=== PATIENT | female | born 1950 | race Caucasian/White ===

== ENCOUNTER 2017-01-14 09:59 | Emergency (ER) | payer BC, OTHER ==
[2017-01-14] MEDS ORDERED: Albuterol/Ipratropium 3.0-0.5 MG/3 ML Neb Soln ONE (10:03)
[2017-01-14] MEDS ORDERED: Albuterol/Ipratropium 3.0-0.5 MG/3 ML Neb Soln NEB ONE (10:03)
[2017-01-14] MEDS ORDERED: methylPREDNISolone Sodium Succinate 125 MG/2 ML SDV IM ONE (10:10)
--- NOTE | 2017-01-14 10:10 | EDM.PDOC ---
ED HISTORY OF PRESENT ILLNESS - General Chief Complaint: Respiratory Problem Stated Complaint: TROUBLE BREATHING Time Seen by Provider: 01/14/17 10:09 Source of Information: Reports: Patient - History of Present Illness INITIAL COMMENTS - FREE TEXT/NARRATIVE: HISTORY AND PHYSICAL: History of present illness: [] Patient presents post treatment for recent bronchitis, last week she saw Chelsie at [facility] and was diagnosed with bronchitis, she is provided azithromycin and HFA which he is using. However she has been wheezing over the last couple of days and therefore is been short of breath with ambulation, she is in no distress no retractions no purse lip breathing, but she has diffuse wheeze throughout. Denies smoking history No fever nausea vomiting chills sweats no chest pain headache dizziness or palpitation no bowel or urine symptoms Patient provided DuoNeb and Solu-Medrol with resolution of symptoms, ambulatory O2 sat 95% unremarkable Review of systems: As per history of present illness and below otherwise all systems reviewed and negative. Past medical history: As per history of present illness and as reviewed below otherwise noncontributory. Surgical history: As per history of present illness and as reviewed below otherwise noncontributory. Social history: No reported history of drug or alcohol abuse. Family history: As per history of present illness and as reviewed below otherwise noncontributory. Physical exam: HEENT: Atraumatic, normocephalic, pupils reactive, negative for conjunctival pallor or scleral icterus, mucous membranes moist, throat clear, neck supple, nontender, trachea midline. Lungs: Clear to auscultation, breath sounds equal bilaterally, chest nontender. Heart: S1S2, regular, negative for clicks, rubs, or JVD. Abdomen: Soft, nondistended, nontender. Negative for masses or hepatosplenomegaly. Negative for costovertebral tenderness. Pelvis: Stable nontender. Genitourinary: Deferred. Rectal: Deferred. Extremities: Atraumatic, negative for cords or calf pain. Neurovascular unremarkable. Neuro: Awake, alert, oriented. Cranial nerves II through XII unremarkable. Cerebellum unremarkable. Motor and sensory unremarkable throughout. Exam nonfocal. Diagnostics: [] Lab as below EKG Chest one view Therapeutics: [] Dual neb Solu-Medrol 125 mg IM Medrol Dosepak Continue HFA Return if symptoms persist or worsen Followup with primary care in 2 weeks sooner as needed Impression: [] Acute bronchitis Definitive disposition and diagnosis as appropriate pending reevaluation and review of above. - Related Data Allergies/ADRs: Allergies Allergy/AdvReac Type Severity Reaction Status Date / Time codeine Allergy Abdominal Verified 01/14/17 10:10 Pain morphine Allergy Abdominal Verified 01/14/17 10:09 Pain Sulfa (Sulfonamide Allergy Rash Verified 01/14/17 10:10 Antibiotics) Home Meds: Home Meds ALPRAZolam [Xanax] 0.25 mg PO ASDIRECTED PRN 01/14/17 [History] Etanercept [Enbrel] 50 mg SQ WEEKLY 01/14/17 [History] Isosorbide Mononitrate [Isosorbide Mononitrate ER] 30 mg PO DAILY 01/14/17 [ History] Levothyroxine [Synthroid] 50 mcg PO ACBREAKFAST 01/14/17 [History] Lisinopril 10 mg PO DAILY 01/14/17 [History] ED ROS GENERAL - Review of Systems Review Of Systems: ROS reveals no pertinent complaints other than HPI. ED EXAM, GENERAL - Physical Exam Exam: See Below Course - Vital Signs Last Recorded V/S: Last Vital Signs Temp 36.6 C 01/14/17 09:59 Pulse 80 01/14/17 09:59 Resp 22 H 01/14/17 09:59 BP 179/72 H 01/14/17 09:59 Pulse Ox 96 01/14/17 10:17 - Orders/Labs/Meds Orders: Active Orders 24 hr Category Date Time Status EKG 12 Lead [EKG Documentation Completion] [RC] STAT Care 01/14/17 10:02 Active EKG Documentation Completion [RC] STAT Care 01/14/17 10:08 Active RT Aerosol Therapy [RC] ASDIRECTED Care 01/14/17 10:27 Active Chest 1V Frontal [CR] Stat Exams 01/14/17 10:08 Taken Labs: Laboratory Tests 01/14/17 01/14/17 01/14/17 Range/Units 10:19 10:19 10:19 WBC 11.02 H (4.0-11.0) K/uL RBC 4.45 (4.30-5.90) M/uL Hgb 13.6 (12.0-16.0) g/dL Hct 42.0 (36.0-46.0) % MCV 94.4 (80.0-98.0) fL MCH 30.6 (27.0-32.0) pg MCHC 32.4 (31.0-37.0) g/dL RDW Std Deviation 45.2 (28.0-62.0) fl RDW Coeff of Jessika 13 (11.0-15.0) % Plt Count 292 (150-400) K/uL MPV 10.50 (7.40-12.00) fL Neut % (Auto) 72.8 (48.0-80.0) % Lymph % (Auto) 19.4 (16.0-40.0) % [place] % (Auto) 4.5 (0.0-15.0) % Eos % (Auto) 3.0 (0.0-7.0) % Baso % (Auto) 0.3 (0.0-1.5) % Neut # (Auto) 8.0 H (1.4-5.7) K/uL Lymph # (Auto) 2.1 (0.6-2.4) K/uL Hardeman # (Auto) 0.5 (0.0-0.8) K/uL Eos # (Auto) 0.3 (0.0-0.7) K/uL Baso # (Auto) 0.0 (0.0-0.1) K/uL Nucleated RBC % 0.0 /100WBC Nucleated RBCs # 0 K/uL Sodium 140 (136-146) mmol/L Potassium 4.1 (3.5-5.1) mmol/L Chloride 107 (98-110) mmol/L Carbon Dioxide 24 (21-31) mmol/L BUN 10 (6.0-23.0) mg/dL Creatinine 0.8 (0.6-1.5) mg/dL Est Cr Clr Drug Dosing 63.93 mL/min Estimated GFR (MDRD) > 60.0 ml/min Glucose 128 H (60-110) mg/dL Calcium 9.5 (8.8-10.8) mg/dL Total Bilirubin 0.5 (0.1-1.5) mg/dL AST 14 (5-40) IU/L ALT 18 (8-54) IU/L Alkaline Phosphatase 110 (40-150) Troponin I < 0.10 (0.0-0.29) NG/ML Total Protein 7.6 (6.0-8.0) g/dL Albumin 4.0 (3.4-4.8) g/dL Globulin 3.6 H (2.0-3.5) g/dL Albumin/Globulin Ratio 1.1 L (1.3-2.8) Urine Color Urine Appearance Urine pH (5.0-8.0) Ur Specific [place] (1.001-1.035) Urine Protein (NEGATIVE) mg/dL Urine Glucose (UA) (NEGATIVE) mg/dL Urine Ketones (NEGATIVE) mg/dL Urine Occult Blood (NEGATIVE) Urine Nitrite (NEGATIVE) Urine Bilirubin (NEGATIVE) Urine Urobilinogen (<2.0) EU/dL Ur Leukocyte Esterase (NEGATIVE) Urine RBC (0-2/HPF) Urine WBC (0-5/HPF) Ur Epithelial Cells (NONE-FEW) Urine Bacteria (NEGATIVE) 01/14/17 Range/Units 10:25 WBC (4.0-11.0) K/uL RBC (4.30-5.90) M/uL Hgb (12.0-16.0) g/dL Hct (36.0-46.0) % MCV (80.0-98.0) fL MCH (27.0-32.0) pg MCHC (31.0-37.0) g/dL RDW Std Deviation (28.0-62.0) fl RDW Coeff of Jessika (11.0-15.0) % Plt Count (150-400) K/uL MPV (7.40-12.00) fL Neut % (Auto) (48.0-80.0) % Lymph % (Auto) (16.0-40.0) % Hardeman % (Auto) (0.0-15.0) % Eos % (Auto) (0.0-7.0) % Baso % (Auto) (0.0-1.5) % Neut # (Auto) (1.4-5.7) K/uL Lymph # (Auto) (0.6-2.4) K/uL Hardeman # (Auto) (0.0-0.8) K/uL Eos # (Auto) (0.0-0.7) K/uL Baso # (Auto) (0.0-0.1) K/uL Nucleated RBC % /100WBC Nucleated RBCs # K/uL Sodium (136-146) mmol/L Potassium (3.5-5.1) mmol/L Chloride (98-110) mmol/L Carbon Dioxide (21-31) mmol/L BUN (6.0-23.0) mg/dL Creatinine (0.6-1.5) mg/dL Est Cr Clr Drug Dosing mL/min Estimated GFR (MDRD) ml/min Glucose (60-110) mg/dL Calcium (8.8-10.8) mg/dL Total Bilirubin (0.1-1.5) mg/dL AST (5-40) IU/L ALT (8-54) IU/L Alkaline Phosphatase (40-150) Troponin I (0.0-0.29) NG/ML Total Protein (6.0-8.0) g/dL Albumin (3.4-4.8) g/dL Globulin (2.0-3.5) g/dL Albumin/Globulin Ratio (1.3-2.8) Urine Color YELLOW Urine Appearance CLEAR Urine pH 7.5 (5.0-8.0) Ur Specific [place] 1.015 (1.001-1.035) Urine Protein NEGATIVE (NEGATIVE) mg/dL Urine Glucose (UA) NEGATIVE (NEGATIVE) mg/dL Urine Ketones NEGATIVE (NEGATIVE) mg/dL Urine Occult Blood NEGATIVE (NEGATIVE) Urine Nitrite NEGATIVE (NEGATIVE) Urine Bilirubin NEGATIVE (NEGATIVE) Urine Urobilinogen 0.2 (<2.0) EU/dL Ur Leukocyte Esterase TRACE (NEGATIVE) Urine RBC 0-1 (0-2/HPF) Urine WBC 0-2 (0-5/HPF) Ur Epithelial Cells FEW (NONE-FEW) Urine Bacteria FEW (NEGATIVE) Meds: Medications Discontinued Medications Generic Name Dose Route Start Last Admin Trade Name Freq PRN Reason Stop Dose Admin Albuterol/Ipratropium Confirm 01/14/17 10:03 01/14/17 10:16 Duoneb 3.0-0.5 Mg/3 Ml Administered 01/14/17 10:04 3 ml Dose Administration 3 ml .ROUTE .STK-MED ONE Albuterol/Ipratropium 3 ml 01/14/17 10:03 01/14/17 11:11 Duoneb 3.0-0.5 Mg/3 Ml NEB 01/14/17 10:04 Not Given ONETIME ONE Methylprednisolone Sodium Succinate 125 mg 01/14/17 10:10 01/14/17 11:11 Solu-Medrol IM 01/14/17 10:11 125 mg ONETIME ONE Administration Departure - Departure Time of Disposition: 11:43 Disposition: Home, Self-Care 01 Condition: good Clinical Impression: Acute bronchitis Forms: ED Department Discharge Additional Instructions: Medication as prescribed Continue albuterol as prescribed Return to ER if symptoms persist or worsen despite treatment Followup with Eunice Morejon as needed or in 2 weeks The following information is given to patients seen in the emergency department who are being discharged to home. This information is to outline your options for follow-up care. We provide all patients seen in our emergency department with a follow-up referral. The need for follow-up, as well as the timing and circumstances, are variable depending upon the specifics of your emergency department visit. If you don't have a primary care physician on staff, we will provide you with a referral. We always advise you to contact your personal physician following an emergency department visit to inform them of the circumstance of the visit and for follow-up with them and/or the need for any referrals to a consulting specialist. The emergency department will also refer you to a specialist when appropriate. This referral assures that you have the opportunity for follow-up care with a specialist. All of these measure are taken in an effort to provide you with optimal care, which includes your follow-up. Under all circumstances we always encourage you to contact your private physician who remains a resource for coordinating your care. When calling for follow-up care, please make the office aware that this follow-up is from your recent emergency room visit. If for any reason you are refused follow-up, please contact the [facility] emergency department at and asked to speak to the emergency department charge nurse. - My Orders Last 24 Hours: My Active Orders 01/14/17 10:02 EKG 12 Lead [EKG Documentation Completion] [RC] STAT 01/14/17 10:08 EKG Documentation Completion [RC] STAT Chest 1V Frontal [CR] Stat 01/14/17 10:27 RT Aerosol Therapy [RC] ASDIRECTED - Assessment/Plan Last 24 Hours: My Active Orders 01/14/17 10:02 EKG 12 Lead [EKG Documentation Completion] [RC] STAT 01/14/17 10:08 EKG Documentation Completion [RC] STAT Chest 1V Frontal [CR] Stat 01/14/17 10:27 RT Aerosol Therapy [RC] ASDIRECTED
[2017-01-14 10:47] LABS: CHLORIDE,CL 107 mmol/L (98-110); SODIUM,NA 140 mmol/L (136-146)
[2017-01-14 12:11] VITALS: BP 165/68
--- NOTE | 2017-01-14 16:10 | CR ---
EXAM DATE: 01/14/17 PATIENT'S AGE: 66 Patient: KENNY ARAMBULA Facility: [place], [place] Site . Site : 1950 Study: XRay Chest [id number]/27/2017 10:36:27 AM Ordering Physician: Levi Aggarwal Final Report: INDICATION: sob INDICATION: Shortness of breath. TECHNIQUE: Chest 1 view. COMPARISON: None FINDINGS: Cardiovascular and mediastinum: Heart size and vasculature are normal in caliber and appearance. Mediastinum is within normal limits. Lungs and pleural space: Lungs are clear. No sign of infiltrate or mass. No sign of pleural effusion. No pneumothorax. Bones and soft tissues: No significant findings. IMPRESSION: Unremarkable chest. Dictated by Amari Alicea MD @ 01/14/2017 10:56:27 AM Dictated by: Amari Alicea MD @ 01/14/2017 10:56:38 (Electronic Signature) Report Signed by Proxy. [facility]
== END 2017-01-14 12:12 | disposition home or self-care (01) ==
LOC: MW.ED 09:59
DX: J20.9 Acute bronchitis, unspecified (principal); Z79.899 Other long term (current) drug therapy; Z88.5 Allergy status to narcotic agent; Z88.2 Allergy status to sulfonamides; Z88.6 Allergy status to analgesic agent
CPT/HCPCS: 36415; 71010; 80053; 81001; 84484; 85025; 93005; 94664; 96372; 99285; J2930; 99284

== ENCOUNTER 2017-01-27 03:20 | Inpatient (IN) | payer BC ==
[2017-01-27] MEDS ORDERED: Albuterol/Ipratropium 3.0-0.5 MG/3 ML Neb Soln ONE (03:23)
[2017-01-27] MEDS ORDERED: Albuterol/Ipratropium 3.0-0.5 MG/3 ML Neb Soln NEB ONE (03:30)
[2017-01-27] MEDS ORDERED: methylPREDNISolone Sodium Succinate 125 MG/2 ML SDV IVPUSH ONE (03:30)
[2017-01-27] MEDS ORDERED: Sodium Chloride 0.9% 2.5 ML Syringe FLUSH PRN ×2 (03:30→04:28)
[2017-01-27] MEDS ORDERED: Sodium Chloride 0.9% 10 ML Syringe FLUSH PRN ×2 (03:30→04:28)
[2017-01-27] MEDS ORDERED: Sodium Chloride 0.9% 1,000 ML IV ONE (03:31)
--- NOTE | 2017-01-27 03:34 | EDM.PDOC ---
ED HPI GENERAL MEDICAL PROBLEM - General Chief Complaint: Respiratory Problem Stated Complaint: SHORTNESS OF BREATH Time Seen by Provider: 01/27/17 03:23 - History of Present Illness INITIAL COMMENTS - FREE TEXT/NARRATIVE: HISTORY AND PHYSICAL: History of present illness: The patient is a 66-year-old female with a history of hypertension hypothyroidism who presented to our ED on January 14 with shortness of breath and was treated as an acute bronchitis with steroids and inhalers. Patient says that she did go home on the Medrol Blue in and followed up with a provider on Wednesday and was placed on Zithromax Flovent and duo neb nebulizer and since that time she has been feeling more short of breath. She says she has a hacking cough for almost 3 weeks which is nonproductive she doesn't have any chest pain or shortness of breath seems to be worse. She is audibly wheezing but denies any fever chills vomiting nausea or diarrhea. Prior to these visits patient did not have any pulmonary history and has no smoking history. Patient denies any chest pain or leg edema. Patient states that she did do a nebulizer treatment this morning but did not see improvement. She states she has been using her nebulizer every 4 hours. Patient states she had one prior episode of acute bronchitis while she was status in October of this year and was treated with antibiotics and says she improved. Prior to that episode in October she has never had any bronchitic symptoms or episodes like she's been having this year. Review of systems: As per history of present illness and below otherwise all systems reviewed and negative. Past medical history: As per history of present illness and as reviewed below otherwise noncontributory. Surgical history: As per history of present illness and as reviewed below otherwise noncontributory. Social history: No reported history of drug or alcohol abuse. Family history: As per history of present illness and as reviewed below otherwise noncontributory. Physical exam: General: Well-developed overweight female who is nontoxic and breathless on my evaluation. Vitals been noted by me including a room air O2 sat of 86% tachypnea and hypertension.. She is audibly wheezing on my evaluation but is not diaphoretic. HEENT: Atraumatic, normocephalic, pupils reactive, negative for conjunctival pallor or scleral icterus, mucous membranes dry, throat clear, neck supple, nontender, trachea midline. Lungs: Tight air exchange with diffuse expiratory wheezing and mild increased work of breathing and abdominal muscle use but no stridor, breath sounds equal bilaterally, chest nontender. Heart: S1S2, regular rate and slightly tachycardic on my evaluation, negative for clicks, rubs, or JVD. Abdomen: Soft, nondistended, nontender. Negative for masses or hepatosplenomegaly. NABS Pelvis: Stable nontender. Genitourinary: Deferred. Rectal: Deferred. Extremities: Atraumatic, negative for cords or calf pain. Neurovascular unremarkable. No pedal edema or leg asymmetry Neuro: Awake, alert, oriented. Cranial nerves II through XII unremarkable. Cerebellum unremarkable. Motor and sensory unremarkable throughout. Exam nonfocal. Diagnostics: EKG chest x-ray CBC CMP troponin Therapeutics: IV O2 monitor IV fluids Solu-Medrol duo neb 0345: Reevaluation after DuoNeb patient is no longer audibly wheezing but still has tight air exchange with a fine expiratory wheeze and O2 sats on 3 L of oxygen are 96%. She is much less work of breathing and is not breathless. We will continue to monitor and repeat neb and have given her Solu-Medrol and await her testing results. Every discussed with the patient and at bedside in light of her presenting O2 sat of 86% she will be admitted to the hospital as it is unlikely to completely turn her around enough for discharge home. I discussed all testing results with the patient and at bedside. She is aware of need for admission. I will discuss the case with our hospitalist for further care plan and admission 0405: Case was discussed with our hospitalist Dr. Ovalles; he agrees with inpatient admission and would like to Zosyn to be given and no blood cultures at this time. Impression: Acute bronchospasm/recurrent bronchitis with hypoxia Definitive disposition and diagnosis as appropriate pending reevaluation and review of above. no pain verbalized Pain Score (Numeric/FACES): 0 - Related Data Allergies Allergy/AdvReac Type Severity Reaction Status Date / Time codeine Allergy Abdominal Verified 01/27/17 03:25 Pain morphine Allergy Abdominal Verified 01/27/17 03:25 Pain Sulfa (Sulfonamide Allergy Rash Verified 01/27/17 03:25 Antibiotics) Home Meds: Home Meds ALPRAZolam [Xanax] 0.25 mg PO ASDIRECTED PRN 01/14/17 [History] Isosorbide Mononitrate [Isosorbide Mononitrate ER] 30 mg PO DAILY 01/14/17 [ History] Levothyroxine [Synthroid] 75 mcg PO ACBREAKFAST 01/14/17 [History] Past Medical History Cardiovascular History: Reports: Hypertension Musculoskeletal History: Reports: RA Endocrine/Metabolic History: Reports: Hypothyroidism Social & Family History - Family History Family Medical History: Noncontributory - Tobacco Use Smoking Status *Q: Never Smoker - Recreational Drug Use Recreational Drug Use: No ED ROS GENERAL - Review of Systems Review Of Systems: ROS reveals no pertinent complaints other than HPI. ED EXAM, GENERAL - Physical Exam Exam: See Below (See dictation) Course - Vital Signs Last Recorded V/S: Last Vital Signs Temp 36.6 C 01/27/17 03:25 Pulse 107 H 01/27/17 04:02 Resp 26 H 01/27/17 04:02 BP 171/82 H 01/27/17 04:02 Pulse Ox 98 01/27/17 04:02 - Orders/Labs/Meds Orders: Active Orders 24 hr Category Date Time Status Patient Status [ADT] Stat ADT 01/27/17 04:07 Ordered Cardiac Monitoring [RC] . DIRECTED Care 01/27/17 03:30 Active Cardiac Monitoring [RC] . DIRECTED Care 01/27/17 04:07 Ordered EKG Documentation Completion [RC] STAT Care 01/27/17 03:30 Active Oxygen Therapy, ED [RC] ASDIRECTED Care 01/27/17 03:30 Active Pulse Oximetry [RC] ASDIRECTED Care 01/27/17 03:30 Active RT Aerosol Therapy [RC] ASDIRECTED Care 01/27/17 03:30 Active Chest 1V Frontal [CR] Stat Exams 01/27/17 03:30 Taken Piperacillin/Tazobactam [Piperacil-Tazobact] 3.375 gm Med 01/27/17 04:07 Ordered Sodium Chloride 0.9% [Normal Saline] 50 ml IV ONETIME Sodium Chloride 0.9% [Normal Saline] 1,000 ml Med 01/27/17 03:31 Active IV STAT Sodium Chloride 0.9% [Saline Flush] Med 01/27/17 03:30 Active 10 ml FLUSH ASDIRECTED PRN Sodium Chloride 0.9% [Saline Flush] Med 01/27/17 03:30 Active 2.5 ml FLUSH ASDIRECTED PRN Saline Lock Insert [OM.PC] Stat Oth 01/27/17 03:30 Ordered Medication Orders Sodium Chloride (Normal Saline) 1,000 mls @ 999 mls/hr IV STAT ONE Stop: 01/27/17 04:31 Last Admin: 01/27/17 03:36 Dose: 999 mls/hr Sodium Chloride (Saline Flush) 10 ml FLUSH ASDIRECTED PRN PRN Reason: Keep Vein Open Last Admin: 01/27/17 03:36 Dose: 10 ml Sodium Chloride (Saline Flush) 2.5 ml FLUSH ASDIRECTED PRN PRN Reason: Keep Vein Open Last Admin: 01/27/17 03:36 Dose: 2.5 ml Labs: Laboratory Tests 01/27/17 01/27/17 01/27/17 Range/Units 03:32 03:32 03:32 WBC 17.53 H (4.0-11.0) K/uL RBC 4.46 (4.30-5.90) M/uL Hgb 13.6 (12.0-16.0) g/dL Hct 42.9 (36.0-46.0) % MCV 96.2 (80.0-98.0) fL MCH 30.5 (27.0-32.0) pg MCHC 31.7 (31.0-37.0) g/dL RDW Std Deviation 45.2 (28.0-62.0) fl RDW Coeff of Jessika 13 (11.0-15.0) % Plt Count 301 (150-400) K/uL MPV 9.70 (7.40-12.00) fL Neut % (Auto) 68.2 (48.0-80.0) % Lymph % (Auto) 14.7 L (16.0-40.0) % [place] % (Auto) 7.3 (0.0-15.0) % Eos % (Auto) 9.5 H (0.0-7.0) % Baso % (Auto) 0.3 (0.0-1.5) % Neut # (Auto) 12.0 H (1.4-5.7) K/uL Lymph # (Auto) 2.6 H (0.6-2.4) K/uL [place] # (Auto) 1.3 H (0.0-0.8) K/uL Eos # (Auto) 1.7 H (0.0-0.7) K/uL Baso # (Auto) 0.1 (0.0-0.1) K/uL Lactate (0.20-2.00) mmol/L Sodium 139 (136-146) mmol/L Potassium 4.3 (3.5-5.1) mmol/L Chloride 106 (98-110) mmol/L Carbon Dioxide 24 (21-31) mmol/L BUN 17 (6.0-23.0) mg/dL Creatinine 0.9 (0.6-1.5) mg/dL Est Cr Clr Drug Dosing 56.82 mL/min Estimated GFR (MDRD) > 60.0 ml/min Glucose 148 H (60-110) mg/dL Calcium 9.5 (8.8-10.8) mg/dL Total Bilirubin 0.5 (0.1-1.5) mg/dL AST 11 (5-40) IU/L ALT 13 (8-54) IU/L Alkaline Phosphatase 102 (40-150) Troponin I < 0.10 (0.0-0.29) NG/ML Total Protein 7.4 (6.0-8.0) g/dL Albumin 4.0 (3.4-4.8) g/dL Globulin 3.4 (2.0-3.5) g/dL Albumin/Globulin Ratio 1.2 L (1.3-2.8) 01/27/17 Range/Units 03:32 WBC (4.0-11.0) K/uL RBC (4.30-5.90) M/uL Hgb (12.0-16.0) g/dL Hct (36.0-46.0) % MCV (80.0-98.0) fL MCH (27.0-32.0) pg MCHC (31.0-37.0) g/dL RDW Std Deviation (28.0-62.0) fl RDW Coeff of Jessika (11.0-15.0) % Plt Count (150-400) K/uL MPV (7.40-12.00) fL Neut % (Auto) (48.0-80.0) % Lymph % (Auto) (16.0-40.0) % [place] % (Auto) (0.0-15.0) % Eos % (Auto) (0.0-7.0) % Baso % (Auto) (0.0-1.5) % Neut # (Auto) (1.4-5.7) K/uL Lymph # (Auto) (0.6-2.4) K/uL [place] # (Auto) (0.0-0.8) K/uL Eos # (Auto) (0.0-0.7) K/uL Baso # (Auto) (0.0-0.1) K/uL Lactate 1.2 (0.20-2.00) mmol/L Sodium (136-146) mmol/L Potassium (3.5-5.1) mmol/L Chloride (98-110) mmol/L Carbon Dioxide (21-31) mmol/L BUN (6.0-23.0) mg/dL Creatinine (0.6-1.5) mg/dL Est Cr Clr Drug Dosing mL/min Estimated GFR (MDRD) ml/min Glucose (60-110) mg/dL Calcium (8.8-10.8) mg/dL Total Bilirubin (0.1-1.5) mg/dL AST (5-40) IU/L ALT (8-54) IU/L Alkaline Phosphatase (40-150) Troponin I (0.0-0.29) NG/ML Total Protein (6.0-8.0) g/dL Albumin (3.4-4.8) g/dL Globulin (2.0-3.5) g/dL Albumin/Globulin Ratio (1.3-2.8) Meds: Medications Generic Name Dose Route Start Last Admin Trade Name Freq PRN Reason Stop Dose Admin Sodium Chloride 1,000 mls @ 999 mls/hr 01/27/17 03:31 01/27/17 03:36 Normal Saline IV 01/27/17 04:31 999 mls/hr STAT ONE Administration Sodium Chloride 10 ml 01/27/17 03:30 01/27/17 03:36 Saline Flush FLUSH 10 ml ASDIRECTED PRN Administration Keep Vein Open Sodium Chloride 2.5 ml 01/27/17 03:30 01/27/17 03:36 Saline Flush FLUSH 2.5 ml ASDIRECTED PRN Administration Keep Vein Open Discontinued Medications Generic Name Dose Route Start Last Admin Trade Name Walker PRN Reason Stop Dose Admin Albuterol/Ipratropium Confirm 01/27/17 03:23 01/27/17 03:37 Duoneb 3.0-0.5 Mg/3 Ml Administered 01/27/17 03:24 Not Given Dose 3 ml .ROUTE .STK-MED ONE Albuterol/Ipratropium 3 ml 01/27/17 03:30 01/27/17 03:36 Duoneb 3.0-0.5 Mg/3 Ml NEB 01/27/17 03:31 3 ml ONETIME ONE Administration Methylprednisolone Sodium Succinate 125 mg 01/27/17 03:30 01/27/17 03:37 Solu-Medrol IVPUSH 01/27/17 03:31 125 mg ONETIME ONE Administration Departure - Departure Time of Disposition: 04:09 Disposition: Admitted As Inpatient 68 Condition: fair Clinical Impression: Hypoxia, Recurrent bronchospasm - Discharge Information Forms: ED Department Discharge - My Orders Last 24 Hours: My Active Orders 01/27/17 03:30 Cardiac Monitoring [RC] . DIRECTED EKG Documentation Completion [RC] STAT Oxygen Therapy, ED [RC] ASDIRECTED Pulse Oximetry [RC] ASDIRECTED RT Aerosol Therapy [RC] ASDIRECTED Chest 1V Frontal [CR] Stat Sodium Chloride 0.9% [Saline Flush] 10 ml FLUSH ASDIRECTED PRN Sodium Chloride 0.9% [Saline Flush] 2.5 ml FLUSH ASDIRECTED PRN Saline Lock Insert [OM.PC] Stat 01/27/17 03:31 Sodium Chloride 0.9% [Normal Saline] 1,000 ml IV STAT 01/27/17 04:07 Patient Status [ADT] Stat Cardiac Monitoring [RC] . DIRECTED Piperacillin/Tazobactam [Piperacil-Tazobact] 3.375 gm Sodium Chloride 0.9% [ Normal Saline] 50 ml IV ONETIME - Assessment/Plan Last 24 Hours: My Active Orders 01/27/17 03:30 Cardiac Monitoring [RC] . DIRECTED EKG Documentation Completion [RC] STAT Oxygen Therapy, ED [RC] ASDIRECTED Pulse Oximetry [RC] ASDIRECTED RT Aerosol Therapy [RC] ASDIRECTED Chest 1V Frontal [CR] Stat Sodium Chloride 0.9% [Saline Flush] 10 ml FLUSH ASDIRECTED PRN Sodium Chloride 0.9% [Saline Flush] 2.5 ml FLUSH ASDIRECTED PRN Saline Lock Insert [OM.PC] Stat 01/27/17 03:31 Sodium Chloride 0.9% [Normal Saline] 1,000 ml IV STAT 01/27/17 04:07 Patient Status [ADT] Stat Cardiac Monitoring [RC] . DIRECTED Piperacillin/Tazobactam [Piperacil-Tazobact] 3.375 gm Sodium Chloride 0.9% [ Normal Saline] 50 ml IV ONETIME
[2017-01-27 03:56] LABS: CHLORIDE,CL 106 mmol/L (98-110); SODIUM,NA 139 mmol/L (136-146)
[2017-01-27] MEDS ORDERED: Piperacillin/Tazobactam 3.375 GM in Sodium Chloride 0.9% 50 ML IV ONE (04:07)
[2017-01-27] MEDS ORDERED: LORazepam 1 MG Tab PO PRN (04:25)
[2017-01-27] MEDS: Levofloxacin/Dextrose 5%-Water 500 MG in Premix Bag 1 BAG IV SCH (05:15)
[2017-01-27] MEDS ORDERED: Albuterol/Ipratropium 3.0-0.5 MG/3 ML Neb Soln NEB SCH (06:00)
[2017-01-27] MEDS ORDERED: ALPRAZolam 0.25 MG Tab PO PRN (08:02)
--- NOTE | 2017-01-27 08:09 | PCM.HP ---
H&P History of Present Illness - General Date of Service: 01/27/17 Admit Problem/Dx: Admission Diagnosis/Problem Admission Diagnosis/Problem Hypoxia Source of Information: Patient History Limitations: Reports: No limitations - History of Present Illness Initial Comments - Free Text/Narative: The patient is a 66 year old female with a pmh of HTN and hypothyroidism who presented to the ED with complaints of persistent SOB and cough. She presented to the ED on January 14 with shortness of breath and was treated as an acute bronchitis with steroids and inhalers. Patient says that she did go home on the Medrol dose guillaume did improve and followed up with a provider on Wednesday and was placed on Zithromax Flovent and duo neb nebulizer and since that time she has been feeling more short of breath. She reports she has a hacking cough for almost 3 weeks which is nonproductive she doesn't have any chest pain or shortness of breath seems to be worse. She is audibly wheezing and feels very panicky because she can not catch her breath. She denies any fever/chills, N/V or diarrhea and constipation. She denies any history of tobacco or smoking history. No Pulmonary disease history. Patient denies any chest pain or leg edema. She states she has been using her nebulizer every 4 hours. She has history of RA and is on Enbrel, has been taking this for approximately 2 years. In the ED WBC 17,930 BMP WNL. CXR revealed no cardiopulmonary process. She was noted to be hypoxic on RA, 86% after duonebs. She will be admitted for acute bronchospasm/bronchitis and hypoxia. no pain verbalized Pain Score (Numeric/FACES): 0 - Related Data Allergies/Adverse Reactions: Allergies Allergy/AdvReac Type Severity Reaction Status Date / Time codeine Allergy Abdominal Verified 01/27/17 03:25 Pain morphine Allergy Abdominal Verified 01/27/17 03:25 Pain Sulfa (Sulfonamide Allergy Rash Verified 01/27/17 03:25 Antibiotics) Home Medications: Home Meds ALPRAZolam [Xanax] 0.25 mg PO ASDIRECTED PRN 01/14/17 [History] Isosorbide Mononitrate [Isosorbide Mononitrate ER] 30 mg PO DAILY 01/14/17 [ History] Levothyroxine [Synthroid] 75 mcg PO ACBREAKFAST 01/14/17 [History] Albuterol Sulfate [Proair Respiclick] 2 puff IH Q6HR 01/27/17 [History] Azithromycin [Zithromax] 250 mg PO ASDIRECTED 01/27/17 [History] Cholecalciferol (Vitamin D3) [D-2000] 1,000 unit PO DAILY 01/27/17 [History] Etanercept [Enbrel] 50 mg SQ WEEKLY 01/27/17 [History] Fluticasone Propionate [Flovent HFA 220 mcg] 2 puff INH BID 01/27/17 [History] Lisinopril/Hydrochlorothiazide [Lisinopril-Hctz 20-12.5 mg Tab] 1 each PO DAILY 01/27/17 [History] Past Medical History HEENT History: Reports: None Cardiovascular History: Reports: Hypertension. Denies: Blood clots/VTE/DVT, CAD , Heart Failure, High cholesterol, PA Respiratory History: Reports: Bronchitis, recurrent. Denies: Asthma, COPD Gastrointestinal History: Reports: None. Denies: GERD, GI bleed Genitourinary History: Reports: None. Denies: Acute renal failure, Chronic renal insuffiency [employer] History: Reports: None Musculoskeletal History: Reports: RA Neurological History: Reports: None. Denies: CVA, TIA Psychiatric History: Reports: Anxiety, Depression Endocrine/Metabolic History: Reports: Hypothyroidism, Obesity/BMI 30+. Denies: Diabetes, type II Hematologic History: Reports: None Immunologic History: Reports: None Oncologic (Cancer) History: Reports: None Dermatologic History: Reports: None - Infectious Disease History Infectious Disease History: Reports: None Social & Family History - Family History Family Medical History: Noncontributory Cardiac: Reports: PA - Tobacco Use Smoking Status *Q: Never Smoker Second Hand Smoke Exposure: No - Caffeine Use Caffeine Use: Reports: Coffee - Alcohol Use Days Per Week of Alcohol Use: 3 Number of Drinks Per Day: 1 Total Drinks Per Week: 3 - Recreational Drug Use Recreational Drug Use: No H&P Review of Systems - Review of Systems: Review Of Systems: See Below General: Reports: malaise. Denies: fever, chills HEENT: Reports: no symptoms, sore throat (from coughing) Pulmonary: Reports: No Symptoms, Shortness of Breath, Wheezing, Cough. Denies: Sputum, Hemoptysis Cardiovascular: Reports: no symptoms, dyspnea on exertion. Denies: chest pain, palpitations, lightheadedness Gastrointestinal: Reports: No symptoms. Denies: Abdominal pain, Black stool, Bloody stool, Constipation, Diarrhea, Distension, Flatus, Nausea, Vomiting Genitourinary: Reports: no symptoms. Denies: dysuria, frequency, burning, pain Musculoskeletal: Reports: no symptoms. Denies: neck pain Skin: Reports: no symptoms Psychiatric: Reports: no symptoms (SOB), anxiety. Denies: depression Neurological: Reports: No Symptoms. Denies: Confusion, Dizziness Hematologic/Lymphatic: Reports: no symptoms Immunologic: Reports: no symptoms Exam - Exam Exam: See Below - Vital Signs Vital Signs: Last Vital Signs Temp 97.9 F 01/27/17 04:55 Pulse 104 H 01/27/17 04:55 Resp 22 H 01/27/17 04:55 BP 184/69 H 01/27/17 04:55 Pulse Ox 96 01/27/17 04:55 Weight: 92.3 kg - Exam General: alert, oriented, cooperative HEENT: Conjunctiva clear, EACs clear, EOMI, Hearing intact, Mucosa moist & pink , Nares patent, Posterior pharynx clear Neck: supple, trachea midline, full range of motion. No: lymphadenopathy Lungs: Decreased breath sounds, Rhonchi, Wheezing Cardiovascular: regular rate, regular rhythm Abdomen: Normal Bowel Sounds, Soft. No: Organomegaly, Distention, Tenderness Back Exam: normal inspection, full range of motion, NT Extremities: normal inspection, normal pulses. No: calf tenderness, edema Neuro Extensive - Mental Status: alert, oriented x3, normal mood/affect, normal cognition Neuro Extensive - Motor, Sensory, Reflexes: CN II-XII intact, normal gait, normal reflexes Psychiatric: alert, normal affect, normal mood - Patient Data Result Diagrams: 01/27/17 03:32 01/27/17 03:32 *Q Meaningful Use (ADM) - VTE *Q VTE Criteria *Q: - VTE Risk Assess *Q Each Risk Factor Represents 1 Point: Obesity (BMI greater than 30) Total Score 1 Point Risk Factors: 1 Each Risk Factor Represents 2 Points: Age 60 - 74 Years Total Score 2 Point Risk Factors: 2 Each Risk Factor Represents 3 Points: None Total Score 3 Point Risk Factors: 0 Each Risk Factor Represents 5 Points: None Total Score 5 Point Risk Factors: 0 Venous Thromboembolism Risk Factor Score *Q: 3 - Stroke *Q Stroke Criteria *Q: - AMI *Q AMI Criteria *Q: - Problem List (1) Hypoxia SNOMED Code(s): 963869738, 376222498 ICD Code: R09.02 - HYPOXEMIA Status: Acute Current Visit: Yes (2) Recurrent bronchospasm SNOMED Code(s): 8848684 ICD Code: J98.09 - OTHER DISEASES OF BRONCHUS, NOT ELSEWHERE CLASSIFIED Status: Acute Current Visit: Yes (3) Acute bronchitis SNOMED Code(s): 99223929 ICD Code: J20.9 - ACUTE BRONCHITIS, UNSPECIFIED Status: Acute Current Visit: No Qualifiers: Bronchitis organism: unspecified organism Qualified Code(s): J20.9 - Acute bronchitis, unspecified (4) Hypothyroid SNOMED Code(s): 89241210 ICD Code: E03.9 - HYPOTHYROIDISM, UNSPECIFIED Status: Chronic Current Visit: Yes Qualifiers: Hypothyroidism type: unspecified Qualified Code(s): E03.9 - Hypothyroidism , unspecified (5) Rheumatoid arthritis SNOMED Code(s): 25733428 ICD Code: M06.9 - RHEUMATOID ARTHRITIS, UNSPECIFIED Status: Chronic Current Visit: Yes (6) HTN (hypertension) SNOMED Code(s): 96291727 ICD Code: I10 - ESSENTIAL (PRIMARY) HYPERTENSION Status: Chronic Current Visit: Yes Qualifiers: Hypertension type: essential hypertension Qualified Code(s): I10 - Essential (primary) hypertension Problem List Initiated/Reviewed/Updated: Yes Orders Last 24hrs: Active Orders 24 hr Category Date Time Status Activity as Tolerated [RC] .Routine Care 01/27/17 04:25 Active RT Aerosol Therapy [RC] ASDIRECTED Care 01/27/17 04:26 Active Regular Diet [DIET] Diet 01/27/17 Breakfast Active ALPRAZolam [Xanax] Med 01/27/17 08:02 Active 0.25 mg PO TID PRN Albuterol/Ipratropium [DuoNeb 3.0-0.5 MG/3 ML] Med 01/27/17 06:00 Active 3 ml NEB Q6HRRT Cholecalciferol (Vitamin D3) [Vitamin D3] Med 01/27/17 09:00 Active 1,000 units PO DAILY Fluticasone Propionate [Flovent HFA 220 MCG] Med 01/27/17 09:00 Active 12 gm INH BID Hydrochlorothiazide Med 01/27/17 09:00 Active 12.5 mg PO DAILY Isosorbide Mononitrate [Imdur] Med 01/27/17 09:00 Active 30 mg PO DAILY LORazepam [Ativan] Med 01/27/17 04:25 Active 1 mg PO Q6H PRN Levofloxacin/Dextrose 5%-Water [Levaquin in D5W 500 MG/ Med 01/27/17 04:30 Active 100 ML] 500 mg Premix Bag 1 bag IV Q24H Levothyroxine Med 01/28/17 07:30 Active 75 mcg PO ACBREAKFAST Lisinopril [Prinivil] Med 01/27/17 09:00 Active 20 mg PO DAILY Piperacillin/Tazobactam [Piperacil-Tazobact] 3.375 gm Med 01/27/17 10:00 Active Sodium Chloride 0.9% [Normal Saline] 50 ml IV Q6H Sodium Chloride 0.9% [Saline Flush] Med 01/27/17 04:28 Active 10 ml FLUSH ASDIRECTED PRN Sodium Chloride 0.9% [Saline Flush] Med 01/27/17 04:28 Active 2.5 ml FLUSH ASDIRECTED PRN methylPREDNISolone Sod Succ [Solu-MEDROL] Med 01/27/17 09:30 Active 125 mg IVPUSH Q6H Convert IV to Saline Lock [OM.PC] Routine Oth 01/27/17 04:28 Ordered Medication Orders Albuterol/Ipratropium (Duoneb 3.0-0.5 Mg/3 Ml) 3 ml NEB Q6HRRT [facility] Last Admin: 01/27/17 05:45 Dose: 3 ml Alprazolam (Xanax) 0.25 mg PO TID PRN PRN Reason: Anxiety Cholecalciferol (Vitamin D3) 1,000 units PO DAILY [facility] Fluticasone Propionate (Flovent Hfa 220 Mcg) 12 gm INH BID [facility] Hydrochlorothiazide (Hydrochlorothiazide) 12.5 mg PO DAILY [facility] Levofloxacin/Dextrose 500 mg/ (Premix) 100 mls @ 100 mls/hr IV Q24H [facility] Last Admin: 01/27/17 05:15 Dose: 100 mls/hr Piperacillin Sod/Tazobactam (Sod 3.375 gm/ Sodium Chloride) 50 mls @ 100 mls/ hr IV Q6H [facility] Isosorbide Mononitrate (Imdur) 30 mg PO DAILY [facility] Levothyroxine Sodium (Levothyroxine) 75 mcg PO ACBREAKFAST [facility] Lisinopril (Prinivil) 20 mg PO DAILY [facility] Lorazepam (Ativan) 1 mg PO Q6H PRN PRN Reason: Anxiety Methylprednisolone Sodium Succinate (Solu-Medrol) 125 mg IVPUSH Q6H [facility] Sodium Chloride (Saline Flush) 10 ml FLUSH ASDIRECTED PRN PRN Reason: Keep Vein Open Sodium Chloride (Saline Flush) 2.5 ml FLUSH ASDIRECTED PRN PRN Reason: Keep Vein Open Assessment/Plan Comment:: This 66 year old female admitted with acute bronchospams/bronchitis and hypoxia 1. Acute bronchospasm: No hx of airway disease, maybe reactive airway. Will treat with Duonebs, Solumedrol, and oxygen. Wean oxygen as able to keep sats > 90. 2. Leukocytosis: May be due to steroid use in the last couple weeks, but will cover with Levaquin, Vancomycin and Zosyn. High risk for infections due to Enbrel and steroid useage. Covering for underlying PNA. 3. HTN: Restart home medications, Lisinopril/HCTZ and Imdur. 4. Hypothyroidism: Continue Levothyrozine 5. RA: Hold Ebrel. She has been afebrile. VTE prophylaxis: Lovenox. Dispo: Pending improvement.
[2017-01-27] MEDS: Fluticasone Propionate 220 MCG/Puff 12 GM Inhaler INH SCH ×2 (09:11→20:27)
[2017-01-27] MEDS: Albuterol/Ipratropium 3.0-0.5 MG/3 ML Neb Soln NEB SCH ×4 (09:20→21:12)
[2017-01-27] MEDS: Piperacillin/Tazobactam 3.375 GM in Sodium Chloride 0.9% 50 ML IV SCH ×3 (09:22→21:57)
[2017-01-27] MEDS: Cholecalciferol (Vitamin D3) 1,000 Unit Tab PO SCH (09:23)
[2017-01-27] MEDS: Hydrochlorothiazide 12.5 MG Cap PO SCH (09:23)
[2017-01-27] MEDS: methylPREDNISolone Sodium Succinate 125 MG/2 ML SDV IVPUSH SCH ×3 (09:24→22:00)
[2017-01-27] MEDS: Lisinopril 10 MG Tab PO SCH (09:26)
[2017-01-27] MEDS: Isosorbide Mononitrate 30 MG Tab.ER PO SCH (09:27)
[2017-01-27] MEDS: Enoxaparin 40 MG/0.4 ML Syringe SUBCUT SCH (12:00)
[2017-01-27] MEDS: Benzonatate 100 MG Cap PO PRN ×2 (13:02→17:17)
[2017-01-27] MEDS ORDERED: cloNIDine 0.1 MG Tab PO PRN (15:16)
--- NOTE | 2017-01-27 16:32 | CR ---
EXAM DATE: 01/27/17 PATIENT'S AGE: 66 Patient: KENNY ARAMBULA Facility: [place], [place] Site . Site : 1950 Study: XRay Chest [id number]/10/2017 3:42:15 AM Ordering Physician: Vane Pickard Final Report: Indication: Shortness of breath Technique: Chest 1 view Comparison: 01/14/2017 Findings/Impression: Cardiovascular and mediastinum: Heart size and vasculature are normal in caliber and appearance. Mediastinum is within normal limits. Lungs and pleural space: Lungs are clear. No sign of infiltrate or mass. No sign of pleural effusion. No pneumothorax. Bones and soft tissues: No significant findings. Dictated by Ganga Reyna MD @ 01/27/2017 3:49:39 AM Dictated by: Ganga Reyna MD @ 01/27/2017 03:49:45 (Electronic Signature) Report Signed by Proxy. MTDDc
[2017-01-28] MEDS: Albuterol/Ipratropium 3.0-0.5 MG/3 ML Neb Soln NEB SCH ×6 (02:27→21:33)
[2017-01-28] MEDS: methylPREDNISolone Sodium Succinate 125 MG/2 ML SDV IVPUSH SCH ×2 (04:08→08:53)
[2017-01-28] MEDS: Piperacillin/Tazobactam 3.375 GM in Sodium Chloride 0.9% 50 ML IV SCH ×4 (04:08→21:28)
[2017-01-28] MEDS: Levofloxacin/Dextrose 5%-Water 500 MG in Premix Bag 1 BAG IV SCH (05:07)
[2017-01-28 05:44] LABS: CHLORIDE,CL 106 mmol/L (98-110); SODIUM,NA 140 mmol/L (136-146)
[2017-01-28] MEDS: Fluticasone Propionate 220 MCG/Puff 12 GM Inhaler INH SCH ×2 (06:22→21:34)
[2017-01-28] MEDS: Levothyroxine 75 MCG Tab PO SCH (06:48)
[2017-01-28] MEDS: Lisinopril 10 MG Tab PO SCH (08:52)
[2017-01-28] MEDS: Hydrochlorothiazide 12.5 MG Cap PO SCH (08:53)
[2017-01-28] MEDS: Cholecalciferol (Vitamin D3) 1,000 Unit Tab PO SCH (08:53)
[2017-01-28] MEDS: guaiFENesin 100 MG/5 ML Soln 10 ML UD Cup PO PRN ×4 (08:53→22:05)
[2017-01-28] MEDS: Isosorbide Mononitrate 30 MG Tab.ER PO SCH (08:53)
[2017-01-28] MEDS: Enoxaparin 40 MG/0.4 ML Syringe SUBCUT SCH (09:50)
--- NOTE | 2017-01-28 12:51 | PCM.PN ---
- General Info Date of Service: 01/28/17 - Review of Systems Systems Review Comment:: she is feeling much improved. She is breathing easier. - Patient Data Vitals - most recent: Last Vital Signs Temp 98.0 F 01/28/17 11:53 Pulse 102 H 01/28/17 11:53 Resp 18 01/28/17 11:53 BP 136/57 L 01/28/17 11:53 Pulse Ox 93 L 01/28/17 11:53 Weight - most recent: 92.3 kg I&O - last 24 hours: Intake & Output 01/27/17 01/28/17 01/28/17 22:59 06:59 14:59 Intake Total 1020 720 300 Output Total 1600 1000 Balance -580 -280 300 Lab Results last 24 hrs: Laboratory Results - last 24 hr 01/28/17 01/28/17 Range/Units 04:25 04:25 WBC 18.27 H (4.0-11.0) K/uL RBC 4.27 L (4.30-5.90) M/uL Hgb 12.9 (12.0-16.0) g/dL Hct 40.5 (36.0-46.0) % MCV 94.8 (80.0-98.0) fL MCH 30.2 (27.0-32.0) pg MCHC 31.9 (31.0-37.0) g/dL RDW Std Deviation 46.6 (28.0-62.0) fl RDW Coeff of Jessika 13 (11.0-15.0) % Plt Count 299 (150-400) K/uL MPV 10.30 (7.40-12.00) fL Add Manual Diff YES Neutrophils % (Manual) 89 H (48.0-80.0) % Band Neutrophils % 3 % Lymphocytes % (Manual) 8 L (16.0-40.0) % Nucleated RBC % 0.0 /100WBC Absolute Seg Neuts 16.3 Band Neutrophils # 0.5 Lymphocytes # (Manual) 1.5 Nucleated RBCs # 0 K/uL Sodium 140 (136-146) mmol/L Potassium 3.7 (3.5-5.1) mmol/L Chloride 106 (98-110) mmol/L Carbon Dioxide 24 (21-31) mmol/L BUN 16 (6.0-23.0) mg/dL Creatinine 0.9 (0.6-1.5) mg/dL Est Cr Clr Drug Dosing 56.82 mL/min Estimated GFR (MDRD) > 60.0 ml/min Glucose 192 H (60-110) mg/dL Calcium 9.5 (8.8-10.8) mg/dL Med Orders - Current: Current Medications Albuterol/Ipratropium (Duoneb 3.0-0.5 Mg/3 Ml) 3 ml NEB Q4HRRT [facility] Last Admin: 01/28/17 10:01 Dose: 3 ml Alprazolam (Xanax) 0.25 mg PO TID PRN PRN Reason: Anxiety Benzonatate (Tessalon Perles) 100 mg PO TID PRN PRN Reason: Cough Last Admin: 01/27/17 17:17 Dose: 100 mg Cholecalciferol (Vitamin D3) 1,000 units PO DAILY [facility] Last Admin: 01/28/17 08:53 Dose: 1,000 units Clonidine HCl (Catapres) 0.1 mg PO Q12HR PRN PRN Reason: HTN, SBP>180/DBP 100 Enoxaparin Sodium (Lovenox) 40 mg SUBCUT Q24H [facility] Last Admin: 01/28/17 09:50 Dose: 40 mg Fluticasone Propionate (Flovent Hfa 220 Mcg) 0 gm INH BIDRT [facility] Last Admin: 01/28/17 06:22 Dose: 2 puff Guaifenesin (Robitussin) 200 mg PO Q4H PRN PRN Reason: Cough Last Admin: 01/28/17 08:53 Dose: 200 mg Hydrochlorothiazide (Hydrochlorothiazide) 12.5 mg PO DAILY [facility] Last Admin: 01/28/17 08:53 Dose: 12.5 mg Levofloxacin/Dextrose 500 mg/ (Premix) 100 mls @ 100 mls/hr IV Q24H [facility] Last Admin: 01/28/17 05:07 Dose: 100 mls/hr Piperacillin Sod/Tazobactam (Sod 3.375 gm/ Sodium Chloride) 50 mls @ 100 mls/ hr IV Q6H [facility] Last Admin: 01/28/17 09:50 Dose: 100 mls/hr Vancomycin HCl 1 gm/ Sodium (Chloride) 250 mls @ 166.667 mls/hr IV Q12H [facility] Last Admin: 01/28/17 11:10 Dose: 166.667 mls/hr Isosorbide Mononitrate (Imdur) 30 mg PO DAILY [facility] Last Admin: 01/28/17 08:53 Dose: 30 mg Levothyroxine Sodium (Levothyroxine) 75 mcg PO ACBREAKFAST [facility] Last Admin: 01/28/17 06:48 Dose: 75 mcg Lisinopril (Prinivil) 20 mg PO DAILY [facility] Last Admin: 01/28/17 08:52 Dose: 20 mg Lorazepam (Ativan) 1 mg PO Q6H PRN PRN Reason: Anxiety Prednisone (Prednisone) 40 mg PO WITHBREAKFAST [facility] Sodium Chloride (Saline Flush) 10 ml FLUSH ASDIRECTED PRN PRN Reason: Keep Vein Open Sodium Chloride (Saline Flush) 2.5 ml FLUSH ASDIRECTED PRN PRN Reason: Keep Vein Open Vancomycin HCl (Pharmacy To Dose - Vancomycin) 1 dose .XX ASDIRECTED [facility] Discontinued Medications Albuterol/Ipratropium (Duoneb 3.0-0.5 Mg/3 Ml) Confirm Administered Dose 3 ml .ROUTE .STK-MED ONE Stop: 01/27/17 03:24 Last Admin: 01/27/17 03:37 Dose: Not Given Albuterol/Ipratropium (Duoneb 3.0-0.5 Mg/3 Ml) 3 ml NEB ONETIME ONE Stop: 01/27/17 03:31 Last Admin: 01/27/17 03:36 Dose: 3 ml Albuterol/Ipratropium (Duoneb 3.0-0.5 Mg/3 Ml) 3 ml NEB Q6HRRT [facility] Last Admin: 01/27/17 05:45 Dose: 3 ml Sodium Chloride (Normal Saline) 1,000 mls @ 999 mls/hr IV STAT ONE Stop: 01/27/17 04:31 Last Admin: 01/27/17 03:36 Dose: 999 mls/hr Piperacillin Sod/Tazobactam (Sod 3.375 gm/ Sodium Chloride) 50 mls @ 100 mls/ hr IV ONETIME ONE Stop: 01/27/17 04:36 Last Admin: 01/27/17 04:15 Dose: 100 mls/hr Vancomycin HCl 2,000 mg/ (Sodium Chloride) 500 mls @ 250 mls/hr IV ONETIME ONE Stop: 01/27/17 13:59 Last Admin: 01/27/17 12:02 Dose: 250 mls/hr Methylprednisolone Sodium Succinate (Solu-Medrol) 125 mg IVPUSH ONETIME ONE Stop: 01/27/17 03:31 Last Admin: 01/27/17 03:37 Dose: 125 mg Methylprednisolone Sodium Succinate (Solu-Medrol) 125 mg IVPUSH Q6H [facility] Last Admin: 01/28/17 08:53 Dose: 125 mg Sodium Chloride (Saline Flush) 10 ml FLUSH ASDIRECTED PRN PRN Reason: Keep Vein Open Last Admin: 01/27/17 03:36 Dose: 10 ml Sodium Chloride (Saline Flush) 2.5 ml FLUSH ASDIRECTED PRN PRN Reason: Keep Vein Open Last Admin: 01/27/17 03:36 Dose: 2.5 ml - Exam General: alert, oriented HEENT: EOMI Lungs: Clear to auscultation, Normal respiratory effort Cardiovascular: Regular Rate, Regular Rhythm - Problem List & Annotations (1) Hyperglycemia SNOMED Code(s): 14393794 Code(s): R73.9 - HYPERGLYCEMIA, UNSPECIFIED Status: Acute Current Visit: Yes (2) Medication side effect SNOMED Code(s): 87231124 Code(s): T88.7XXA - UNSP ADVERSE EFFECT OF DRUG OR MEDICAMENT, INIT ENCNTR Status: Acute Current Visit: Yes (3) Hypoxia SNOMED Code(s): 341576416, 463351940 Code(s): R09.02 - HYPOXEMIA Status: Acute Current Visit: Yes (4) Recurrent bronchospasm SNOMED Code(s): 0445752 Code(s): J98.09 - OTHER DISEASES OF BRONCHUS, NOT ELSEWHERE CLASSIFIED Status: Acute Current Visit: Yes (5) HTN (hypertension) SNOMED Code(s): 84549763 Code(s): I10 - ESSENTIAL (PRIMARY) HYPERTENSION Status: Chronic Current Visit: Yes Qualifiers: Hypertension type: essential hypertension Qualified Code(s): I10 - Essential (primary) hypertension (6) Hypothyroid SNOMED Code(s): 77016247 Code(s): E03.9 - HYPOTHYROIDISM, UNSPECIFIED Status: Chronic Current Visit: Yes Qualifiers: Hypothyroidism type: unspecified Qualified Code(s): E03.9 - Hypothyroidism , unspecified (7) Rheumatoid arthritis SNOMED Code(s): 50620459 Code(s): M06.9 - RHEUMATOID ARTHRITIS, UNSPECIFIED Status: Chronic Current Visit: Yes (8) Acute bronchitis SNOMED Code(s): 61126801 Code(s): J20.9 - ACUTE BRONCHITIS, UNSPECIFIED Status: Acute Current Visit: No Qualifiers: Bronchitis organism: unspecified organism Qualified Code(s): J20.9 - Acute bronchitis, unspecified - Problem List Review Problem List Initiated/Reviewed/Updated: Yes - My Orders Last 24 Hours: My Active Orders 01/27/17 23:12 guaiFENesin [Robitussin] 200 mg PO Q4H PRN 01/29/17 08:00 predniSONE 40 mg PO WITHBREAKFAST - Plan Plan:: This 66 year old female admitted with acute bronchospams/bronchitis and hypoxia 1. Acute bronchospasm: No hx of airway disease, maybe reactive airway. Will treat with Duonebs, Solumedrol, and oxygen. Wean oxygen as able to keep sats > 90. 2. Leukocytosis: May be due to steroid use in the last couple weeks, but will cover with Levaquin, Vancomycin and Zosyn. High risk for infections due to Enbrel and steroid useage. Covering for underlying PNA. 3. HTN: Restart home medications, Lisinopril/HCTZ and Imdur. 4. Hypothyroidism: Continue Levothyrozine 5. RA: Hold Ebrel. She has been afebrile. VTE prophylaxis: Lovenox. Dispo: Pending improvement. 01/28/2017 Her elevated WBC and serum glucose may be in part related to the solumedrol. Will discontinue and start prednisone. anticipate discharge in 24 to 48 hours. Denis Ovalles MD
[2017-01-29] MEDS: Albuterol/Ipratropium 3.0-0.5 MG/3 ML Neb Soln NEB SCH ×6 (03:40→21:05)
[2017-01-29] MEDS: Piperacillin/Tazobactam 3.375 GM in Sodium Chloride 0.9% 50 ML IV SCH ×4 (03:59→21:35)
[2017-01-29] MEDS: guaiFENesin 100 MG/5 ML Soln 10 ML UD Cup PO PRN ×2 (04:02→12:30)
[2017-01-29] MEDS: Levofloxacin/Dextrose 5%-Water 500 MG in Premix Bag 1 BAG IV SCH (04:55)
[2017-01-29 05:59] LABS: CHLORIDE,CL 107 mmol/L (98-110); SODIUM,NA 143 mmol/L (136-146)
[2017-01-29] MEDS: Fluticasone Propionate 220 MCG/Puff 12 GM Inhaler INH SCH ×2 (06:46→21:06)
[2017-01-29] MEDS: Levothyroxine 75 MCG Tab PO SCH (06:54)
[2017-01-29] MEDS: predniSONE 20 MG Tab PO SCH (08:05)
[2017-01-29] MEDS: Isosorbide Mononitrate 30 MG Tab.ER PO SCH (08:06)
[2017-01-29] MEDS: Hydrochlorothiazide 12.5 MG Cap PO SCH (08:06)
[2017-01-29] MEDS: Cholecalciferol (Vitamin D3) 1,000 Unit Tab PO SCH (08:06)
[2017-01-29] MEDS: Lisinopril 10 MG Tab PO SCH (08:08)
[2017-01-29] MEDS: Enoxaparin 40 MG/0.4 ML Syringe SUBCUT SCH (09:19)
--- NOTE | 2017-01-29 11:27 | PCM.PN ---
- General Info Date of Service: 01/29/17 Subjective Update: her breathing feels better but she complains of generalized weakness. - Patient Data Vitals - most recent: Last Vital Signs Temp 97.3 F 01/29/17 08:00 Pulse 88 01/29/17 08:00 Resp 20 01/29/17 08:00 BP 172/72 H 01/29/17 08:08 Pulse Ox 91 L 01/29/17 08:00 Weight - most recent: 92.3 kg I&O - last 24 hours: Intake & Output 01/28/17 01/29/17 01/29/17 22:59 06:59 14:59 Intake Total 720 900 Output Total 950 950 Balance -230 -50 Lab Results last 24 hrs: Laboratory Results - last 24 hr 01/28/17 01/29/17 01/29/17 Range/Units 23:33 05:01 05:01 WBC 26.51 H (4.0-11.0) K/uL RBC 4.25 L (4.30-5.90) M/uL Hgb 12.7 (12.0-16.0) g/dL Hct 40.3 (36.0-46.0) % MCV 94.8 (80.0-98.0) fL MCH 29.9 (27.0-32.0) pg MCHC 31.5 (31.0-37.0) g/dL RDW Std Deviation 47.0 (28.0-62.0) fl RDW Coeff of Jessika 14 (11.0-15.0) % Plt Count 305 (150-400) K/uL MPV 10.30 (7.40-12.00) fL Add Manual Diff YES Neutrophils % (Manual) 77 (48.0-80.0) % Band Neutrophils % 4 % Lymphocytes % (Manual) 10 L (16.0-40.0) % Monocytes % (Manual) 9 (0.0-15.0) % Nucleated RBC % 0.0 /100WBC Absolute Seg Neuts 20.4 Band Neutrophils # 1.1 Lymphocytes # (Manual) 2.7 Monocytes # (Manual) 2.4 Nucleated RBCs # 0 K/uL Sodium 143 (136-146) mmol/L Potassium 3.5 (3.5-5.1) mmol/L Chloride 107 (98-110) mmol/L Carbon Dioxide 25 (21-31) mmol/L BUN 26 H (6.0-23.0) mg/dL Creatinine 0.8 (0.6-1.5) mg/dL Est Cr Clr Drug Dosing 63.93 mL/min Estimated GFR (MDRD) > 60.0 ml/min Glucose 123 H (60-110) mg/dL Calcium 9.5 (8.8-10.8) mg/dL Vancomycin Trough 11.3 (5-15) ug/mL Med Orders - Current: Current Medications Albuterol/Ipratropium (Duoneb 3.0-0.5 Mg/3 Ml) 3 ml NEB Q4HRRT [facility] Last Admin: 01/29/17 10:08 Dose: 3 ml Alprazolam (Xanax) 0.25 mg PO TID PRN PRN Reason: Anxiety Benzonatate (Tessalon Perles) 100 mg PO TID PRN PRN Reason: Cough Last Admin: 01/27/17 17:17 Dose: 100 mg Cholecalciferol (Vitamin D3) 1,000 units PO DAILY [facility] Last Admin: 01/29/17 08:06 Dose: 1,000 units Clonidine HCl (Catapres) 0.1 mg PO Q12HR PRN PRN Reason: HTN, SBP>180/DBP 100 Enoxaparin Sodium (Lovenox) 40 mg SUBCUT Q24H [facility] Last Admin: 01/29/17 09:19 Dose: 40 mg Fluticasone Propionate (Flovent Hfa 220 Mcg) 0 gm INH BIDRT [facility] Last Admin: 01/29/17 06:46 Dose: 2 puff Guaifenesin (Robitussin) 200 mg PO Q4H PRN PRN Reason: Cough Last Admin: 01/29/17 04:02 Dose: 200 mg Hydrochlorothiazide (Hydrochlorothiazide) 12.5 mg PO DAILY [facility] Last Admin: 01/29/17 08:06 Dose: 12.5 mg Levofloxacin/Dextrose 500 mg/ (Premix) 100 mls @ 100 mls/hr IV Q24H [facility] Last Admin: 01/29/17 04:55 Dose: 100 mls/hr Piperacillin Sod/Tazobactam (Sod 3.375 gm/ Sodium Chloride) 50 mls @ 100 mls/ hr IV Q6H [facility] Last Admin: 01/29/17 09:14 Dose: 100 mls/hr Vancomycin HCl 1.25 gm/ Sodium (Chloride) 250 mls @ 166.667 mls/hr IV Q12H [facility] Last Admin: 01/29/17 01:31 Dose: 166.667 mls/hr Isosorbide Mononitrate (Imdur) 30 mg PO DAILY [facility] Last Admin: 01/29/17 08:06 Dose: 30 mg Levothyroxine Sodium (Levothyroxine) 75 mcg PO ACBREAKFAST [facility] Last Admin: 01/29/17 06:54 Dose: 75 mcg Lisinopril (Prinivil) 20 mg PO DAILY [facility] Last Admin: 01/29/17 08:08 Dose: 20 mg Lorazepam (Ativan) 1 mg PO Q6H PRN PRN Reason: Anxiety Prednisone (Prednisone) 40 mg PO WITHBREAKFAST [facility] Last Admin: 01/29/17 08:05 Dose: 40 mg Sodium Chloride (Saline Flush) 10 ml FLUSH ASDIRECTED PRN PRN Reason: Keep Vein Open Sodium Chloride (Saline Flush) 2.5 ml FLUSH ASDIRECTED PRN PRN Reason: Keep Vein Open Vancomycin HCl (Pharmacy To Dose - Vancomycin) 1 dose .XX ASDIRECTED [facility] Discontinued Medications Albuterol/Ipratropium (Duoneb 3.0-0.5 Mg/3 Ml) Confirm Administered Dose 3 ml .ROUTE .STK-MED ONE Stop: 01/27/17 03:24 Last Admin: 01/27/17 03:37 Dose: Not Given Albuterol/Ipratropium (Duoneb 3.0-0.5 Mg/3 Ml) 3 ml NEB ONETIME ONE Stop: 01/27/17 03:31 Last Admin: 01/27/17 03:36 Dose: 3 ml Albuterol/Ipratropium (Duoneb 3.0-0.5 Mg/3 Ml) 3 ml NEB Q6HRRT [facility] Last Admin: 01/27/17 05:45 Dose: 3 ml Sodium Chloride (Normal Saline) 1,000 mls @ 999 mls/hr IV STAT ONE Stop: 01/27/17 04:31 Last Admin: 01/27/17 03:36 Dose: 999 mls/hr Piperacillin Sod/Tazobactam (Sod 3.375 gm/ Sodium Chloride) 50 mls @ 100 mls/ hr IV ONETIME ONE Stop: 01/27/17 04:36 Last Admin: 01/27/17 04:15 Dose: 100 mls/hr Vancomycin HCl 2,000 mg/ (Sodium Chloride) 500 mls @ 250 mls/hr IV ONETIME ONE Stop: 01/27/17 13:59 Last Admin: 01/27/17 12:02 Dose: 250 mls/hr Vancomycin HCl 1 gm/ Sodium (Chloride) 250 mls @ 166.667 mls/hr IV Q12H [facility] Last Admin: 01/29/17 02:00 Dose: Not Given Methylprednisolone Sodium Succinate (Solu-Medrol) 125 mg IVPUSH ONETIME ONE Stop: 01/27/17 03:31 Last Admin: 01/27/17 03:37 Dose: 125 mg Methylprednisolone Sodium Succinate (Solu-Medrol) 125 mg IVPUSH Q6H [facility] Last Admin: 01/28/17 08:53 Dose: 125 mg Sodium Chloride (Saline Flush) 10 ml FLUSH ASDIRECTED PRN PRN Reason: Keep Vein Open Last Admin: 01/27/17 03:36 Dose: 10 ml Sodium Chloride (Saline Flush) 2.5 ml FLUSH ASDIRECTED PRN PRN Reason: Keep Vein Open Last Admin: 01/27/17 03:36 Dose: 2.5 ml - Exam General: alert, oriented Neck: no JVD Lungs: Clear to auscultation, Normal respiratory effort Cardiovascular: Regular Rate, Regular Rhythm - Problem List & Annotations (1) Hyperglycemia SNOMED Code(s): 41722507 Code(s): R73.9 - HYPERGLYCEMIA, UNSPECIFIED Status: Acute Current Visit: Yes (2) Medication side effect SNOMED Code(s): 88941090 Code(s): T88.7XXA - UNSP ADVERSE EFFECT OF DRUG OR MEDICAMENT, INIT ENCNTR Status: Acute Current Visit: Yes (3) Hypoxia SNOMED Code(s): 490141834, 229760055 Code(s): R09.02 - HYPOXEMIA Status: Acute Current Visit: Yes (4) Recurrent bronchospasm SNOMED Code(s): 3190395 Code(s): J98.09 - OTHER DISEASES OF BRONCHUS, NOT ELSEWHERE CLASSIFIED Status: Acute Current Visit: Yes (5) HTN (hypertension) SNOMED Code(s): 95581134 Code(s): I10 - ESSENTIAL (PRIMARY) HYPERTENSION Status: Chronic Current Visit: Yes Qualifiers: Hypertension type: essential hypertension Qualified Code(s): I10 - Essential (primary) hypertension (6) Hypothyroid SNOMED Code(s): 10927912 Code(s): E03.9 - HYPOTHYROIDISM, UNSPECIFIED Status: Chronic Current Visit: Yes Qualifiers: Hypothyroidism type: unspecified Qualified Code(s): E03.9 - Hypothyroidism , unspecified (7) Rheumatoid arthritis SNOMED Code(s): 64098512 Code(s): M06.9 - RHEUMATOID ARTHRITIS, UNSPECIFIED Status: Chronic Current Visit: Yes (8) Acute bronchitis SNOMED Code(s): 81631908 Code(s): J20.9 - ACUTE BRONCHITIS, UNSPECIFIED Status: Acute Current Visit: No Qualifiers: Bronchitis organism: unspecified organism Qualified Code(s): J20.9 - Acute bronchitis, unspecified - Problem List Review Problem List Initiated/Reviewed/Updated: Yes - My Orders Last 24 Hours: My Active Orders 01/29/17 01:00 Vancomycin 1.25 gm Sodium Chloride 0.9% [Normal Saline] 250 ml IV Q12H 01/29/17 08:00 predniSONE 40 mg PO WITHBREAKFAST - Plan Plan:: This 66 year old female admitted with acute bronchospams/bronchitis and hypoxia 1. Acute bronchospasm: No hx of airway disease, maybe reactive airway. Will treat with Duonebs, Solumedrol, and oxygen. Wean oxygen as able to keep sats > 90. 2. Leukocytosis: May be due to steroid use in the last couple weeks, but will cover with Levaquin, Vancomycin and Zosyn. High risk for infections due to Enbrel and steroid useage. Covering for underlying PNA. 3. HTN: Restart home medications, Lisinopril/HCTZ and Imdur. 4. Hypothyroidism: Continue Levothyrozine 5. RA: Hold Ebrel. She has been afebrile. VTE prophylaxis: Lovenox. Dispo: Pending improvement. 01/28/2017 Her elevated WBC and serum glucose may be in part related to the solumedrol. Will discontinue and start prednisone. anticipate discharge in 24 to 48 hours. Denis Ovalles MD 01/29/2017 high WBC noted; this could still be steroid related. continue present care for now Denis Ovalles MD
[2017-01-30] MEDS: Albuterol/Ipratropium 3.0-0.5 MG/3 ML Neb Soln NEB SCH ×3 (01:02→10:01)
[2017-01-30] MEDS: Piperacillin/Tazobactam 3.375 GM in Sodium Chloride 0.9% 50 ML IV SCH ×2 (03:58→09:11)
[2017-01-30] MEDS: Levofloxacin/Dextrose 5%-Water 500 MG in Premix Bag 1 BAG IV SCH (04:36)
[2017-01-30 06:04] LABS: CHLORIDE,CL 106 mmol/L (98-110); SODIUM,NA 142 mmol/L (136-146)
[2017-01-30] MEDS: Fluticasone Propionate 220 MCG/Puff 12 GM Inhaler INH SCH (06:11)
[2017-01-30] MEDS: Levothyroxine 75 MCG Tab PO SCH (06:39)
[2017-01-30] MEDS ORDERED: Simethicone 80 MG Tab.Chew PO PRN (06:44)
[2017-01-30] MEDS ORDERED: Aluminum Hydroxide/Magnesium Hydroxide/Simethicone Susp 30 ML Cup PO PRN (06:46)
[2017-01-30] MEDS ORDERED: Pantoprazole 40 MG Tab.CR PO SCH (07:00)
[2017-01-30] MEDS: Pantoprazole 40 MG Tab.CR PO SCH ×2 (07:02→09:10)
[2017-01-30] MEDS: predniSONE 20 MG Tab PO SCH (08:01)
[2017-01-30] MEDS: Lisinopril 10 MG Tab PO SCH (08:01)
[2017-01-30] MEDS: Hydrochlorothiazide 12.5 MG Cap PO SCH (08:02)
[2017-01-30] MEDS: Isosorbide Mononitrate 30 MG Tab.ER PO SCH (08:02)
[2017-01-30] MEDS: Cholecalciferol (Vitamin D3) 1,000 Unit Tab PO SCH (08:02)
[2017-01-30] MEDS: Enoxaparin 40 MG/0.4 ML Syringe SUBCUT SCH (09:16)
--- NOTE | 2017-01-30 11:56 | PCM.DCSUM1 ---
Discharge Summary - Hospital Course Brief History: she was admitted with bronchitis with severe bronchospasm with failed outpatient management. - Discharge Data Discharge Date: 01/30/17 Discharge Disposition: Home, Self-Care 01 Condition: Good - Discharge Diagnosis/Problem(s) (1) Hyperglycemia SNOMED Code(s): 24687140 ICD Code: R73.9 - HYPERGLYCEMIA, UNSPECIFIED Status: Acute Current Visit : Yes (2) Medication side effect SNOMED Code(s): 61853011 ICD Code: T88.7XXA - UNSP ADVERSE EFFECT OF DRUG OR MEDICAMENT, INIT ENCNTR Status: Acute Current Visit: Yes (3) Hypoxia SNOMED Code(s): 432293096, 153176297 ICD Code: R09.02 - HYPOXEMIA Status: Acute Current Visit: Yes (4) Recurrent bronchospasm SNOMED Code(s): 8682089 ICD Code: J98.09 - OTHER DISEASES OF BRONCHUS, NOT ELSEWHERE CLASSIFIED Status: Acute Current Visit: Yes (5) HTN (hypertension) SNOMED Code(s): 36145185 ICD Code: I10 - ESSENTIAL (PRIMARY) HYPERTENSION Status: Chronic Current Visit: Yes Qualifiers: Hypertension type: essential hypertension Qualified Code(s): I10 - Essential (primary) hypertension (6) Hypothyroid SNOMED Code(s): 55219839 ICD Code: E03.9 - HYPOTHYROIDISM, UNSPECIFIED Status: Chronic Current Visit: Yes Qualifiers: Hypothyroidism type: unspecified Qualified Code(s): E03.9 - Hypothyroidism , unspecified (7) Rheumatoid arthritis SNOMED Code(s): 01548302 ICD Code: M06.9 - RHEUMATOID ARTHRITIS, UNSPECIFIED Status: Chronic Current Visit: Yes (8) Acute bronchitis SNOMED Code(s): 36851539 ICD Code: J20.9 - ACUTE BRONCHITIS, UNSPECIFIED Status: Acute Current Visit: No Qualifiers: Bronchitis organism: unspecified organism Qualified Code(s): J20.9 - Acute bronchitis, unspecified - Patient Summary/Data Hospital Course: Because of the severity of her symptoms and the failed outpatient management, she was started on broad spectrum antibiotics, systemic steroids and nebulizers. She improved and her lungs are CTA at discharge. She developed worsening hypertension thought secondary to steroids. She will be prescribed clonidine prn for HTN to take at home. She also had dyspepsia, hyperglycemia, and prolonged leukocytosis thought secondary to steroids. These are all improving at discharge. Denis Ovalles MD - Discharge Plan Prescriptions/Med Rec: Pantoprazole [ProTONIX] 40 mg PO DAILY #7 tab.cr Prednisone [IJD: predniSONE] 20 mg PO WITHBREAKFAST #8 tablet cloNIDine [Catapres] 0.1 mg PO Q8H PRN #8 tablet PRN Reason: Other Home Medications: Home Meds ALPRAZolam [Xanax] 0.25 mg PO ASDIRECTED PRN 01/14/17 [History] Isosorbide Mononitrate [Isosorbide Mononitrate ER] 30 mg PO DAILY 01/14/17 [ History] Levothyroxine [Synthroid] 75 mcg PO ACBREAKFAST 01/14/17 [History] Albuterol Sulfate [Proair Respiclick] 2 puff IH Q6HR 01/27/17 [History] Cholecalciferol (Vitamin D3) [D3-2000] 1,000 unit PO DAILY 01/27/17 [History] Etanercept [Enbrel] 50 mg SQ WEEKLY 01/27/17 [History] Fluticasone Propionate [Flovent HFA 220 mcg] 2 puff INH BID 01/27/17 [History] Lisinopril/Hydrochlorothiazide [Lisinopril-Hctz 20-12.5 mg Tab] 1 each PO DAILY 01/27/17 [History] Pantoprazole [ProTONIX] 40 mg PO DAILY #7 tab.cr 01/30/17 [Rx] Prednisone [IJD: predniSONE] 20 mg PO WITHBREAKFAST #8 tablet 01/30/17 [Rx] cloNIDine [Catapres] 0.1 mg PO Q8H PRN #8 tablet 01/30/17 [Rx] Forms: ED Department Discharge Referrals: PCP,None [Primary Care Provider] - - Patient Data Vitals - Most Recent: Last Vital Signs Temp 96.4 F 01/30/17 07:46 Pulse 75 01/30/17 07:46 Resp 20 01/30/17 07:46 BP 147/68 H 01/30/17 08:02 Pulse Ox 93 L 01/30/17 07:46 Weight - Most Recent: 92.3 kg I&O - Last 24 hours: Intake & Output 01/29/17 01/30/17 01/30/17 22:59 06:59 14:59 Intake Total 700 700 50 Output Total 980 680 Balance -280 20 50 Lab Results - Last 24 hrs: Laboratory Results - last 24 hr 01/30/17 01/30/17 Range/Units 05:18 05:18 WBC 20.71 H (4.0-11.0) K/uL RBC 4.12 L (4.30-5.90) M/uL Hgb 12.4 (12.0-16.0) g/dL Hct 38.9 (36.0-46.0) % MCV 94.4 (80.0-98.0) fL MCH 30.1 (27.0-32.0) pg MCHC 31.9 (31.0-37.0) g/dL RDW Std Deviation 46.9 (28.0-62.0) fl RDW Coeff of Jessika 14 (11.0-15.0) % Plt Count 238 (150-400) K/uL MPV 10.20 (7.40-12.00) fL Add Manual Diff YES Neutrophils % (Manual) 78 (48.0-80.0) % Band Neutrophils % 1 % Lymphocytes % (Manual) 16 (16.0-40.0) % Monocytes % (Manual) 5 (0.0-15.0) % Nucleated RBC % 0.0 /100WBC Absolute Seg Neuts 16.2 Band Neutrophils # 0.2 Lymphocytes # (Manual) 3.3 Monocytes # (Manual) 1.0 Nucleated RBCs # 0 K/uL Sodium 142 (136-146) mmol/L Potassium 3.4 L (3.5-5.1) mmol/L Chloride 106 (98-110) mmol/L Carbon Dioxide 26 (21-31) mmol/L BUN 20 (6.0-23.0) mg/dL Creatinine 0.8 (0.6-1.5) mg/dL Est Cr Clr Drug Dosing 63.93 mL/min Estimated GFR (MDRD) > 60.0 ml/min Glucose 109 (60-110) mg/dL Calcium 8.9 (8.8-10.8) mg/dL Med Orders - Current: Current Medications Al Hydroxide/Mg Hydroxide (Mag-Al Plus) 15 ml PO Q3H PRN PRN Reason: Indigestion Last Admin: 01/30/17 06:56 Dose: 15 ml Albuterol/Ipratropium (Duoneb 3.0-0.5 Mg/3 Ml) 3 ml NEB Q4HRRT [facility] Last Admin: 01/30/17 10:01 Dose: 3 ml Alprazolam (Xanax) 0.25 mg PO TID PRN PRN Reason: Anxiety Benzonatate (Tessalon Perles) 100 mg PO TID PRN PRN Reason: Cough Last Admin: 01/27/17 17:17 Dose: 100 mg Cholecalciferol (Vitamin D3) 1,000 units PO DAILY [facility] Last Admin: 01/30/17 08:02 Dose: 1,000 units Clonidine HCl (Catapres) 0.1 mg PO Q12HR PRN PRN Reason: HTN, SBP>180/DBP 100 Last Admin: 01/30/17 02:02 Dose: 0.1 mg Enoxaparin Sodium (Lovenox) 40 mg SUBCUT Q24H [facility] Last Admin: 01/30/17 09:16 Dose: 40 mg Fluticasone Propionate (Flovent Hfa 220 Mcg) 0 gm INH BIDRT [facility] Last Admin: 01/30/17 06:11 Dose: Not Given Guaifenesin (Robitussin) 200 mg PO Q4H PRN PRN Reason: Cough Last Admin: 01/29/17 12:30 Dose: 200 mg Hydrochlorothiazide (Hydrochlorothiazide) 12.5 mg PO DAILY [facility] Last Admin: 01/30/17 08:02 Dose: 12.5 mg Levofloxacin/Dextrose 500 mg/ (Premix) 100 mls @ 100 mls/hr IV Q24H [facility] Last Admin: 01/30/17 04:36 Dose: 100 mls/hr Piperacillin Sod/Tazobactam (Sod 3.375 gm/ Sodium Chloride) 50 mls @ 100 mls/ hr IV Q6H [facility] Last Admin: 01/30/17 09:11 Dose: 100 mls/hr Vancomycin HCl 1.25 gm/ Sodium (Chloride) 250 mls @ 166.667 mls/hr IV Q12H [facility] Last Admin: 01/30/17 01:02 Dose: 166.667 mls/hr Isosorbide Mononitrate (Imdur) 30 mg PO DAILY [facility] Last Admin: 01/30/17 08:02 Dose: 30 mg Levothyroxine Sodium (Levothyroxine) 75 mcg PO ACBREAKFAST [facility] Last Admin: 01/30/17 06:39 Dose: 75 mcg Lisinopril (Prinivil) 20 mg PO DAILY [facility] Last Admin: 01/30/17 08:01 Dose: 20 mg Lorazepam (Ativan) 1 mg PO Q6H PRN PRN Reason: Anxiety Pantoprazole Sodium (Protonix) 40 mg PO DAILY [facility] Last Admin: 01/30/17 09:10 Dose: Not Given Potassium Chloride (Klor-Con M20) 40 meq PO ONETIME ONE Stop: 01/30/17 11:52 Prednisone (Prednisone) 40 mg PO WITHBREAKFAST [facility] Last Admin: 01/30/17 08:01 Dose: 40 mg Simethicone (Simethicone) 80 mg PO Q6H PRN PRN Reason: gas pain Sodium Chloride (Saline Flush) 10 ml FLUSH ASDIRECTED PRN PRN Reason: Keep Vein Open Sodium Chloride (Saline Flush) 2.5 ml FLUSH ASDIRECTED PRN PRN Reason: Keep Vein Open Vancomycin HCl (Pharmacy To Dose - Vancomycin) 1 dose .XX ASDIRECTED [facility] Discontinued Medications Albuterol/Ipratropium (Duoneb 3.0-0.5 Mg/3 Ml) Confirm Administered Dose 3 ml .ROUTE .STK-MED ONE Stop: 01/27/17 03:24 Last Admin: 01/27/17 03:37 Dose: Not Given Albuterol/Ipratropium (Duoneb 3.0-0.5 Mg/3 Ml) 3 ml NEB ONETIME ONE Stop: 01/27/17 03:31 Last Admin: 01/27/17 03:36 Dose: 3 ml Albuterol/Ipratropium (Duoneb 3.0-0.5 Mg/3 Ml) 3 ml NEB Q6HRRT [facility] Last Admin: 01/27/17 05:45 Dose: 3 ml Sodium Chloride (Normal Saline) 1,000 mls @ 999 mls/hr IV STAT ONE Stop: 01/27/17 04:31 Last Admin: 01/27/17 03:36 Dose: 999 mls/hr Piperacillin Sod/Tazobactam (Sod 3.375 gm/ Sodium Chloride) 50 mls @ 100 mls/ hr IV ONETIME ONE Stop: 01/27/17 04:36 Last Admin: 01/27/17 04:15 Dose: 100 mls/hr Vancomycin HCl 2,000 mg/ (Sodium Chloride) 500 mls @ 250 mls/hr IV ONETIME ONE Stop: 01/27/17 13:59 Last Admin: 01/27/17 12:02 Dose: 250 mls/hr Vancomycin HCl 1 gm/ Sodium (Chloride) 250 mls @ 166.667 mls/hr IV Q12H [facility] Last Admin: 01/29/17 02:00 Dose: Not Given Methylprednisolone Sodium Succinate (Solu-Medrol) 125 mg IVPUSH ONETIME ONE Stop: 01/27/17 03:31 Last Admin: 01/27/17 03:37 Dose: 125 mg Methylprednisolone Sodium Succinate (Solu-Medrol) 125 mg IVPUSH Q6H [facility] Last Admin: 01/28/17 08:53 Dose: 125 mg Pantoprazole Sodium (Protonix) 40 mg PO DAILY [facility] Sodium Chloride (Saline Flush) 10 ml FLUSH ASDIRECTED PRN PRN Reason: Keep Vein Open Last Admin: 01/27/17 03:36 Dose: 10 ml Sodium Chloride (Saline Flush) 2.5 ml FLUSH ASDIRECTED PRN PRN Reason: Keep Vein Open Last Admin: 01/27/17 03:36 Dose: 2.5 ml *Q Meaningful Use (DIS) - VTE *Q VTE Criteria *Q: - Stroke *Q Stroke Criteria *Q: - AMI *Q AMI Criteria *Q:
[2017-01-30 12:01] VITALS: BP 158/75
[2017-01-30] MEDS ORDERED: Potassium Chloride 20 MEQ Tab.ER PO ONE (12:05)
== END 2017-01-30 13:50 | disposition home or self-care (01) | DRG 144 ==
LOC: MW.ED 03:20 → MW.MS 04:07
PROVIDERS: ADMIT Family Medicine; ATTEND Family Medicine
DX: J20.9 Acute bronchitis, unspecified (principal); R73.9 Hyperglycemia, unspecified; R09.02 Hypoxemia; J98.09 Other diseases of bronchus, not elsewhere classified; I10 Essential (primary) hypertension; E03.9 Hypothyroidism, unspecified; M06.9 Rheumatoid arthritis, unspecified; D72.829 Elevated white blood cell count, unspecified; T50.995A Adverse effect of other drugs, medicaments and biological substances, initial encounter; R10.13 Epigastric pain; F41.8 Other specified anxiety disorders; R53.1 Weakness; Z88.8 Allergy status to other drugs, medicaments and biological substances; Z79.899 Other long term (current) drug therapy
CPT/HCPCS: 36415; 71010; 71010-26; 80048; 80053; 80202; 83605; 84484; 85025; 86480; 93005; 94640; 96361; 96374; 96375; 99285; 99285-25; A9270-GY; J1650; J1956; J2543; J2930; J3370; J7040; J7050

== ENCOUNTER 2017-06-23 13:14 | Emergency (ER) | payer BC ==
--- NOTE | 2017-06-23 13:35 | EDM.PDOC ---
ED HPI GENERAL MEDICAL PROBLEM - General Chief Complaint: Respiratory Problem Stated Complaint: ASTHMA ATTACK Time Seen by Provider: 06/23/17 13:35 Source of Information: Reports: Patient History Limitations: Reports: No Limitations - History of Present Illness INITIAL COMMENTS - FREE TEXT/NARRATIVE: HISTORY AND PHYSICAL: []66-year-old female presenting with increasing shortness of breath Patient states she has history of asthma she was just diagnosed this year History of Present Illness: [Became short of breath her meds at home are not working Currently is on Symbicort twice daily, rescue inhaler albuterol, and nebulizer machine with Combivent] Review of Systems: As per history of present illness and below otherwise all systems reviewed and negative. Past medical history: As per history of present illness and as reviewed below otherwise noncontributory. Surgical history: As per history of present illness and as reviewed below otherwise noncontributory. Social history: No reported history of drug or alcohol abuse. Family history: As per history of present illness and as reviewed below otherwise noncontributory. Physical exam: Alert and oriented female answering questions with full sentences. " Breathy " sounding. HEENT: Atraumatic, normocehpalic, pupils reactive, negative for conjunctival pallor or scleral icterus, mucous membranes moist, throat clear, neck supple, nontender, trachea midline. Lungs: Clear to auscultation, breath sounds equal bilaterally, chest non tender. Heart: S1S2, regular, negative for clicks, rubs, or JVD. Abdomen: Soft, nondistended, nontender. Negative for masses or hepatossplenmegaly. Negative for costovertebral tenderness. Pelvis: Stable nontender. Genitourinary: Deferred. Rectal: Deferred Extremities: Atraumatic, negative for cords or calf pain. Neurovascular unremarkable. Neuro: Awake, alert, oriented. Cranial nerves II through XII unremarkable. Cerebellum unremarkable. Motor and sensory unremarkable throughout. Exam nonfocal. Diagnostics: [CBC CMP EKG chest x-ray] Therapeutics: []Solu-Medrol 125mg DuoNeb Impression: [Exacerbation of asthma] Plan: [Discharge to home Medrol Dosepak Follow-up with your primary care provider in 2 days ] Definitive disposition and diagnosis as appropriate pending reevaluation and review of above. chest Pain Score (Numeric/FACES): 8 - Related Data Allergies Allergy/AdvReac Type Severity Reaction Status Date / Time codeine Allergy Abdominal Verified 06/23/17 13:21 Pain morphine Allergy Abdominal Verified 06/23/17 13:21 Pain Sulfa (Sulfonamide Allergy Rash Verified 06/23/17 13:21 Antibiotics) Home Meds: Home Meds ALPRAZolam [Xanax] 0.25 mg PO ASDIRECTED PRN 01/14/17 [History] Isosorbide Mononitrate [Isosorbide Mononitrate ER] 30 mg PO DAILY 01/14/17 [ History] Levothyroxine [Synthroid] 75 mcg PO ACBREAKFAST 01/14/17 [History] Albuterol Sulfate [Proair Respiclick] 2 puff IH Q6HR 01/27/17 [History] Cholecalciferol (Vitamin D3) [D3-2000] 1,000 unit PO DAILY 01/27/17 [History] Etanercept [Enbrel] 50 mg SQ WEEKLY 01/27/17 [History] Fluticasone Propionate [Flovent HFA 220 mcg] 2 puff INH BID 01/27/17 [History] Lisinopril/Hydrochlorothiazide [Lisinopril-Hctz 20-12.5 mg Tab] 1 each PO DAILY 01/27/17 [History] Pantoprazole [ProTONIX] 40 mg PO DAILY #7 tab.cr 01/30/17 [Rx] Prednisone [IJD: predniSONE] 20 mg PO WITHBREAKFAST #8 tablet 01/30/17 [Rx] cloNIDine [Catapres] 0.1 mg PO Q8H PRN #8 tablet 01/30/17 [Rx] methylPREDNISolone [Medrol] 4 mg PO ASDIRECTED #1 dosepk 06/23/17 [Rx] Past Medical History HEENT History: Reports: None Cardiovascular History: Reports: Hypertension. Denies: Blood Clots/VTE/DVT, CAD , Heart Failure, High Cholesterol, NE Respiratory History: Reports: Bronchitis, Recurrent Gastrointestinal History: Reports: None. Denies: GERD, GI Bleed Genitourinary History: Reports: None. Denies: Acute Renal Failure, Chronic Renal Insuffiency [employer] History: Reports: None Musculoskeletal History: Reports: RA Neurological History: Reports: None. Denies: CVA, TIA Psychiatric History: Reports: Anxiety, Depression Endocrine/Metabolic History: Reports: Hypothyroidism, Obesity/BMI 30+. Denies: Diabetes, Type II Hematologic History: Reports: None Immunologic History: Reports: None Oncologic (Cancer) History: Reports: None Dermatologic History: Reports: None - Infectious Disease History Infectious Disease History: Reports: None Social & Family History - Family History Family Medical History: Noncontributory Cardiac: Reports: NE - Tobacco Use Smoking Status *Q: Never Smoker Second Hand Smoke Exposure: No - Caffeine Use Caffeine Use: Reports: Coffee - Alcohol Use Days Per Week of Alcohol Use: 3 Number of Drinks Per Day: 1 Total Drinks Per Week: 3 - Recreational Drug Use Recreational Drug Use: No ED ROS GENERAL - Review of Systems Review Of Systems: ROS reveals no pertinent complaints other than HPI. ED EXAM, GENERAL - Physical Exam Exam: See Below (See dictation) Course - Vital Signs Last Recorded V/S: Last Vital Signs Temp 36.6 C 06/23/17 13:14 Pulse 82 06/23/17 14:19 Resp 14 06/23/17 14:19 BP 151/62 H 06/23/17 14:19 Pulse Ox 96 06/23/17 14:19 - Orders/Labs/Meds Orders: Active Orders 24 hr Category Date Time Status EKG Documentation Completion [RC] STAT Care 06/23/17 13:38 Active Oxygen Therapy, ED [RC] ASDIRECTED Care 06/23/17 13:38 Active RT Aerosol Therapy [RC] ASDIRECTED Care 06/23/17 13:38 Active Sodium Chloride 0.9% [Saline Flush] Med 06/23/17 13:38 Active 10 ml FLUSH ASDIRECTED PRN Sodium Chloride 0.9% [Saline Flush] Med 06/23/17 13:38 Active 2.5 ml FLUSH ASDIRECTED PRN Saline Lock Insert [OM.PC] Stat Oth 06/23/17 13:38 Ordered Medication Orders Sodium Chloride (Saline Flush) 10 ml FLUSH ASDIRECTED PRN PRN Reason: Keep Vein Open Last Admin: 06/23/17 14:12 Dose: 10 ml Sodium Chloride (Saline Flush) 2.5 ml FLUSH ASDIRECTED PRN PRN Reason: Keep Vein Open Last Admin: 06/23/17 14:12 Dose: 2.5 ml Labs: Laboratory Tests 06/23/17 06/23/17 06/23/17 Range/Units 13:45 13:45 13:45 WBC 11.45 H (4.0-11.0) K/uL RBC 4.31 (4.30-5.90) M/uL Hgb 12.8 (12.0-16.0) g/dL Hct 39.8 (36.0-46.0) % MCV 92.3 (80.0-98.0) fL MCH 29.7 (27.0-32.0) pg MCHC 32.2 (31.0-37.0) g/dL RDW Std Deviation 45.3 (28.0-62.0) fl RDW Coeff of Jessika 14 (11.0-15.0) % Plt Count 286 (150-400) K/uL MPV 10.10 (7.40-12.00) fL Neut % (Auto) 69.5 (48.0-80.0) % Lymph % (Auto) 16.1 (16.0-40.0) % [place] % (Auto) 8.1 (0.0-15.0) % Eos % (Auto) 5.9 (0.0-7.0) % Baso % (Auto) 0.4 (0.0-1.5) % Neut # (Auto) 8.0 H (1.4-5.7) K/uL Lymph # (Auto) 1.8 (0.6-2.4) K/uL [place] # (Auto) 0.9 H (0.0-0.8) K/uL Eos # (Auto) 0.7 (0.0-0.7) K/uL Baso # (Auto) 0.1 (0.0-0.1) K/uL Nucleated RBC % 0.0 /100WBC Nucleated RBCs # 0 K/uL Sodium 143 (136-146) mmol/L Potassium 3.7 (3.5-5.1) mmol/L Chloride 107 (98-110) mmol/L Carbon Dioxide 25 (21-31) mmol/L BUN 11 (6.0-23.0) mg/dL Creatinine 0.8 (0.6-1.5) mg/dL Est Cr Clr Drug Dosing 63.93 mL/min Estimated GFR (MDRD) > 60.0 ml/min Glucose 121 H (60-110) mg/dL Calcium 10.1 (8.8-10.8) mg/dL Total Bilirubin 0.5 (0.1-1.5) mg/dL AST 18 (5-40) IU/L ALT 17 (8-54) IU/L Alkaline Phosphatase 123 (40-150) Troponin I < 0.10 (0.0-0.29) NG/ML Total Protein 7.4 (6.0-8.0) g/dL Albumin 4.1 (3.4-4.8) g/dL Globulin 3.3 (2.0-3.5) g/dL Albumin/Globulin Ratio 1.2 L (1.3-2.8) Meds: Medications Generic Name Dose Route Start Last Admin Trade Name Freq PRN Reason Stop Dose Admin Sodium Chloride 10 ml 06/23/17 13:38 06/23/17 14:12 Saline Flush FLUSH 10 ml ASDIRECTED PRN Administration Keep Vein Open Sodium Chloride 2.5 ml 06/23/17 13:38 06/23/17 14:12 Saline Flush FLUSH 2.5 ml ASDIRECTED PRN Administration Keep Vein Open Discontinued Medications Generic Name Dose Route Start Last Admin Trade Name Freq PRN Reason Stop Dose Admin Albuterol/Ipratropium 3 ml 06/23/17 13:38 06/23/17 13:52 Duoneb 3.0-0.5 Mg/3 Ml NEB 06/23/17 13:39 3 ml ONETIME ONE Administration Methylprednisolone Sodium Succinate 125 mg 06/23/17 13:38 06/23/17 14:13 Solu-Medrol IVPUSH 06/23/17 13:39 125 mg ONETIME ONE Administration Departure - Departure Time of Disposition: 14:40 Disposition: Home, Self-Care 01 Condition: Good Clinical Impression: Exacerbation of asthma Qualifiers: Asthma severity: mild Asthma persistence: unspecified Qualified Code(s): J45.901 - Unspecified asthma with (acute) exacerbation - Discharge Information Prescriptions: methylPREDNISolone [Medrol] 4 mg PO ASDIRECTED #1 dosepk Referrals: PCP,None [Primary Care Provider] - Forms: ED Department Discharge Additional Instructions: The following information is given to patients seen in the emergency department who are being discharged to home. This information is to outline your options for follow-up care. We provide all patients seen in our emergency department with a follow-up referral. The need for follow-up, as well as the timing and circumstances, are variable depending upon the specifics of your emergency department visit. If you don't have a primary care physician on staff, we will provide you with a referral. We always advise you to contact your personal physician following an emergency department visit to inform them of the circumstance of the visit and for follow-up with them and/or the need for any referrals to a consulting specialist. The emergency department will also refer you to a specialist when appropriate. This referral assures that you have the opportunity for followup care with a specialist. All of these measure are taken in an effort to provide you with optimal care, which includes your followup. Under all circumstances we always encourage you to contact your private physician who remains a resource for coordinating your care. When calling for followup care, please make the office aware that this follow-up is from your recent emergency room visit. If for any reason you are refused follow-up, please contact the [facility] emergency department at and asked to speak to the emergency department charge nurse. Follow-up with your primary care in 2 days Drug dose pack as directed - My Orders Last 24 Hours: My Active Orders 06/23/17 13:38 EKG Documentation Completion [RC] STAT Oxygen Therapy, ED [RC] ASDIRECTED RT Aerosol Therapy [RC] ASDIRECTED Sodium Chloride 0.9% [Saline Flush] 10 ml FLUSH ASDIRECTED PRN Sodium Chloride 0.9% [Saline Flush] 2.5 ml FLUSH ASDIRECTED PRN Saline Lock Insert [OM.PC] Stat - Assessment/Plan Last 24 Hours: My Active Orders 06/23/17 13:38 EKG Documentation Completion [RC] STAT Oxygen Therapy, ED [RC] ASDIRECTED RT Aerosol Therapy [RC] ASDIRECTED Sodium Chloride 0.9% [Saline Flush] 10 ml FLUSH ASDIRECTED PRN Sodium Chloride 0.9% [Saline Flush] 2.5 ml FLUSH ASDIRECTED PRN Saline Lock Insert [OM.PC] Stat
[2017-06-23] MEDS ORDERED: Sodium Chloride 0.9% 10 ML Syringe FLUSH PRN (13:38)
[2017-06-23] MEDS ORDERED: Albuterol/Ipratropium 3.0-0.5 MG/3 ML Neb Soln NEB ONE (13:38)
[2017-06-23] MEDS ORDERED: Sodium Chloride 0.9% 2.5 ML Syringe FLUSH PRN (13:38)
[2017-06-23] MEDS ORDERED: methylPREDNISolone Sodium Succinate 125 MG/2 ML SDV IVPUSH ONE (13:38)
[2017-06-23 14:18] LABS: CHLORIDE,CL 107 mmol/L (98-110); SODIUM,NA 143 mmol/L (136-146)
[2017-06-23 14:20] VITALS: BP 151/62
--- NOTE | 2017-06-23 14:20 | CR ---
EXAMINATION: Two-view chest (PA and Lateral views). HISTORY: Shortness of breath. FINDINGS: The trachea is midline. The cardiomediastinal silhouette is within normal limits. No pulmonary infilt rates, effusions or pneumothorax. Osseous structures appear unremarkable. IMPRESSION: No acute cardiopulmonary process.
== END 2017-06-23 14:50 | disposition home or self-care (01) ==
LOC: MW.ED 13:14
DX: J45.901 Unspecified asthma with (acute) exacerbation (principal); I10 Essential (primary) hypertension; F32.9 Major depressive disorder, single episode, unspecified; E03.9 Hypothyroidism, unspecified; E66.9 Obesity, unspecified; Z79.899 Other long term (current) drug therapy; Z88.5 Allergy status to narcotic agent; Z88.2 Allergy status to sulfonamides
CPT/HCPCS: 36415; 71020; 80053; 84484; 85025; 93005; 94640; 96374; 99285; J2930; 99283

== ENCOUNTER 2017-09-08 16:19 | Inpatient (IN) | payer MEDICARE ==
[2017-09-08] MEDS ORDERED: Sodium Chloride 0.9% 1,000 ML IV ONE ×2 (16:43→19:03)
[2017-09-08] MEDS ORDERED: Ketorolac 30 MG/ML SDV IVPUSH ONE (16:43)
[2017-09-08] MEDS ORDERED: Ondansetron 4 MG/2 ML SDV IVPUSH ONE (16:43)
--- NOTE | 2017-09-08 16:49 | EDM.PDOC ---
ED HPI GENERAL MEDICAL PROBLEM - General Chief Complaint: Abdominal Pain Stated Complaint: STOMACH PAIN/VOMITING Time Seen by Provider: 09/08/17 16:33 Source of Information: Reports: Patient History Limitations: Reports: No Limitations - History of Present Illness INITIAL COMMENTS - FREE TEXT/NARRATIVE: HISTORY AND PHYSICAL: History of present illness: Patient is a 67-year-old female who presents to the emergency room today with complaints of abdominal pain which started this morning. She states that the pain is in the lower middle and left lower quadrant. States "I think the pain was so bad that causes me to vomit". She has had some nausea and vomiting. Prior to arrival she tried to take a half a tablet of oxycodone that she had at home which has not alleviated her discomfort. She denies any dysuria, diarrhea or constipation. She mentions that she does have a history of colitis several years ago and is concerned that she may have that again today. Immunizations are up to date, has received the influenza vaccine this year. Review of systems: As per history of present illness and below otherwise all systems reviewed and negative. Past medical history: As per history of present illness and as reviewed below otherwise noncontributory. Surgical history: As per history of present illness and as reviewed below otherwise noncontributory. Social history: No reported history of drug or alcohol abuse. Family history: As per history of present illness and as reviewed below otherwise noncontributory. Physical exam: Gen.: Developed and well nourished 67-year-old female. Nontoxic appearing. Alert and oriented. HEENT: Atraumatic, normocephalic, pupils reactive, negative for conjunctival pallor or scleral icterus, mucous membranes moist, throat clear, neck supple, nontender, trachea midline. Lungs: Clear to auscultation, breath sounds equal bilaterally, chest nontender. Heart: S1S2, regular rate and rhythm Abdomen: Soft, nondistended, tenderness to the left lower quadrant. Negative for masses or hepatosplenomegaly. Negative for costovertebral tenderness. Pelvis: Stable nontender. Genitourinary: Deferred. Rectal: Deferred. Extremities: Atraumatic, negative for cords or calf pain. Neurovascular unremarkable. Neuro: Awake, alert, oriented. Cranial nerves II through XII unremarkable. Cerebellum unremarkable. Motor and sensory unremarkable throughout. Exam nonfocal. Dr. Graham had seen this patient's CT. She states that if the patient is admitted that she will see him in the morning and to place a consult. Patient has a [address] of the abdomen shows nonspecific free fluid in the pelvis with no localized collection. Colonic diverticulosis without definitive diverticulitis. Discussed this with patient. She states she is willing to stay overnight. I did contact Dr. Vitale for admission. He did agree to keep this patient as an inpatient. Diagnostics: CBC, CMP, UA, amylase, lipase, CT abdomen and pelvis Therapeutics: IV fluid, Zofran, Toradol Cipro and Flagyl-per Dr. Vitale's request Impression: Abdominal pain, leukocytosis Plan: Inpatient admission to [facility] Definitive disposition and diagnosis as appropriate pending reevaluation and review of above. Onset: Today Duration: Hour(s): Location: Reports: Abdomen Quality: Reports: Sharp Improves with: Reports: None Worsens with: Reports: None Associated Symptoms: Reports: Loss of Appetite, Nausea/Vomiting. Denies: Confusion, Chest Pain, Cough, cough w sputum, Diaphoresis, Fever/Chills, Headaches, Malaise, Rash, Seizure, Shortness of Breath, Syncope, Weakness Left Lower Abdominal Pain Score (Numeric/FACES): 10 - Related Data Allergies Allergy/AdvReac Type Severity Reaction Status Date / Time codeine Allergy Abdominal Verified 09/08/17 16:51 Pain morphine Allergy Abdominal Verified 09/08/17 16:51 Pain Sulfa (Sulfonamide Allergy Rash Verified 09/08/17 16:51 Antibiotics) Home Meds: Home Meds ALPRAZolam [Xanax] 0.25 mg PO ASDIRECTED PRN 01/14/17 [History] Isosorbide Mononitrate [Isosorbide Mononitrate ER] 30 mg PO DAILY 01/14/17 [ History] Levothyroxine [Synthroid] 75 mcg PO ACBREAKFAST 01/14/17 [History] Albuterol Sulfate [Proair Respiclick] 2 puff IH Q6HR 01/27/17 [History] Cholecalciferol (Vitamin D3) [D3-2000] 1,000 unit PO DAILY 01/27/17 [History] Etanercept [Enbrel] 50 mg SQ WEEKLY 01/27/17 [History] Fluticasone Propionate [Flovent HFA 220 mcg] 2 puff INH BID 01/27/17 [History] Lisinopril/Hydrochlorothiazide [Lisinopril-Hctz 20-12.5 mg Tab] 1 each PO DAILY 01/27/17 [History] Pantoprazole [ProTONIX] 40 mg PO DAILY #7 tab.cr 01/30/17 [Rx] Prednisone [IJD: predniSONE] 20 mg PO WITHBREAKFAST #8 tablet 01/30/17 [Rx] cloNIDine [Catapres] 0.1 mg PO Q8H PRN #8 tablet 01/30/17 [Rx] methylPREDNISolone [Medrol] 4 mg PO ASDIRECTED #1 dosepk 06/23/17 [Rx] Budesonide/Formoterol Fumarate [Symbicort 160-4.5 Mcg Inhaler] 2 puff INH BID [History] Past Medical History - Past Health History Medical/Surgical History: Denies Medical/Surgical History HEENT History: Reports: None Cardiovascular History: Reports: Hypertension. Denies: Blood Clots/VTE/DVT, CAD , Heart Failure, High Cholesterol, PR Respiratory History: Reports: Bronchitis, Recurrent Gastrointestinal History: Reports: None. Denies: GERD, GI Bleed Genitourinary History: Reports: None. Denies: Acute Renal Failure, Chronic Renal Insuffiency DIGITAL MANAGER History: Reports: None Musculoskeletal History: Reports: RA Neurological History: Reports: None. Denies: CVA, TIA Psychiatric History: Reports: Anxiety, Depression Endocrine/Metabolic History: Reports: Hypothyroidism, Obesity/BMI 30+. Denies: Diabetes, Type II Hematologic History: Reports: None Immunologic History: Reports: None Oncologic (Cancer) History: Reports: None Dermatologic History: Reports: None - Infectious Disease History Infectious Disease History: Reports: None Social & Family History - Family History Family Medical History: Noncontributory Cardiac: Reports: PR - Tobacco Use Smoking Status *Q: Never Smoker Second Hand Smoke Exposure: No - Caffeine Use Caffeine Use: Reports: Coffee - Alcohol Use Days Per Week of Alcohol Use: 3 Number of Drinks Per Day: 1 Total Drinks Per Week: 3 - Recreational Drug Use Recreational Drug Use: No ED ROS GENERAL - Review of Systems Review Of Systems: ROS reveals no pertinent complaints other than HPI. ED EXAM, GI/ABD - Physical Exam Exam: See Below (See dictation) Course - Vital Signs Last Recorded V/S: Last Vital Signs Temp 99.9 F 09/08/17 16:45 Pulse 81 09/08/17 16:45 Resp 20 09/08/17 16:45 BP 156/63 H 09/08/17 16:45 Pulse Ox 98 09/08/17 16:45 - Orders/Labs/Meds Orders: Active Orders 24 hr Category Date Time Status Admission Status [Patient Status] [ADT] Stat ADT 09/08/17 19:04 Active Abdomen Pelvis w Cont [CT] Stat Exams 09/08/17 16:43 Taken CULTURE BLOOD [BC] Stat Lab 09/08/17 18:15 Received CULTURE BLOOD [BC] Stat Lab 09/08/17 18:34 Received CULTURE URINE [RM] Stat Lab 09/08/17 18:04 Received Ciprofloxacin in D5W [Cipro in D5W 400 MG/200 ML] 400 Med 09/08/17 19:15 Active mg Premix Bag 1 bag IV Q12H Sodium Chloride 0.9% [Normal Saline] 1,000 ml Med 09/08/17 19:03 Active IV STAT metroNIDAZOLE/Normal Saline [Flagyl 500 MG in NS 100 ML Med 09/08/17 19:00 Active ] 500 mg Premix Bag 1 bag IV ONETIME Blood Culture x2 Reflex Set [OM.PC] Stat Oth 09/08/17 17:42 Ordered Medication Orders Ciprofloxacin/Dextrose 400 mg/ (Premix) 200 mls @ 200 mls/hr IV Q12H LOBO Metronidazole 500 mg/ Premix 100 mls @ 100 mls/hr IV ONETIME ONE Stop: 09/08/17 19:59 Sodium Chloride (Normal Saline) 1,000 mls @ 125 mls/hr IV STAT ONE Stop: 09/09/17 03:02 Labs: Laboratory Tests 09/08/17 09/08/17 09/08/17 Range/Units 17:00 17:00 18:04 WBC 22.32 H (4.0-11.0) K/uL RBC 4.43 (4.30-5.90) M/uL Hgb 13.4 (12.0-16.0) g/dL Hct 41.6 (36.0-46.0) % MCV 93.9 (80.0-98.0) fL MCH 30.2 (27.0-32.0) pg MCHC 32.2 (31.0-37.0) g/dL RDW Std Deviation 46.2 (28.0-62.0) fl RDW Coeff of Jessika 13 (11.0-15.0) % Plt Count 299 (150-400) K/uL MPV 10.40 (7.40-12.00) fL Neut % (Auto) 88.5 H (48.0-80.0) % Lymph % (Auto) 7.3 L (16.0-40.0) % [place] % (Auto) 3.8 (0.0-15.0) % Eos % (Auto) 0.3 (0.0-7.0) % Baso % (Auto) 0.1 (0.0-1.5) % Neut # (Auto) 19.7 H (1.4-5.7) K/uL Lymph # (Auto) 1.6 (0.6-2.4) K/uL [place] # (Auto) 0.9 H (0.0-0.8) K/uL Eos # (Auto) 0.1 (0.0-0.7) K/uL Baso # (Auto) 0.0 (0.0-0.1) K/uL Nucleated RBC % 0.0 /100WBC Nucleated RBCs # 0 K/uL Lactate (0.20-2.00) mmol/L Sodium 142 (136-146) mmol/L Potassium 3.9 (3.5-5.1) mmol/L Chloride 107 (98-110) mmol/L Carbon Dioxide 25 (21-31) mmol/L BUN 16 (6.0-23.0) mg/dL Creatinine 0.9 (0.6-1.5) mg/dL Est Cr Clr Drug Dosing 56.08 mL/min Estimated GFR (MDRD) > 60.0 ml/min Glucose 150 H (60-110) mg/dL Calcium 9.6 (8.8-10.8) mg/dL Total Bilirubin 0.5 (0.1-1.5) mg/dL AST 17 (5-40) IU/L ALT 18 (8-54) IU/L Alkaline Phosphatase 114 (40-150) Total Protein 7.6 (6.0-8.0) g/dL Albumin 4.1 (3.4-4.8) g/dL Globulin 3.5 (2.0-3.5) g/dL Albumin/Globulin Ratio 1.2 L (1.3-2.8) Amylase 22 (10-90) U/L Lipase < 9 (7-80) U/L Urine Color YELLOW Urine Appearance CLEAR Urine pH 7.0 (5.0-8.0) Ur Specific [place] 1.015 (1.001-1.035) Urine Protein NEGATIVE (NEGATIVE) mg/dL Urine Glucose (UA) NEGATIVE (NEGATIVE) mg/dL Urine Ketones NEGATIVE (NEGATIVE) mg/dL Urine Occult Blood NEGATIVE (NEGATIVE) Urine Nitrite NEGATIVE (NEGATIVE) Urine Bilirubin NEGATIVE (NEGATIVE) Urine Urobilinogen 1.0 (<2.0) EU/dL Ur Leukocyte Esterase NEGATIVE (NEGATIVE) Urine RBC 1-3 (0-2/HPF) Urine WBC 2-4 (0-5/HPF) Ur Epithelial Cells FEW (NONE-FEW) Urine Bacteria FEW (NEGATIVE) Urine Mucus LIGHT (NONE-MOD) 09/08/ Range/Units 18:34 WBC (4.0-11.0) K/uL RBC (4.30-5.90) M/uL Hgb (12.0-16.0) g/dL Hct (36.0-46.0) % MCV (80.0-98.0) fL MCH (27.0-32.0) pg MCHC (31.0-37.0) g/dL RDW Std Deviation (28.0-62.0) fl RDW Coeff of Jessika (11.0-15.0) % Plt Count (150-400) K/uL MPV (7.40-12.00) fL Neut % (Auto) (48.0-80.0) % Lymph % (Auto) (16.0-40.0) % [place] % (Auto) (0.0-15.0) % Eos % (Auto) (0.0-7.0) % Baso % (Auto) (0.0-1.5) % Neut # (Auto) (1.4-5.7) K/uL Lymph # (Auto) (0.6-2.4) K/uL [place] # (Auto) (0.0-0.8) K/uL Eos # (Auto) (0.0-0.7) K/uL Baso # (Auto) (0.0-0.1) K/uL Nucleated RBC % /100WBC Nucleated RBCs # K/uL Lactate 1.6 (0.20-2.00) mmol/L Sodium (136-146) mmol/L Potassium (3.5-5.1) mmol/L Chloride (98-110) mmol/L Carbon Dioxide (21-31) mmol/L BUN (6.0-23.0) mg/dL Creatinine (0.6-1.5) mg/dL Est Cr Clr Drug Dosing mL/min Estimated GFR (MDRD) ml/min Glucose (60-110) mg/dL Calcium (8.8-10.8) mg/dL Total Bilirubin (0.1-1.5) mg/dL AST (5-40) IU/L ALT (8-54) IU/L Alkaline Phosphatase (40-150) Total Protein (6.0-8.0) g/dL Albumin (3.4-4.8) g/dL Globulin (2.0-3.5) g/dL Albumin/Globulin Ratio (1.3-2.8) Amylase (10-90) U/L Lipase (7-80) U/L Urine Color Urine Appearance Urine pH (5.0-8.0) Ur Specific [place] (1.001-1.035) Urine Protein (NEGATIVE) mg/dL Urine Glucose (UA) (NEGATIVE) mg/dL Urine Ketones (NEGATIVE) mg/dL Urine Occult Blood (NEGATIVE) Urine Nitrite (NEGATIVE) Urine Bilirubin (NEGATIVE) Urine Urobilinogen (<2.0) EU/dL Ur Leukocyte Esterase (NEGATIVE) Urine RBC (0-2/HPF) Urine WBC (0-5/HPF) Ur Epithelial Cells (NONE-FEW) Urine Bacteria (NEGATIVE) Urine Mucus (NONE-MOD) Meds: Medications Generic Name Dose Route Start Last Admin Trade Name Freq PRN Reason Stop Dose Admin Ciprofloxacin/Dextrose 400 mg/ 200 mls @ 200 mls/hr 09/08/17 19:15 Premix IV Q12H LOBO Metronidazole 500 mg/ Premix 100 mls @ 100 mls/hr 09/08/17 19:00 IV 09/08/17 19:59 ONETIME ONE Sodium Chloride 1,000 mls @ 125 mls/hr 09/08/17 19:03 Normal Saline IV 09/09/17 03:02 STAT ONE Discontinued Medications Generic Name Dose Route Start Last Admin Trade Name Walker PRN Reason Stop Dose Admin Sodium Chloride 1,000 mls @ 999 mls/hr 09/08/17 16:43 09/08/17 17:05 Normal Saline IV 09/08/17 17:43 999 mls/hr STAT ONE Administration Iopamidol 100 ml 09/08/17 17:37 09/08/17 17:38 Isovue Multipack-370 (76%) IVPUSH 09/08/17 17:38 100 ml ONETIME STA Administration Ketorolac Tromethamine 30 mg 09/08/17 16:43 09/08/17 17:05 Toradol IVPUSH 09/08/17 16:44 30 mg ONETIME ONE Administration Ondansetron HCl 4 mg 09/08/17 16:43 09/08/17 17:05 Zofran IVPUSH 09/08/17 16:44 4 mg ONETIME ONE Administration Departure - Departure Time of Disposition: 19:20 Disposition: Admitted As Inpatient 68 Clinical Impression: Leukocytosis Qualifiers: Leukocytosis type: unspecified Qualified Code(s): D72.829 - Elevated white blood cell count, unspecified Abdominal pain Qualifiers: Abdominal location: left lower quadrant Qualified Code(s): R10.32 - Left lower quadrant pain - Discharge Information Referrals: Michael Chambers [Primary Care Provider] - Forms: ED Department Discharge - My Orders Last 24 Hours: My Active Orders 09/08/17 16:43 Abdomen Pelvis w Cont [CT] Stat 09/08/17 17:42 Blood Culture x2 Reflex Set [OM.PC] Stat 09/08/17 18:04 CULTURE URINE [RM] Stat 09/08/17 18:15 CULTURE BLOOD [BC] Stat 09/08/17 18:34 CULTURE BLOOD [BC] Stat 09/08/17 19:00 metroNIDAZOLE/Normal Saline [Flagyl 500 MG in NS 100 ML] 500 mg Premix Bag 1 bag IV ONETIME 09/08/17 19:03 Sodium Chloride 0.9% [Normal Saline] 1,000 ml IV STAT 09/08/17 19:04 Admission Status [Patient Status] [ADT] Stat 09/08/17 19:15 Ciprofloxacin in D5W [Cipro in D5W 400 MG/200 ML] 400 mg Premix Bag 1 bag IV Q12H - Assessment/Plan Last 24 Hours: My Active Orders 09/08/17 16:43 Abdomen Pelvis w Cont [CT] Stat 09/08/17 17:42 Blood Culture x2 Reflex Set [OM.PC] Stat 09/08/17 18:04 CULTURE URINE [RM] Stat 09/08/17 18:15 CULTURE BLOOD [BC] Stat 09/08/17 18:34 CULTURE BLOOD [BC] Stat 09/08/17 19:00 metroNIDAZOLE/Normal Saline [Flagyl 500 MG in NS 100 ML] 500 mg Premix Bag 1 bag IV ONETIME 09/08/17 19:03 Sodium Chloride 0.9% [Normal Saline] 1,000 ml IV STAT 09/08/17 19:04 Admission Status [Patient Status] [ADT] Stat 09/08/17 19:15 Ciprofloxacin in D5W [Cipro in D5W 400 MG/200 ML] 400 mg Premix Bag 1 bag IV Q12H
[2017-09-08 17:34] LABS: CHLORIDE,CL 107 mmol/L (98-110); SODIUM,NA 142 mmol/L (136-146)
[2017-09-08] MEDS ORDERED: Iopamidol 755 MG/ML 500 ML Multipack Bottle IVPUSH STA (17:37)
[2017-09-08] MEDS ORDERED: metroNIDAZOLE/Normal Saline 500 MG in Premix Bag 1 BAG IV ONE (19:00)
[2017-09-08] MEDS ORDERED: Ciprofloxacin in D5W 400 MG in Premix Bag 1 BAG IV SCH ×2 (19:15)
[2017-09-08] MEDS ORDERED: Ondansetron 4 MG Tab.DIS PO PRN (19:41)
[2017-09-08] MEDS ORDERED: Acetaminophen 325 MG Tab PO PRN (19:41)
--- NOTE | 2017-09-08 19:41 | PCM.HP ---
H&P History of Present Illness - General Date of Service: 09/08/17 Admit Problem/Dx: Admission Diagnosis/Problem Admission Diagnosis/Problem Leukocytosis Source of Information: Patient History Limitations: Reports: No Limitations - History of Present Illness Initial Comments - Free Text/Narative: Patient states that her abdominal pain started early this morning and located primarily in the lower middle and left lower quadrant. It was "crampy" and constant. She had associated nausea and vomiting. Also reports 6 soft stools this am. She denies any bloody or tarry stools. She has had a previous episode of "colitis" approximately 8 years ago with no subsequent episodes. She did have a recent colonscopy which was normal. She denies any foreign travel or other people in her home having similar symptoms. She does report that she ate at "[employer]" the evening before. No other members ate with her. She has had her gallbladder removed but still has her appendix. Denies chest pain, palpitations, sob, syncopal events or focal neurologic deficits. She has a history of RA and is on Enbril. She is allergic to Sulfa and morphine. She did receive the influenza vaccine this year. In the ED she was found to have leukocytosis of 22,000. She has been afebrile and blood cultures were taken. CT with contrast of the abdomen revealed a small amount of nonspecific pelvic free fluid but no localized collection. Colonic diverticulosis without definite diverticulitis. No bowel obstruction. A new 1 cm hyperdense right renal lesion at the anterior aspect of the midkidney. A solid renal lesion that could not be excluded and recommended renal ultrasound or renal CT for further evaluation. There was also a small hiatal hernia. No AAA and mesenteric vaculature was patent. Patient was given toradol in the ED with good pain control. Will admit to inpatient for leukocytosis secondary to possible colitis. Left Lower Abdominal Pain Score (Numeric/FACES): 10 - Related Data Allergies/Adverse Reactions: Allergies Allergy/AdvReac Type Severity Reaction Status Date / Time codeine Allergy Abdominal Verified 09/08/17 16:51 Pain morphine Allergy Abdominal Verified 09/08/17 16:51 Pain Sulfa (Sulfonamide Allergy Rash Verified 09/08/17 16:51 Antibiotics) Home Medications: Home Meds ALPRAZolam [Xanax] 0.25 mg PO ASDIRECTED PRN 01/14/17 [History] Isosorbide Mononitrate [Isosorbide Mononitrate ER] 30 mg PO DAILY 01/14/17 [ History] Levothyroxine [Synthroid] 75 mcg PO ACBREAKFAST 01/14/17 [History] Albuterol Sulfate [Proair Respiclick] 2 puff IH Q6HR 01/27/17 [History] Cholecalciferol (Vitamin D3) [D3-2000] 1,000 unit PO DAILY 01/27/17 [History] Etanercept [Enbrel] 50 mg SQ WEEKLY 01/27/17 [History] Fluticasone Propionate [Flovent HFA 220 mcg] 2 puff INH BID 01/27/17 [History] Lisinopril/Hydrochlorothiazide [Lisinopril-Hctz 20-12.5 mg Tab] 1 each PO DAILY 01/27/17 [History] Pantoprazole [ProTONIX] 40 mg PO DAILY #7 tab.cr 01/30/17 [Rx] Prednisone [IJD: predniSONE] 20 mg PO WITHBREAKFAST #8 tablet 01/30/17 [Rx] cloNIDine [Catapres] 0.1 mg PO Q8H PRN #8 tablet 01/30/17 [Rx] methylPREDNISolone [Medrol] 4 mg PO ASDIRECTED #1 dosepk 06/23/17 [Rx] Budesonide/Formoterol Fumarate [Symbicort 160-4.5 Mcg Inhaler] 2 puff INH BID [History] Past Medical History - Past Health History Medical/Surgical History: Denies Medical/Surgical History HEENT History: Reports: None Cardiovascular History: Reports: Hypertension. Denies: Blood Clots/VTE/DVT, CAD , Heart Failure, High Cholesterol, IN Respiratory History: Reports: Bronchitis, Recurrent Gastrointestinal History: Reports: None. Denies: GERD, GI Bleed Genitourinary History: Reports: None. Denies: Acute Renal Failure, Chronic Renal Insuffiency LINE DIRECTOR History: Reports: None Musculoskeletal History: Reports: RA Neurological History: Reports: None. Denies: CVA, TIA Psychiatric History: Reports: Anxiety, Depression Endocrine/Metabolic History: Reports: Hypothyroidism, Obesity/BMI 30+. Denies: Diabetes, Type II Hematologic History: Reports: None Immunologic History: Reports: None Oncologic (Cancer) History: Reports: None Dermatologic History: Reports: None - Infectious Disease History Infectious Disease History: Reports: None Social & Family History - Family History Family Medical History: Noncontributory Cardiac: Reports: IN - Tobacco Use Smoking Status *Q: Never Smoker Second Hand Smoke Exposure: No - Caffeine Use Caffeine Use: Reports: Coffee - Alcohol Use Days Per Week of Alcohol Use: 3 Number of Drinks Per Day: 1 Total Drinks Per Week: 3 - Recreational Drug Use Recreational Drug Use: No H&P Review of Systems - Review of Systems: Review Of Systems: See Below General: Denies: Fever, Chills, Malaise, Weakness, Fatigue, Night Sweats HEENT: Denies: Dysphasia, Headaches, Sore Throat Pulmonary: Denies: Shortness of Breath, Wheezing, Cough Cardiovascular: Denies: Chest Pain, Palpitations, Edema Gastrointestinal: Reports: Abdominal Pain, Diarrhea, Nausea, Vomiting. Denies: Black Stool, Bloody Stool Genitourinary: Denies: Dysuria, Hematuria, Flank Pain Musculoskeletal: Denies: Neck Pain, Leg Pain Skin: Denies: Cyanosis Psychiatric: Denies: Confusion, Depression Neurological: Denies: Confusion, Dizziness, Headache Hematologic/Lymphatic: Denies: Anemia, Easy Bleeding Exam - Exam Exam: See Below - Vital Signs Vital Signs: Last Vital Signs Temp 99.9 F 09/08/17 16:45 Pulse 81 09/08/17 16:45 Resp 20 09/08/17 16:45 BP 156/63 H 09/08/17 16:45 Pulse Ox 98 09/08/17 16:45 Weight: 90.718 kg - Exam Quality Assessment: DVT Prophylaxis General: Alert, Oriented, Cooperative HEENT: Conjunctiva Clear, EACs Clear, EOMI, Hearing Intact, Mucosa Moist & [place] , Nares Patent, Normal Nasal Septum, Posterior Pharynx Clear, PERRLA Neck: Supple, Trachea Midline, 2 Lungs: Clear to Auscultation, Normal Respiratory Effort Cardiovascular: Regular Rate, Regular Rhythm, Normal S1, Normal S2 GI/Abdominal Exam: Normal Bowel Sounds, Soft, No Organomegaly, No Distention, No Abnormal Bruit, No Mass, Tender (lower middle abdomen with some radiation to the Left lower quadrant no rebound) Back Exam: Normal Inspection Extremities: Normal Inspection, Normal Range of Motion, Non-Tender, No Pedal Edema, Normal Capillary Refill Peripheral Pulses: 2+: Radial (L), Radial (R), Posterior Tibial (L), Posterior Tibial (R), Dorsalis Pedis (L), Dorsalis Pedis (R) Skin: Warm, Dry, Intact Neurological: Cranial Nerves Intact Neuro Extensive - Mental Status: Alert, Oriented x3, Normal Mood/Affect Neuro Extensive - Motor, Sensory, Reflexes: CN II-XII Intact Psychiatric: Alert, Normal Affect, Normal Mood - Patient Data Lab Results Last 24 hrs: Laboratory Results - last 24 hr 09/08/17 09/08/17 09/08/17 Range/Units 17:00 17:00 18:04 WBC 22.32 H (4.0-11.0) K/uL RBC 4.43 (4.30-5.90) M/uL Hgb 13.4 (12.0-16.0) g/dL Hct 41.6 (36.0-46.0) % MCV 93.9 (80.0-98.0) fL MCH 30.2 (27.0-32.0) pg MCHC 32.2 (31.0-37.0) g/dL RDW Std Deviation 46.2 (28.0-62.0) fl RDW Coeff of Jessika 13 (11.0-15.0) % Plt Count 299 (150-400) K/uL MPV 10.40 (7.40-12.00) fL Neut % (Auto) 88.5 H (48.0-80.0) % Lymph % (Auto) 7.3 L (16.0-40.0) % [place] % (Auto) 3.8 (0.0-15.0) % Eos % (Auto) 0.3 (0.0-7.0) % Baso % (Auto) 0.1 (0.0-1.5) % Neut # (Auto) 19.7 H (1.4-5.7) K/uL Lymph # (Auto) 1.6 (0.6-2.4) K/uL [place] # (Auto) 0.9 H (0.0-0.8) K/uL Eos # (Auto) 0.1 (0.0-0.7) K/uL Baso # (Auto) 0.0 (0.0-0.1) K/uL Nucleated RBC % 0.0 /100WBC Nucleated RBCs # 0 K/uL Lactate (0.20-2.00) mmol/L Sodium 142 (136-146) mmol/L Potassium 3.9 (3.5-5.1) mmol/L Chloride 107 (98-110) mmol/L Carbon Dioxide 25 (21-31) mmol/L BUN 16 (6.0-23.0) mg/dL Creatinine 0.9 (0.6-1.5) mg/dL Est Cr Clr Drug Dosing 56.08 mL/min Estimated GFR (MDRD) > 60.0 ml/min Glucose 150 H (60-110) mg/dL Calcium 9.6 (8.8-10.8) mg/dL Total Bilirubin 0.5 (0.1-1.5) mg/dL AST 17 (5-40) IU/L ALT 18 (8-54) IU/L Alkaline Phosphatase 114 (40-150) Total Protein 7.6 (6.0-8.0) g/dL Albumin 4.1 (3.4-4.8) g/dL Globulin 3.5 (2.0-3.5) g/dL Albumin/Globulin Ratio 1.2 L (1.3-2.8) Amylase 22 (10-90) U/L Lipase < 9 (7-80) U/L Urine Color YELLOW Urine Appearance CLEAR Urine pH 7.0 (5.0-8.0) Ur Specific [place] 1.015 (1.001-1.035) Urine Protein NEGATIVE (NEGATIVE) mg/dL Urine Glucose (UA) NEGATIVE (NEGATIVE) mg/dL Urine Ketones NEGATIVE (NEGATIVE) mg/dL Urine Occult Blood NEGATIVE (NEGATIVE) Urine Nitrite NEGATIVE (NEGATIVE) Urine Bilirubin NEGATIVE (NEGATIVE) Urine Urobilinogen 1.0 (<2.0) EU/dL Ur Leukocyte Esterase NEGATIVE (NEGATIVE) Urine RBC 1-3 (0-2/HPF) Urine WBC 2-4 (0-5/HPF) Ur Epithelial Cells FEW (NONE-FEW) Urine Bacteria FEW (NEGATIVE) Urine Mucus LIGHT (NONE-MOD) 09/08/17 Range/Units 18:34 WBC (4.0-11.0) K/uL RBC (4.30-5.90) M/uL Hgb (12.0-16.0) g/dL Hct (36.0-46.0) % MCV (80.0-98.0) fL MCH (27.0-32.0) pg MCHC (31.0-37.0) g/dL RDW Std Deviation (28.0-62.0) fl RDW Coeff of [place] (11.0-15.0) % Plt Count (150-400) K/uL MPV (7.40-12.00) fL Neut % (Auto) (48.0-80.0) % Lymph % (Auto) (16.0-40.0) % [place] % (Auto) (0.0-15.0) % Eos % (Auto) (0.0-7.0) % Baso % (Auto) (0.0-1.5) % Neut # (Auto) (1.4-5.7) K/uL Lymph # (Auto) (0.6-2.4) K/uL [place] # (Auto) (0.0-0.8) K/uL Eos # (Auto) (0.0-0.7) K/uL Baso # (Auto) (0.0-0.1) K/uL Nucleated RBC % /100WBC Nucleated RBCs # K/uL Lactate 1.6 (0.20-2.00) mmol/L Sodium (136-146) mmol/L Potassium (3.5-5.1) mmol/L Chloride (98-110) mmol/L Carbon Dioxide (21-31) mmol/L BUN (6.0-23.0) mg/dL Creatinine (0.6-1.5) mg/dL Est Cr Clr Drug Dosing mL/min Estimated GFR (MDRD) ml/min Glucose (60-110) mg/dL Calcium (8.8-10.8) mg/dL Total Bilirubin (0.1-1.5) mg/dL AST (5-40) IU/L ALT (8-54) IU/L Alkaline Phosphatase (40-150) Total Protein (6.0-8.0) g/dL Albumin (3.4-4.8) g/dL Globulin (2.0-3.5) g/dL Albumin/Globulin Ratio (1.3-2.8) Amylase (10-90) U/L Lipase (7-80) U/L Urine Color Urine Appearance Urine pH (5.0-8.0) Ur Specific [place] (1.001-1.035) Urine Protein (NEGATIVE) mg/dL Urine Glucose (UA) (NEGATIVE) mg/dL Urine Ketones (NEGATIVE) mg/dL Urine Occult Blood (NEGATIVE) Urine Nitrite (NEGATIVE) Urine Bilirubin (NEGATIVE) Urine Urobilinogen (<2.0) EU/dL Ur Leukocyte Esterase (NEGATIVE) Urine RBC (0-2/HPF) Urine WBC (0-5/HPF) Ur Epithelial Cells (NONE-FEW) Urine Bacteria (NEGATIVE) Urine Mucus (NONE-MOD) Result Diagrams: 09/08/17 17:00 09/08/17 17:00 *Q Meaningful Use (ADM) - VTE *Q VTE Criteria *Q: - Stroke *Q Stroke Criteria *Q: - AMI *Q AMI Criteria *Q: - Problem List (1) HTN (hypertension) SNOMED Code(s): 62358742 ICD Code: I10 - ESSENTIAL (PRIMARY) HYPERTENSION Status: Chronic Priority : Low Current Visit: Yes Qualifiers: Hypertension type: essential hypertension Qualified Code(s): I10 - Essential (primary) hypertension (2) Rheumatoid arthritis SNOMED Code(s): 67872109 ICD Code: M06.9 - RHEUMATOID ARTHRITIS, UNSPECIFIED Status: Chronic Priority: Low Current Visit: Yes Qualifiers: Rheumatoid factor presence: unspecified presence Laterality: unspecified laterality (3) Abdominal pain SNOMED Code(s): 61270282 ICD Code: R10.9 - UNSPECIFIED ABDOMINAL PAIN Status: Acute Current Visit : Yes Qualifiers: Abdominal location: left lower quadrant Qualified Code(s): R10.32 - Left lower quadrant pain (4) Leukocytosis SNOMED Code(s): 023381985 ICD Code: D72.829 - ELEVATED WHITE BLOOD CELL COUNT, UNSPECIFIED Status: Acute Priority: High Current Visit: Yes Qualifiers: Leukocytosis type: unspecified Qualified Code(s): D72.829 - Elevated white blood cell count, unspecified Problem List Initiated/Reviewed/Updated: Yes Orders Last 24hrs: Active Orders 24 hr Category Date Time Status Admission Status [Patient Status] [ADT] Stat ADT 09/08/17 19:04 Active Abdomen Pelvis w Cont [CT] Stat Exams 09/08/17 16:43 Taken CULTURE BLOOD [BC] Stat Lab 09/08/17 18:15 Received CULTURE BLOOD [BC] Stat Lab 09/08/17 18:34 Received CULTURE URINE [RM] Stat Lab 09/08/17 18:04 Received Ciprofloxacin in D5W [Cipro in D5W 400 MG/200 ML] 400 Med 09/08/17 19:15 Active mg Premix Bag 1 bag IV Q12H Sodium Chloride 0.9% [Normal Saline] 1,000 ml Med 09/08/17 19:03 Active IV STAT metroNIDAZOLE/Normal Saline [Flagyl 500 MG in NS 100 ML Med 09/08/17 19:00 Active ] 500 mg Premix Bag 1 bag IV ONETIME Blood Culture x2 Reflex Set [OM.PC] Stat Oth 09/08/17 17:42 Ordered Medication Orders Ciprofloxacin/Dextrose 400 mg/ (Premix) 200 mls @ 200 mls/hr IV Q12H LOBO Metronidazole 500 mg/ Premix 100 mls @ 100 mls/hr IV ONETIME ONE Stop: 09/08/17 19:59 Sodium Chloride (Normal Saline) 1,000 mls @ 125 mls/hr IV STAT ONE Stop: 09/09/17 03:02 Assessment/Plan Comment:: 67 yo female admitted 09/08/17 for leukocytosis possible colitis with pmh of htn , RA on Enbril, and asthma. Leukocytosis: Nonspecific pelvic free fluid in abdomen and no specific evidence of colitis. Will treat now with Cipro and Flagyl IV and admit to inpatient. Will get stool guaic as well as stool cultures. Will consult surgery tomorrow Htn: Currently well controlled will cont. home meds. RA: Patient is on enbril so has decreased immune function. It looks as though she has been on Medrol which could be causing some of the leukocytosis. She has been afebrile. Will cont. to monitor. Asthma: Recently diagnosed and under control. Restart home meds and monitor. VTE: Heparin, SCD Dispo: 2-3 days pending.
[2017-09-08] MEDS ORDERED: ALPRAZolam 0.25 MG Tab PO PRN (19:50)
[2017-09-08] MEDS ORDERED: cloNIDine 0.1 MG Tab PO PRN (19:50)
[2017-09-08] MEDS: Ondansetron 4 MG/2 ML SDV IVPUSH PRN ×2 (20:21→20:22)
[2017-09-08] MEDS: Ciprofloxacin in D5W 400 MG in Premix Bag 1 BAG IV SCH ×2 (21:24)
[2017-09-08] MEDS: Ketorolac 30 MG/ML SDV IM PRN (21:56)
[2017-09-08] MEDS: Fluticasone Propionate 220 MCG/Puff 12 GM Inhaler INH SCH (22:43)
[2017-09-08] MEDS: metroNIDAZOLE/Normal Saline 500 MG in Premix Bag 1 BAG IV SCH (23:33)
[2017-09-09] MEDS: Ketorolac 30 MG/ML SDV IM PRN (04:43)
[2017-09-09] MEDS: Ketorolac 30 MG/ML SDV IVPUSH PRN ×3 (05:36→17:22)
[2017-09-09] MEDS: metroNIDAZOLE/Normal Saline 500 MG in Premix Bag 1 BAG IV SCH ×4 (05:38→23:34)
[2017-09-09 06:42] LABS: CHLORIDE,CL 109 mmol/L (98-110); SODIUM,NA 138 mmol/L (136-146)
[2017-09-09] MEDS: Ciprofloxacin in D5W 400 MG in Premix Bag 1 BAG IV SCH ×4 (06:58→19:20)
[2017-09-09] MEDS: Levothyroxine 50 MCG Tab PO SCH (07:27)
[2017-09-09] MEDS ORDERED: Pantoprazole 40 MG Tab.CR PO SCH (09:00)
--- NOTE | 2017-09-09 09:10 | CT ---
EXAM DATE: 09/08/17 PATIENT'S AGE: 67 Patient: KENNY ARAMBULA Facility: [place], [place] Site . Site : 1950 Study: CT Abdomen/Pelvis [id number]/20/2017 6:18:02 PM Ordering Physician: Doctor Hopper Final Report: HISTORY: Abdominal pain. TECHNIQUE: Intravenous contrast enhanced CT of the abdomen and pelvis. COMPARISON: 08/13/2010. FINDINGS: There is no focal liver parenchymal abnormality. Prior cholecystectomy. Mild prominence the extrahepatic bile duct likely relates to postcholecystectomy reservoir effect. Spleen size is within limits. The adrenal glands are normal. There is no focal pancreatic abnormality or acute peripancreatic inflammatory change. Symmetric nephrograms. 1 cm lesion at the anterior aspect of the mid right kidney is new from the prior CT and appears hyperdense. There are few additional sub cm low-density really renal lesions bilaterally which are too small to characterize but could represent tiny cysts. On the left, there are likely parapelvic cysts. There is no hydronephrosis or obstructive urinary calculus. Urinary bladder does not appear overly distended. - Small hiatal hernia as before. No small bowel obstruction. No appendicitis. There is colonic diverticulosis. There is a small amount of pelvic free fluid which is nonspecific. There is no localized collection. No free air. Small fat containing umbilical region hernia is unchanged. No abdominal aortic aneurysm. Mesenteric vasculature is patent. - Degenerative changes of the sacroiliac joints and spine. Probable vertebral body hemangioma within T12. No acute fracture. - Areas of atelectasis or scarring within the lung bases. IMPRESSION: 1. Small amount of nonspecific pelvic free fluid. No localized collection. 2. Colonic diverticulosis without definite diverticulitis. 3. No bowel obstruction. 4. Prior cholecystectomy. 5. New 1 cm hyperdense right renal lesion at the anterior aspect of the midkidney. While this could represent a proteinaceous or hemorrhagic cyst, a solid renal lesion is not excluded. Consider either renal CT without with contrast or renal ultrasound for further evaluation. 6. Small hiatal hernia as before. 7. No abdominal aortic aneurysm. Mesenteric vasculature is patent. Dictated by Tyrone Galdamez MD @ 09/08/2017 6:48:00 PM Dictated by: Tyrone Galdamez MD @ 09/08/2017 18:48:15 (Electronic Signature) Patient: KENNY ARAMBULA Facility: [place], [place] Site Site : 1950 Study: CT Abdomen/Pelvis [id number]/20/2017 6:29:15 PM Ordering Physician: PHONG Final Report: HISTORY: Abdomen pain. TECHNIQUE: The abdomen and pelvis were scanned using technique after administration of Isovue-370. Sagittal and coronal reconstructions were performed pre COMPARISON: 13 August 2010. FINDINGS: Lung bases: Persistent or recurrent atelectatic lung or scarring in the lung bases. Liver and gallbladder: The liver parenchyma is homogeneous. Prior cholecystectomy. Spleen, pancreas and adrenal glands: Unremarkable. AP and bladder: Symmetric nephrograms. There is increased numbers of small cortical cysts. The lower pole of the left kidney has a 9 mm fatty focus most likely an angiomyolipoma. Stable small parapelvic cyst left kidney. Bladder is incompletely distended. Retroperitoneum and lymph nodes: The abdominal aorta is normal caliber. No pathologic benji aortic lymphadenopathy is seen. GI tract: Small hiatal hernia. The stomach is decompressed. There is some fluid seen in nondilated small bowel loops. Normal appendix is seen and images 97- 104. There is small mesenteric lymph nodes in the right lower quadrant. There is stool and gas seen throughout the colon. There is diverticula of the sigmoid colon. There is pericolonic inflammatory change about the proximal to mid sigmoid colon at the left pelvic sidewall. There comparable both air seen on axial image 113. They may represent diverticula or tiny microperforation. There is trace free fluid the pelvis. No free air in the abdomen. Pelvic organs: The uterus and adnexa are within normal limits. Osseous structures: Bone island is seen within the left acetabulum without change. Degenerative changes of the discs and facets in the lower lumbar spine. T12 hemangioma. IMPRESSION: 1. There are sigmoid diverticula present. There is inflammatory change seen in the pericolonic fat of the proximal to mid sigmoid colon at the left pelvic sidewall compatible with acute diverticulitis. There are couple bubbles of extraluminal air seen which may represent a diverticulum or a no perforation. No abscess. 2. Trace free fluid the pelvis. This may be reactive. Uterus and adnexa are unremarkable. 3. Normal appendix. 4. Small bilateral renal cysts and left parapelvic cysts. There is also a 9 mm fatty focus within the left renal cortex compatible with an angiomyolipoma. Dictated by Desiree Calvo MD @ 09/08/2017 6:59:48 PM Dictated by: Desiree Calvo MD @ 09/08/2017 19:00:16 (Electronic Signature) Report Signed by Proxy. ANTONINA
[2017-09-09] MEDS: Fluticasone Propionate 220 MCG/Puff 12 GM Inhaler INH SCH (09:16)
[2017-09-09] MEDS: Isosorbide Mononitrate 30 MG Tab.ER PO SCH ×2 (09:17→10:54)
[2017-09-09] MEDS: Non-Formulary Medication 1 Each (Lisinopril/Hydrochlorothiazide [Lisinopril-Hctz 20-12.5 M PO SCH ×2 (09:17→10:58)
[2017-09-09] MEDS ORDERED: Sodium Chloride 0.9% 1,000 ML IV SCH ×2 (09:30→15:28)
--- NOTE | 2017-09-09 09:36 | PCM.PN ---
- General Info Date of Service: 09/09/17 Admission Dx/Problem (Free Text): Admission Diagnosis/Problem Admission Diagnosis/Problem Diverticulitis Subjective Update: Feeling a little better this morning, having some LLQ pain still this morning, needing the IV Toradol. Feels a little bloated. No chest pain or SOB. Functional Status: Reports: Pain Controlled, Ambulating, Urinating - Review of Systems HEENT: Reports: No Symptoms. Denies: Sore Throat Pulmonary: Reports: No Symptoms. Denies: Shortness of Breath, Cough, Sputum Cardiovascular: Reports: No Symptoms. Denies: Chest Pain, Edema Gastrointestinal: Reports: Abdominal Pain (LLQ). Denies: Diarrhea, Nausea, Vomiting Genitourinary: Reports: No Symptoms. Denies: Dysuria, Frequency, Burning Neurological: Reports: No Symptoms. Denies: Confusion Psychiatric: Reports: No Symptoms. Denies: Confusion - Patient Data Vitals - Most Recent: Last Vital Signs Temp 98.2 F 09/09/17 08:00 Pulse 70 09/09/17 08:00 Resp 22 H 09/09/17 08:00 BP 136/41 L 09/09/17 08:00 Pulse Ox 94 L 09/09/17 08:00 Weight - Most Recent: 90.718 kg I&O - Last 24 Hours: Intake & Output 09/08/17 09/09/17 09/09/17 22:59 06:59 14:59 Intake Total 200 900 Output Total 200 Balance 200 700 Lab Results Last 24 Hours: Laboratory Results - last 24 hr 09/09/17 09/09/17 Range/Units 06:00 06:00 WBC 18.60 H (4.0-11.0) K/uL RBC 3.82 L (4.30-5.90) M/uL Hgb 11.6 L (12.0-16.0) g/dL Hct 36.0 (36.0-46.0) % MCV 94.2 (80.0-98.0) fL MCH 30.4 (27.0-32.0) pg MCHC 32.2 (31.0-37.0) g/dL RDW Std Deviation 47.2 (28.0-62.0) fl RDW Coeff of Jessika 14 (11.0-15.0) % Plt Count 233 (150-400) K/uL MPV 10.60 (7.40-12.00) fL Neut % (Auto) 87.1 H (48.0-80.0) % Lymph % (Auto) 6.8 L (16.0-40.0) % [place] % (Auto) 5.6 (0.0-15.0) % Eos % (Auto) 0.4 (0.0-7.0) % Baso % (Auto) 0.1 (0.0-1.5) % Neut # (Auto) 16.2 H (1.4-5.7) K/uL Lymph # (Auto) 1.3 (0.6-2.4) K/uL [place] # (Auto) 1.1 H (0.0-0.8) K/uL Eos # (Auto) 0.1 (0.0-0.7) K/uL Baso # (Auto) 0.0 (0.0-0.1) K/uL Nucleated RBC % 0.0 /100WBC Nucleated RBCs # 0 K/uL Sodium 138 (136-146) mmol/L Potassium 3.6 (3.5-5.1) mmol/L Chloride 109 (98-110) mmol/L Carbon Dioxide 21 (21-31) mmol/L BUN 16 (6.0-23.0) mg/dL Creatinine 0.8 (0.6-1.5) mg/dL Est Cr Clr Drug Dosing 63.09 mL/min Estimated GFR (MDRD) > 60.0 ml/min Glucose 137 H (60-110) mg/dL Calcium 8.4 L (8.8-10.8) mg/dL Phosphorus 3.0 (2.4-4.7) mg/dL Magnesium 1.2 L (1.5-2.3) mEq/L Med Orders - Current: Current Medications Acetaminophen (Tylenol) 650 mg PO Q4H PRN PRN Reason: Pain (Mild 1-3)/fever Last Admin: 09/08/17 20:21 Dose: 650 mg Alprazolam (Xanax) 0.25 mg PO ASDIRECTED PRN PRN Reason: Anxiety Clonidine HCl (Catapres) 0.1 mg PO Q8H PRN PRN Reason: Other Ciprofloxacin/Dextrose 400 mg/ (Premix) 200 mls @ 200 mls/hr IV Q12H [facility] Last Admin: 09/09/17 06:58 Dose: 200 mls/hr Metronidazole 500 mg/ Premix 100 mls @ 100 mls/hr IV QID [facility] Last Admin: 09/09/17 05:38 Dose: 100 mls/hr Sodium Chloride (Normal Saline) 1,000 mls @ 100 mls/hr IV ASDIRECTED [facility] Isosorbide Mononitrate (Imdur) 30 mg PO DAILY [facility] Last Admin: 09/09/17 09:17 Dose: Not Given Ketorolac Tromethamine (Toradol) 30 mg IVPUSH Q6H PRN PRN Reason: Pain (moderate 4-6) Last Admin: 09/09/17 05:36 Dose: 30 mg Levothyroxine Sodium (Synthroid) 75 mcg PO ACBREAKFAST [facility] Last Admin: 09/09/17 07:27 Dose: 75 mcg (Budesonide/Formoterol [id number] Mcg Patients Own Med 2 puff INH BID [facility] Last Admin: 09/09/17 09:16 Dose: 2 puff Non-Formulary Medication (Lisinopril/Hydrochlorothiazide [Lisinopril-Hctz 20- 12.5 Mg Tab]) 1 each PO DAILY [facility] Last Admin: 09/09/17 09:17 Dose: Not Given Ondansetron HCl (Zofran Odt) 4 mg PO Q4H PRN PRN Reason: nausea, able to take PO Ondansetron HCl (Zofran) 4 mg IVPUSH Q4H PRN PRN Reason: Nausea Last Admin: 09/08/17 20:22 Dose: 4 mg Pantoprazole Sodium (Protonix) 40 mg PO DAILY [facility] Last Admin: 09/09/17 09:17 Dose: Not Given Discontinued Medications Fluticasone Propionate (Flovent Hfa 220 Mcg) 0 gm INH BIDRT [facility] Last Admin: 09/09/17 09:16 Dose: Not Given Sodium Chloride (Normal Saline) 1,000 mls @ 999 mls/hr IV STAT ONE Stop: 09/08/17 17:43 Last Admin: 09/08/17 17:05 Dose: 999 mls/hr Ciprofloxacin/Dextrose 400 mg/ (Premix) 200 mls @ 200 mls/hr IV Q12H [facility] Last Admin: 09/08/17 22:07 Dose: Not Given Metronidazole 500 mg/ Premix 100 mls @ 100 mls/hr IV ONETIME ONE Stop: 09/08/17 19:59 Last Admin: 09/08/17 19:40 Dose: 100 mls/hr Sodium Chloride (Normal Saline) 1,000 mls @ 125 mls/hr IV STAT ONE Stop: 09/09/17 03:02 Last Admin: 09/08/17 19:40 Dose: 125 mls/hr Iopamidol (Isovue Multipack-370 (76%)) 100 ml IVPUSH ONETIME STA Stop: 09/08/17 17:38 Last Admin: 09/08/17 17:38 Dose: 100 ml Ketorolac Tromethamine (Toradol) 30 mg IVPUSH ONETIME ONE Stop: 09/08/17 16:44 Last Admin: 09/08/17 17:05 Dose: 30 mg Ketorolac Tromethamine (Toradol) 30 mg IM Q6H PRN PRN Reason: Pain (moderate 4-6) Last Admin: 09/08/17 21:56 Dose: 30 mg Ondansetron HCl (Zofran) 4 mg IVPUSH ONETIME ONE Stop: 09/08/17 16:44 Last Admin: 09/08/17 17:05 Dose: 4 mg - Exam Quality Assessment: DVT Prophylaxis General: Alert, Oriented, Cooperative, No Acute Distress Neck: Supple Lungs: Clear to Auscultation, Normal Respiratory Effort Cardiovascular: Regular Rate, Regular Rhythm GI/Abdominal Exam: Normal Bowel Sounds, Soft, Non-Tender, No Organomegaly, No Distention, No Abnormal Bruit, No Mass, Pelvis Stable Back Exam: Normal Inspection, Full Range of Motion Extremities: Normal Inspection, Normal Range of Motion, Non-Tender, No Pedal Edema, Normal Capillary Refill Neurological: No New Focal Deficit Psy/Mental Status: Alert, Normal Affect, Normal Mood - Problem List & Annotations (1) Diverticulitis of sigmoid colon SNOMED Code(s): 231681355 Code(s): K57.32 - DVTRCLI OF LG INT W/O PERFORATION OR ABSCESS W/O BLEEDING Status: Acute Current Visit: Yes (2) Abdominal pain SNOMED Code(s): 03791297 Code(s): R10.9 - UNSPECIFIED ABDOMINAL PAIN Status: Acute Current Visit: Yes Qualifiers: Abdominal location: left lower quadrant Qualified Code(s): R10.32 - Left lower quadrant pain (3) HTN (hypertension) SNOMED Code(s): 64967663 Code(s): I10 - ESSENTIAL (PRIMARY) HYPERTENSION Status: Chronic Priority : Low Current Visit: Yes Qualifiers: Hypertension type: essential hypertension Qualified Code(s): I10 - Essential (primary) hypertension (4) Rheumatoid arthritis SNOMED Code(s): 00143256 Code(s): M06.9 - RHEUMATOID ARTHRITIS, UNSPECIFIED Status: Chronic Priority: Low Current Visit: Yes Qualifiers: Rheumatoid factor presence: unspecified presence Laterality: unspecified laterality (5) History of asthma SNOMED Code(s): 014772337 Code(s): Z87.09 - PERSONAL HISTORY OF OTHER DISEASES OF THE RESPIRATORY SYSTEM Status: Chronic Current Visit: Yes - Problem List Review Problem List Initiated/Reviewed/Updated: Yes - My Orders Last 24 Hours: My Active Orders 09/09/17 08:07 Notify Provider Consults [RC] ASDIRECTED Consult to Physician [CONS] Routine 09/09/17 09:30 Sodium Chloride 0.9% @ 100 MLS/HR(1,000ml) Sodium Chloride 0.9% [Normal Saline] 1,000 ml IV ASDIRECTED 09/09/17 Breakfast NPO [Nothing Per Oral Diet] [DIET] - Plan Plan:: 67 year old female admitted 09/08/17 for leukocytosis possible colitis with pmh of htn, RA on Enbril, and asthma. 1. Diverticulitis: Pain improving. Second reading on CT reveals diverticulitis of sigmoid colon with inflammatory changes seen in the pericolonic fat of the proximal to mid sigmoid colon at the left pelvic sidewall with a few bubbles of extraluminal air seen, no perforation or abscess. Continue with Cipro and Flagyl IV. Bowel rest. Will start NS 100 ml for now, monitor closely. Will get stool guaic as well as stool cultures. Dr. Welch to visit with patient. Patient denies known history of diverticulosis had colonscopy approximately 7-8 years ago, reporting it was good. 2. Htn: Stable, continue Imdur and Lisinopril. 3. RA: Patient is on enbril so has decreased immune function. Continue to monitor. 4. Asthma: Stable. Restart home meds and monitor. VTE: Heparin Dispo: 2-3 days pending.
[2017-09-09] MEDS ORDERED: Magnesium Sulfate/Water 2 GM in Premix Bag 1 BAG IV ONE (10:21)
[2017-09-09] MEDS: Pantoprazole 40 MG Vial IVPUSH SCH (10:55)
--- NOTE | 2017-09-09 15:08 | PCM.CONS ---
H&P History of Present Illness - General Date of Service: 09/09/17 Admit Problem/Dx: Admission Diagnosis/Problem Admission Diagnosis/Problem Diverticulitis Source of Information: Patient History Limitations: Reports: No Limitations - History of Present Illness Initial Comments - Free Text/Narative: Patient is a 67 F who presented with diverticulitis last evening. She developed LLQ abdominal pain yesterday morning. It became more severe, sharp and crampy as the day went on. She developed chills, nausea, vomiting and a low grade temp. She presented to the ED and was found on CT to have diverticulitis. She had "colitis" many years ago. Her last colonoscopy was approximately 8 years ago. It was normal. Left Lower Abdominal Pain Score (Numeric/FACES): 7 Abdomen Pain Score (Numeric/FACES): 2 - Related Data Allergies/Adverse Reactions: Allergies Allergy/AdvReac Type Severity Reaction Status Date / Time codeine Allergy Abdominal Verified 09/08/17 16:51 Pain morphine Allergy Abdominal Verified 09/08/17 16:51 Pain Sulfa (Sulfonamide Allergy Rash Verified 09/08/17 16:51 Antibiotics) Home Medications: Home Meds ALPRAZolam [Xanax] 0.25 mg PO ASDIRECTED PRN 01/14/17 [History] Isosorbide Mononitrate [Isosorbide Mononitrate ER] 30 mg PO DAILY 01/14/17 [ History] Levothyroxine [Synthroid] 75 mcg PO ACBREAKFAST 01/14/17 [History] Albuterol Sulfate [Proair Respiclick] 2 puff IH Q6HR 01/27/17 [History] Cholecalciferol (Vitamin D3) [D3-2000] 1,000 unit PO DAILY 01/27/17 [History] Etanercept [Enbrel] 50 mg SQ WEEKLY 01/27/17 [History] Fluticasone Propionate [Flovent HFA 220 mcg] 2 puff INH BID 01/27/17 [History] Lisinopril/Hydrochlorothiazide [Lisinopril-Hctz 20-12.5 mg Tab] 1 each PO DAILY 01/27/17 [History] Pantoprazole [ProTONIX] 40 mg PO DAILY #7 tab.cr 01/30/17 [Rx] Prednisone [IJD: predniSONE] 20 mg PO WITHBREAKFAST #8 tablet 01/30/17 [Rx] cloNIDine [Catapres] 0.1 mg PO Q8H PRN #8 tablet 01/30/17 [Rx] methylPREDNISolone [Medrol] 4 mg PO ASDIRECTED #1 dosepk 06/23/17 [Rx] Budesonide/Formoterol Fumarate [Symbicort 160-4.5 Mcg Inhaler] 2 puff INH BID [History] Past Medical History - Past Health History Medical/Surgical History: Denies Medical/Surgical History HEENT History: Reports: None Cardiovascular History: Reports: Hypertension. Denies: Blood Clots/VTE/DVT, CAD , Heart Failure, High Cholesterol, [place] Respiratory History: Reports: Bronchitis, Recurrent Gastrointestinal History: Reports: None. Denies: GERD, GI Bleed Genitourinary History: Reports: None. Denies: Acute Renal Failure, Chronic Renal Insuffiency [employer]ETING ANALYTICS SPECIALIST History: Reports: None Musculoskeletal History: Reports: RA Neurological History: Reports: None. Denies: CVA, TIA Psychiatric History: Reports: Anxiety, Depression Endocrine/Metabolic History: Reports: Hypothyroidism, Obesity/BMI 30+. Denies: Diabetes, Type II Hematologic History: Reports: None Immunologic History: Reports: None Oncologic (Cancer) History: Reports: None Dermatologic History: Reports: None - Infectious Disease History Infectious Disease History: Reports: None - Past Surgical History HEENT Surgical History: Reports: Tonsillectomy GI Surgical History: Reports: Cholecystectomy Social & Family History - Family History Family Medical History: Noncontributory Cardiac: Reports: [place] - Tobacco Use Smoking Status *Q: Never Smoker Second Hand Smoke Exposure: No - Caffeine Use Caffeine Use: Reports: Coffee - Alcohol Use Days Per Week of Alcohol Use: 3 Number of Drinks Per Day: 1 Total Drinks Per Week: 3 Date of Last Drink: 09/07/17 - Recreational Drug Use Recreational Drug Use: No H&P Review of Systems - Review of Systems: Review Of Systems: ROS reveals no pertinent complaints other than HPI. Exam - Exam Exam: See Below - Vital Signs Vital Signs: Last Vital Signs Temp 35.9 C 09/09/17 12:00 Pulse 73 09/09/17 12:00 Resp 22 H 09/09/17 12:00 BP 159/71 H 09/09/17 12:00 Pulse Ox 92 L 09/09/17 12:00 Weight: 90.718 kg - Exam General: Alert, Oriented HEENT: Conjunctiva Clear, EACs Clear Neck: Supple Lungs: Clear to Auscultation, Normal Respiratory Effort Cardiovascular: Regular Rate, Regular Rhythm GI/Abdominal Exam: Distended, Tender (LLQ). No: Guarding, Rigid, Rebound Extremities: Normal Inspection - Patient Data Lab Results Last 24 hrs: Laboratory Results - last 24 hr 09/09/17 09/09/17 Range/Units 06:00 06:00 WBC 18.60 H (4.0-11.0) K/uL RBC 3.82 L (4.30-5.90) M/uL Hgb 11.6 L (12.0-16.0) g/dL Hct 36.0 (36.0-46.0) % MCV 94.2 (80.0-98.0) fL MCH 30.4 (27.0-32.0) pg MCHC 32.2 (31.0-37.0) g/dL RDW Std Deviation 47.2 (28.0-62.0) fl RDW Coeff of Jessika 14 (11.0-15.0) % Plt Count 233 (150-400) K/uL MPV 10.60 (7.40-12.00) fL Neut % (Auto) 87.1 H (48.0-80.0) % Lymph % (Auto) 6.8 L (16.0-40.0) % [place] % (Auto) 5.6 (0.0-15.0) % Eos % (Auto) 0.4 (0.0-7.0) % Baso % (Auto) 0.1 (0.0-1.5) % Neut # (Auto) 16.2 H (1.4-5.7) K/uL Lymph # (Auto) 1.3 (0.6-2.4) K/uL [place] # (Auto) 1.1 H (0.0-0.8) K/uL Eos # (Auto) 0.1 (0.0-0.7) K/uL Baso # (Auto) 0.0 (0.0-0.1) K/uL Nucleated RBC % 0.0 /100WBC Nucleated RBCs # 0 K/uL Sodium 138 (136-146) mmol/L Potassium 3.6 (3.5-5.1) mmol/L Chloride 109 (98-110) mmol/L Carbon Dioxide 21 (21-31) mmol/L BUN 16 (6.0-23.0) mg/dL Creatinine 0.8 (0.6-1.5) mg/dL Est Cr Clr Drug Dosing 63.09 mL/min Estimated GFR (MDRD) > 60.0 ml/min Glucose 137 H (60-110) mg/dL Calcium 8.4 L (8.8-10.8) mg/dL Phosphorus 3.0 (2.4-4.7) mg/dL Magnesium 1.2 L (1.5-2.3) mEq/L Result Diagrams: 09/09/17 06:00 09/09/17 06:00 Consult PN Assessment/Plan Procedures: Procedures AIRWAY INHALATION TREATMENT (06/23/17) [id number] PHENO (03/08/17) [id number] TOTAL (03/08/17) ASSAY OF TROPONIN QUANT (06/23/17) ASSAY THYROID STIM HORMONE (07/06/17) CHEST X-RAY 1 VIEW FRONTAL (01/14/17) CHEST X-RAY 2VW FRONTAL&LATL (06/23/17) COMPLETE CBC W/AUTO DIFF WBC (06/23/17) COMPREHEN METABOLIC PANEL (06/23/17) CT THORAX W/O DYE (03/15/17) ELECTROCARDIOGRAM TRACING (06/23/17) EMERGENCY DEPT VISIT (06/23/17) EVALUATE PT USE OF INHALER (01/14/17) LIPID PANEL (07/06/17) ROUTINE VENIPUNCTURE (07/06/17) THER/PROPH/DIAG INJ IV PUSH (06/23/17) THER/PROPH/DIAG INJ SC/IM (01/14/17) URINALYSIS AUTO W/SCOPE (01/14/17) (1) Diverticulitis of sigmoid colon SNOMED Code(s): 330165449 Code(s): K57.32 - DVTRCLI OF LG INT W/O PERFORATION OR ABSCESS W/O BLEEDING Current Visit: Yes Problem List Initiated/Reviewed/Updated: Yes Plan: Patient is a 67F who presents with her first documented attack of diverticulitis (at least here). We discussed the pathophysiology and treatment course with un-complicated diverticulitis. Once her WBC returns to normal and her abdominal pain improves she can be advanced to a clear liquid diet then to regular as tolerated. I would keep her NPO today. I explained that her bloating , abdominal discomfort and bowel habits will take weeks to get back to normal. She should continue on the current antibiotic treatment. I will see her in the morning. She should follow up with me 2-4 weeks after discharge to schedule for a diagnostic colonoscopy.
[2017-09-09] MEDS: Simethicone 80 MG Tab.Chew PO PRN ×2 (15:47→20:19)
[2017-09-09] MEDS: Ondansetron 4 MG/2 ML SDV IVPUSH PRN (20:24)
[2017-09-10] MEDS: Ondansetron 4 MG/2 ML SDV IVPUSH PRN ×3 (00:30→22:02)
[2017-09-10] MEDS: metroNIDAZOLE/Normal Saline 500 MG in Premix Bag 1 BAG IV SCH ×4 (06:07→23:20)
[2017-09-10 06:19] LABS: CHLORIDE,CL 112 mmol/L (98-110); SODIUM,NA 140 mmol/L (136-146)
[2017-09-10] MEDS: Levothyroxine 50 MCG Tab PO SCH (06:44)
[2017-09-10] MEDS: Ciprofloxacin in D5W 400 MG in Premix Bag 1 BAG IV SCH ×2 (06:50)
[2017-09-10] MEDS ORDERED: ALPRAZolam 0.25 MG Tab PO PRN (08:30)
[2017-09-10] MEDS: Non-Formulary Medication 1 Each (Lisinopril/Hydrochlorothiazide [Lisinopril-Hctz 20-12.5 M PO SCH (09:11)
[2017-09-10] MEDS: Lisinopril 10 MG Tab PO SCH (09:13)
[2017-09-10] MEDS: Isosorbide Mononitrate 30 MG Tab.ER PO SCH (09:13)
--- NOTE | 2017-09-10 09:13 | PCM.PN ---
- General Info Date of Service: 09/10/17 Admission Dx/Problem (Free Text): Admission Diagnosis/Problem Admission Diagnosis/Problem Diverticulitis Subjective Update: Feeling better today, less bloated and passing gas, had BM overnight no blood noted. Has not had pain medication since last night. Had nausea with Cipro and refusing to take this, will trial Levaquin. No Chest pain or SOB. Functional Status: Reports: Pain Controlled, Ambulating, Urinating - Review of Systems General: Reports: No Symptoms. Denies: Fever HEENT: Reports: No Symptoms. Denies: Headaches, Sore Throat, Visual Changes Pulmonary: Reports: No Symptoms. Denies: Shortness of Breath, Cough, Sputum Cardiovascular: Reports: No Symptoms. Denies: Chest Pain, Palpitations, Edema Gastrointestinal: Reports: No Symptoms. Denies: Abdominal Pain, Diarrhea, Nausea, Vomiting Genitourinary: Reports: No Symptoms. Denies: Dysuria, Frequency, Burning Skin: Reports: No Symptoms Neurological: Reports: No Symptoms. Denies: Confusion Psychiatric: Reports: No Symptoms. Denies: Confusion - Patient Data Vitals - Most Recent: Last Vital Signs Temp 97.5 F 09/10/17 08:00 Pulse 65 09/10/17 08:00 Resp 22 H 09/10/17 08:00 BP 146/74 H 09/10/17 08:00 Pulse Ox 94 L 09/10/17 08:00 Weight - Most Recent: 90.718 kg I&O - Last 24 Hours: Intake & Output 09/09/17 09/10/17 09/10/17 22:59 06:59 14:59 Intake Total 680 130 Output Total 350 300 Balance 330 -170 Lab Results Last 24 Hours: Laboratory Results - last 24 hr 09/10/17 09/10/17 Range/Units 05:52 05:52 WBC 15.78 H (4.0-11.0) K/uL RBC 3.83 L (4.30-5.90) M/uL Hgb 11.4 L (12.0-16.0) g/dL Hct 36.1 (36.0-46.0) % MCV 94.3 (80.0-98.0) fL MCH 29.8 (27.0-32.0) pg MCHC 31.6 (31.0-37.0) g/dL RDW Std Deviation 47.7 (28.0-62.0) fl RDW Coeff of Jessika 14 (11.0-15.0) % Plt Count 259 (150-400) K/uL MPV 10.50 (7.40-12.00) fL Neut % (Auto) 84.9 H (48.0-80.0) % Lymph % (Auto) 9.3 L (16.0-40.0) % [place] % (Auto) 5.4 (0.0-15.0) % Eos % (Auto) 0.3 (0.0-7.0) % Baso % (Auto) 0.1 (0.0-1.5) % Neut # (Auto) 13.4 H (1.4-5.7) K/uL Lymph # (Auto) 1.5 (0.6-2.4) K/uL [place] # (Auto) 0.9 H (0.0-0.8) K/uL Eos # (Auto) 0.1 (0.0-0.7) K/uL Baso # (Auto) 0.0 (0.0-0.1) K/uL Nucleated RBC % 0.0 /100WBC Nucleated RBCs # 0 K/uL Sodium 140 (136-146) mmol/L Potassium 3.8 (3.5-5.1) mmol/L Chloride 112 H (98-110) mmol/L Carbon Dioxide 20 L (21-31) mmol/L BUN 18 (6.0-23.0) mg/dL Creatinine 0.8 (0.6-1.5) mg/dL Est Cr Clr Drug Dosing 63.09 mL/min Estimated GFR (MDRD) > 60.0 ml/min Glucose 101 (60-110) mg/dL Calcium 8.8 (8.8-10.8) mg/dL Ha Results Last 24 Hours: Microbiology 09/09/17 16:31 Campylobacter Antigen Assay - Final Stool / Feces - Stool, Formed NEGATIVE CAMPYLOBACTER AG 09/09/17 16:31 Stool for WBCs - Final Stool / Feces - Stool, Formed NEGATIVE FOR WBC'S 09/09/17 16:31 Stool Occult Blood (HA) - Final Stool / Feces - Stool, Formed NEGATIVE OCCULT BLOOD Med Orders - Current: Current Medications Acetaminophen (Tylenol) 650 mg PO Q4H PRN PRN Reason: Pain (Mild 1-3)/fever Last Admin: 09/08/17 20:21 Dose: 650 mg Alprazolam (Xanax) 0.25 mg PO BEDTIME PRN PRN Reason: Anxiety Clonidine HCl (Catapres) 0.1 mg PO Q8H PRN PRN Reason: Other Metronidazole 500 mg/ Premix 100 mls @ 100 mls/hr IV QID [facility] Last Admin: 09/10/17 06:07 Dose: 100 mls/hr Sodium Chloride (Normal Saline) 1,000 mls @ 125 mls/hr IV ASDIRECTED [facility] Last Admin: 09/10/17 00:35 Dose: 125 mls/hr Isosorbide Mononitrate (Imdur) 30 mg PO DAILY [facility] Last Admin: 09/09/17 10:54 Dose: 30 mg Ketorolac Tromethamine (Toradol) 30 mg IVPUSH Q6H PRN PRN Reason: Pain (moderate 4-6) Last Admin: 09/09/17 17:22 Dose: 30 mg Levothyroxine Sodium (Levothyroxine) 75 mcg PO ACBREAKFAST [facility] Lisinopril (Prinivil) 10 mg PO DAILY [facility] (Budesonide/Formoterol [id number] Mcg Patients Own Med 2 puff INH BID [facility] Last Admin: 09/09/17 20:26 Dose: 2 puff Ondansetron HCl (Zofran Odt) 4 mg PO Q4H PRN PRN Reason: nausea, able to take PO Last Admin: 09/10/17 01:14 Dose: 4 mg Ondansetron HCl (Zofran) 4 mg IVPUSH Q4H PRN PRN Reason: Nausea Last Admin: 09/10/17 00:30 Dose: 4 mg Pantoprazole Sodium (Protonix Iv) 40 mg IVPUSH Q24H [facility] Last Admin: 09/09/17 10:55 Dose: 40 mg Simethicone (Simethicone) 80 mg PO Q4H PRN PRN Reason: gas pains Last Admin: 09/09/17 20:19 Dose: 80 mg Discontinued Medications Alprazolam (Xanax) 0.25 mg PO ASDIRECTED PRN PRN Reason: Anxiety Fluticasone Propionate (Flovent Hfa 220 Mcg) 0 gm INH BIDRT LOB[facility] Last Admin: 09/09/17 09:16 Dose: Not Given Sodium Chloride (Normal Saline) 1,000 mls @ 999 mls/hr IV STAT ONE Stop: 09/08/17 17:43 Last Admin: 09/08/17 17:05 Dose: 999 mls/hr Ciprofloxacin/Dextrose 400 mg/ (Premix) 200 mls @ 200 mls/hr IV Q12H [facility] Last Admin: 09/08/17 22:07 Dose: Not Given Metronidazole 500 mg/ Premix 100 mls @ 100 mls/hr IV ONETIME ONE Stop: 09/08/17 19:59 Last Admin: 09/08/17 19:40 Dose: 100 mls/hr Sodium Chloride (Normal Saline) 1,000 mls @ 125 mls/hr IV STAT ONE Stop: 09/09/17 03:02 Last Admin: 09/08/17 19:40 Dose: 125 mls/hr Ciprofloxacin/Dextrose 400 mg/ (Premix) 200 mls @ 200 mls/hr IV Q12H [facility] Last Admin: 09/10/17 06:50 Dose: Not Given Sodium Chloride (Normal Saline) 1,000 mls @ 100 mls/hr IV ASDIRECTED [facility] Last Admin: 09/09/17 10:49 Dose: 100 mls/hr Magnesium Sulfate 2 gm/ Premix 50 mls @ 50 mls/hr IV ONETIME ONE Stop: 09/09/17 11:20 Last Admin: 09/09/17 10:59 Dose: 50 mls/hr Iopamidol (Isovue Multipack-370 (76%)) 100 ml IVPUSH ONETIME STA Stop: 09/08/17 17:38 Last Admin: 09/08/17 17:38 Dose: 100 ml Ketorolac Tromethamine (Toradol) 30 mg IVPUSH ONETIME ONE Stop: 09/08/17 16:44 Last Admin: 09/08/17 17:05 Dose: 30 mg Ketorolac Tromethamine (Toradol) 30 mg IM Q6H PRN PRN Reason: Pain (moderate 4-6) Last Admin: 09/08/17 21:56 Dose: 30 mg Levothyroxine Sodium (Synthroid) 75 mcg PO ACBREAKFAST [facility] Last Admin: 09/10/17 06:44 Dose: 75 mcg Non-Formulary Medication (Lisinopril/Hydrochlorothiazide [Lisinopril-Hctz 20- 12.5 Mg Tab]) 1 each PO DAILY [facility] Last Admin: 09/10/17 09:11 Dose: Not Given Ondansetron HCl (Zofran) 4 mg IVPUSH ONETIME ONE Stop: 09/08/17 16:44 Last Admin: 09/08/17 17:05 Dose: 4 mg Pantoprazole Sodium (Protonix) 40 mg PO DAILY [facility] Last Admin: 09/09/17 09:17 Dose: Not Given - Exam General: Alert, Oriented, Cooperative, No Acute Distress Lungs: Clear to Auscultation, Normal Respiratory Effort Cardiovascular: Regular Rate, Regular Rhythm GI/Abdominal Exam: Normal Bowel Sounds, Soft, Non-Tender, No Organomegaly, No Distention, No Abnormal Bruit, No Mass, Pelvis Stable Extremities: Normal Inspection, Normal Range of Motion, Non-Tender, No Pedal Edema, Normal Capillary Refill Neurological: No New Focal Deficit Psy/Mental Status: Alert, Normal Affect, Normal Mood - Problem List & Annotations (1) Diverticulitis of sigmoid colon SNOMED Code(s): 764379789 Code(s): K57.32 - DVTRCLI OF LG INT W/O PERFORATION OR ABSCESS W/O BLEEDING Status: Acute Current Visit: Yes (2) Abdominal pain SNOMED Code(s): 06379244 Code(s): R10.9 - UNSPECIFIED ABDOMINAL PAIN Status: Acute Current Visit: Yes Qualifiers: Abdominal location: left lower quadrant Qualified Code(s): R10.32 - Left lower quadrant pain (3) HTN (hypertension) SNOMED Code(s): 75484098 Code(s): I10 - ESSENTIAL (PRIMARY) HYPERTENSION Status: Chronic Priority : Low Current Visit: Yes Qualifiers: Hypertension type: essential hypertension Qualified Code(s): I10 - Essential (primary) hypertension (4) Rheumatoid arthritis SNOMED Code(s): 84412417 Code(s): M06.9 - RHEUMATOID ARTHRITIS, UNSPECIFIED Status: Chronic Priority: Low Current Visit: Yes Qualifiers: Rheumatoid factor presence: unspecified presence Laterality: unspecified laterality (5) History of asthma SNOMED Code(s): 711678057 Code(s): Z87.09 - PERSONAL HISTORY OF OTHER DISEASES OF THE RESPIRATORY SYSTEM Status: Chronic Current Visit: Yes - Problem List Review Problem List Initiated/Reviewed/Updated: Yes - My Orders Last 24 Hours: My Active Orders 09/09/17 10:30 Retroperitoneal Ltd [US] Routine 09/09/17 11:00 Pantoprazole [ProTONIX IV] 40 mg IVPUSH Q24H 09/09/17 15:27 Simethicone 80 mg PO Q4H PRN 09/09/17 15:28 Sodium Chloride 0.9% [Normal Saline] 1,000 ml IV ASDIRECTED 09/10/17 Lunch Clear Liquid Diet [DIET] - Plan Plan:: 67 year old female admitted 09/08/17 for leukocytosis possible colitis with pmh of htn, RA on Enbril, and asthma. 1. Diverticulitis: No pain this morning. Reports allergy to Cipro, with severe nausea and refuses to take this. discussed with her trialing Levaquin, she reports she would do this and monitor for symptoms. Continue Flagyl IV. Start CL today. Dr. Welch consulted. Stop IVFs today. 2. Htn: Stable, continue Imdur and Lisinopril. 3. RA: Stable. 4. Asthma: Stable. Restart home meds and monitor. VTE: Heparin Dispo: possible DC in am.
[2017-09-10] MEDS ORDERED: Levofloxacin/Dextrose 5%-Water 750 MG in Premix Bag 1 BAG IV SCH (10:30)
[2017-09-10] MEDS: Pantoprazole 40 MG Vial IVPUSH SCH (10:53)
--- NOTE | 2017-09-10 16:30 | US ---
EXAM DATE: 09/08/17 PATIENT'S AGE: 67 Patient: KENNY ARAMBULA Facility: [place], [place] Site . Site : 1950 Study: US Abdomen [id number] 2:25:05 PM Ordering Physician: Iam Rendon Final Report: INDICATION: Right renal lesion. TECHNIQUE: Ultrasound bilateral renal. Mccord-scale and color Doppler sonographic images were acquired of the kidneys and urinary bladder. COMPARISON: CT abdomen pelvis August 13, 2010 and September 08, 2017. FINDINGS: Right kidney: 10 cm. Left kidney: 10 cm. Normal echotexture and cortex. No masses, stones, or hydronephrosis. IMPRESSION: Unremarkable renal ultrasound. No sign of right renal mass on this exam. Dictated by Tod Izaguirre MD @ Sep 10 2017 7:20AM (Electronic Signature) Report Signed by Proxy. ANTONINA
--- NOTE | 2017-09-10 20:20 | PCM.SN ---
- Free Text/Narrative Note: Patient was stable overnight. Abdomen is less tender and less distended this morning. Ok to advance diet. Switch to oral antibiotics once WBC is in normal range. F/u in my clinic 2-4 weeks after discharge. Will sign off call with any questions or concerns.
[2017-09-10] MEDS: Simethicone 80 MG Tab.Chew PO PRN (20:44)
[2017-09-10] MEDS: Ketorolac 30 MG/ML SDV IVPUSH PRN (20:44)
[2017-09-11] MEDS: metroNIDAZOLE/Normal Saline 500 MG in Premix Bag 1 BAG IV SCH (05:15)
[2017-09-11 06:15] LABS: CHLORIDE,CL 112 mmol/L (98-110); SODIUM,NA 140 mmol/L (136-146)
[2017-09-11] MEDS ORDERED: Levothyroxine 75 MCG Tab PO SCH (07:30)
[2017-09-11] MEDS: Ondansetron 4 MG/2 ML SDV IVPUSH PRN (07:34)
[2017-09-11] MEDS ORDERED: Amoxicillin/Clavulanate K 875-125 MG Tab PO SCH (09:00)
[2017-09-11] MEDS: metroNIDAZOLE 250 MG Tab PO SCH ×2 (10:12→16:50)
[2017-09-11] MEDS: Lisinopril 10 MG Tab PO SCH (10:12)
[2017-09-11] MEDS: Isosorbide Mononitrate 30 MG Tab.ER PO SCH (10:13)
[2017-09-11] MEDS: Promethazine 25 MG Tab PO ONE ×2 (10:15→10:25)
[2017-09-11] MEDS: Pantoprazole 40 MG Vial IVPUSH SCH (11:42)
--- NOTE | 2017-09-11 11:45 | PCM.PN ---
- General Info Date of Service: 09/11/17 Admission Dx/Problem (Free Text): Admission Diagnosis/Problem Admission Diagnosis/Problem Diverticulitis Subjective Update: Belly pain has completely resolved. Has been feeling gaseous last evening. Simethicone and torodol did help but this morning feeling somewhat nauseated. Denies any current chest or abd pain. - Review of Systems General: Reports: Fatigue. Denies: Fever, Weakness, Malaise, Chills HEENT: Denies: Headaches, Visual Changes Pulmonary: Denies: Shortness of Breath, Hemoptysis Cardiovascular: Reports: Edema. Denies: Chest Pain, Palpitations Gastrointestinal: Reports: Nausea. Denies: Abdominal Pain, Diarrhea, Vomiting Genitourinary: Denies: Dysuria, Hematuria Musculoskeletal: Denies: Neck Pain, Leg Pain Skin: Denies: Cyanosis Neurological: Denies: Confusion, Dizziness, Headache Psychiatric: Denies: Confusion - Patient Data Vitals - Most Recent: Last Vital Signs Temp 97.9 F 09/11/17 08:00 Pulse 72 09/11/17 08:00 Resp 18 09/11/17 08:00 BP 169/73 H 09/11/17 10:13 Pulse Ox 93 L 09/11/17 08:00 Weight - Most Recent: 90.718 kg I&O - Last 24 Hours: Intake & Output 09/10/17 09/11/17 09/11/17 22:59 06:59 14:59 Intake Total 350 400 Output Total 400 Balance 350 0 Lab Results Last 24 Hours: Laboratory Results - last 24 hr 09/11/17 09/11/17 Range/Units 05:42 05:42 WBC 11.55 H (4.0-11.0) K/uL RBC 3.55 L (4.30-5.90) M/uL Hgb 10.6 L (12.0-16.0) g/dL Hct 33.8 L (36.0-46.0) % MCV 95.2 (80.0-98.0) fL MCH 29.9 (27.0-32.0) pg MCHC 31.4 (31.0-37.0) g/dL RDW Std Deviation 48.0 (28.0-62.0) fl RDW Coeff of Jessika 14 (11.0-15.0) % Plt Count 247 (150-400) K/uL MPV 10.60 (7.40-12.00) fL Neut % (Auto) 76.5 (48.0-80.0) % Lymph % (Auto) 14.2 L (16.0-40.0) % [place] % (Auto) 7.1 (0.0-15.0) % Eos % (Auto) 2.0 (0.0-7.0) % Baso % (Auto) 0.2 (0.0-1.5) % Neut # (Auto) 8.8 H (1.4-5.7) K/uL Lymph # (Auto) 1.6 (0.6-2.4) K/uL [place] # (Auto) 0.8 (0.0-0.8) K/uL Eos # (Auto) 0.2 (0.0-0.7) K/uL Baso # (Auto) 0.0 (0.0-0.1) K/uL Nucleated RBC % 0.0 /100WBC Nucleated RBCs # 0 K/uL Sodium 140 (136-146) mmol/L Potassium 3.6 (3.5-5.1) mmol/L Chloride 112 H (98-110) mmol/L Carbon Dioxide 20 L (21-31) mmol/L BUN 18 (6.0-23.0) mg/dL Creatinine 0.8 (0.6-1.5) mg/dL Est Cr Clr Drug Dosing 63.09 mL/min Estimated GFR (MDRD) > 60.0 ml/min Glucose 92 (60-110) mg/dL Calcium 8.7 L (8.8-10.8) mg/dL Ha Results Last 24 Hours: Microbiology 09/09/17 16:31 Campylobacter Antigen Assay - Final Stool / Feces - Stool, Formed NEGATIVE CAMPYLOBACTER AG - Final NEGATIVE FOR SHIGA TOXIN 1 - Final NEGATIVE FOR SHIGA TOXIN 2 Med Orders - Current: Current Medications Acetaminophen (Tylenol) 650 mg PO Q4H PRN PRN Reason: Pain (Mild 1-3)/fever Last Admin: 09/08/17 20:21 Dose: 650 mg Alprazolam (Xanax) 0.25 mg PO BEDTIME PRN PRN Reason: Anxiety Amoxicillin/Clavulanate Potassium (Augmentin 875 Mg/125 Mg) 1 tab PO Q12HR LOBO Last Admin: 09/11/17 10:13 Dose: 1 tab Clonidine HCl (Catapres) 0.1 mg PO Q8H PRN PRN Reason: Other Isosorbide Mononitrate (Imdur) 30 mg PO DAILY [facility] Last Admin: 09/11/17 10:13 Dose: 30 mg Ketorolac Tromethamine (Toradol) 30 mg IVPUSH Q6H PRN PRN Reason: Pain (moderate 4-6) Last Admin: 09/10/17 20:44 Dose: 30 mg Levothyroxine Sodium (Levothyroxine) 75 mcg PO ACBREAKFAST [facility] Last Admin: 09/11/17 06:30 Dose: 75 mcg Lisinopril (Prinivil) 10 mg PO DAILY [facility] Last Admin: 09/11/17 10:12 Dose: Not Given Metronidazole (Metronidazole) 500 mg PO Q8H [facility] Last Admin: 09/11/17 10:12 Dose: 500 mg (Budesonide/Formoterol Xbluapro572-7.5 Mcg Patients Own Med 2 puff INH BID [facility] Last Admin: 09/11/17 10:11 Dose: Not Given Ondansetron HCl (Zofran Odt) 4 mg PO Q4H PRN PRN Reason: nausea, able to take PO Last Admin: 09/10/17 01:14 Dose: 4 mg Ondansetron HCl (Zofran) 4 mg IVPUSH Q4H PRN PRN Reason: Nausea Last Admin: 09/11/17 07:34 Dose: 4 mg Pantoprazole Sodium (Protonix Iv) 40 mg IVPUSH Q24H [facility] Last Admin: 09/11/17 11:42 Dose: 40 mg Simethicone (Simethicone) 80 mg PO Q4H PRN PRN Reason: gas pains Last Admin: 09/10/17 20:44 Dose: 80 mg Discontinued Medications Alprazolam (Xanax) 0.25 mg PO ASDIRECTED PRN PRN Reason: Anxiety Fluticasone Propionate (Flovent Hfa 220 Mcg) 0 gm INH BIDRT [facility] Last Admin: 09/09/17 09:16 Dose: Not Given Sodium Chloride (Normal Saline) 1,000 mls @ 999 mls/hr IV STAT ONE Stop: 09/08/17 17:43 Last Admin: 09/08/17 17:05 Dose: 999 mls/hr Ciprofloxacin/Dextrose 400 mg/ (Premix) 200 mls @ 200 mls/hr IV Q12H [facility] Last Admin: 09/08/17 22:07 Dose: Not Given Metronidazole 500 mg/ Premix 100 mls @ 100 mls/hr IV ONETIME ONE Stop: 09/08/17 19:59 Last Admin: 09/08/17 19:40 Dose: 100 mls/hr Sodium Chloride (Normal Saline) 1,000 mls @ 125 mls/hr IV STAT ONE Stop: 09/09/17 03:02 Last Admin: 09/08/17 19:40 Dose: 125 mls/hr Ciprofloxacin/Dextrose 400 mg/ (Premix) 200 mls @ 200 mls/hr IV Q12H [facility] Last Admin: 09/10/17 06:50 Dose: Not Given Metronidazole 500 mg/ Premix 100 mls @ 100 mls/hr IV QID [facility] Last Admin: 09/11/17 05:15 Dose: 100 mls/hr Sodium Chloride (Normal Saline) 1,000 mls @ 100 mls/hr IV ASDIRECTED [facility] Last Admin: 09/09/17 10:49 Dose: 100 mls/hr Magnesium Sulfate 2 gm/ Premix 50 mls @ 50 mls/hr IV ONETIME ONE Stop: 09/09/17 11:20 Last Admin: 09/09/17 10:59 Dose: 50 mls/hr Sodium Chloride (Normal Saline) 1,000 mls @ 125 mls/hr IV ASDIRECTED [facility] Last Admin: 09/10/17 00:35 Dose: 125 mls/hr Levofloxacin/Dextrose 750 mg/ (Premix) 150 mls @ 100 mls/hr IV Q24H [facility] Last Admin: 09/10/17 10:57 Dose: 100 mls/hr Iopamidol (Isovue Multipack-370 (76%)) 100 ml IVPUSH ONETIME STA Stop: 09/08/17 17:38 Last Admin: 09/08/17 17:38 Dose: 100 ml Ketorolac Tromethamine (Toradol) 30 mg IVPUSH ONETIME ONE Stop: 09/08/17 16:44 Last Admin: 09/08/17 17:05 Dose: 30 mg Ketorolac Tromethamine (Toradol) 30 mg IM Q6H PRN PRN Reason: Pain (moderate 4-6) Last Admin: 09/08/17 21:56 Dose: 30 mg Levothyroxine Sodium (Synthroid) 75 mcg PO ACBREAKFAST [facility] Last Admin: 09/10/17 06:44 Dose: 75 mcg Non-Formulary Medication (Lisinopril/Hydrochlorothiazide [Lisinopril-Hctz 20- 12.5 Mg Tab]) 1 each PO DAILY [facility] Last Admin: 09/10/17 09:11 Dose: Not Given Ondansetron HCl (Zofran) 4 mg IVPUSH ONETIME ONE Stop: 09/08/17 16:44 Last Admin: 09/08/17 17:05 Dose: 4 mg Pantoprazole Sodium (Protonix) 40 mg PO DAILY [facility] Last Admin: 09/09/17 09:17 Dose: Not Given Promethazine HCl (Phenergan) 25 mg PO ONETIME ONE Stop: 09/11/17 09:27 Last Admin: 09/11/17 10:25 Dose: 25 mg - Exam Quality Assessment: DVT Prophylaxis General: Alert, Oriented, Cooperative, No Acute Distress HEENT: Pupils Equal, Pupils Reactive, EOMI, Mucous Membr. Moist/[place] Neck: Supple, Trachea Midline Lungs: Clear to Auscultation, Normal Respiratory Effort Cardiovascular: Regular Rate, Regular Rhythm GI/Abdominal Exam: Normal Bowel Sounds, Soft, Non-Tender, No Organomegaly, No Distention Back Exam: Normal Inspection Extremities: Normal Inspection, Non-Tender, No Pedal Edema, Normal Capillary Refill Peripheral Pulses: 2+: Radial (L), Radial (R), Posterior Tibial (L), Posterior Tibial (R), Dorsalis Pedis (L), Dorsalis Pedis (R) Skin: Warm, Dry, Intact Neurological: No New Focal Deficit Psy/Mental Status: Alert, Normal Affect, Normal Mood - Problem List & Annotations (1) HTN (hypertension) SNOMED Code(s): 10944127 Code(s): I10 - ESSENTIAL (PRIMARY) HYPERTENSION Status: Chronic Priority : Low Current Visit: Yes Qualifiers: Hypertension type: essential hypertension Qualified Code(s): I10 - Essential (primary) hypertension (2) Rheumatoid arthritis SNOMED Code(s): 73750037 Code(s): M06.9 - RHEUMATOID ARTHRITIS, UNSPECIFIED Status: Chronic Priority: Low Current Visit: Yes Qualifiers: Rheumatoid factor presence: unspecified presence Laterality: unspecified laterality (3) Abdominal pain SNOMED Code(s): 35859623 Code(s): R10.9 - UNSPECIFIED ABDOMINAL PAIN Status: Resolved Priority: High Current Visit: Yes Qualifiers: Abdominal location: left lower quadrant Qualified Code(s): R10.32 - Left lower quadrant pain (4) Leukocytosis SNOMED Code(s): 070320715 Code(s): D72.829 - ELEVATED WHITE BLOOD CELL COUNT, UNSPECIFIED Status: Acute Priority: High Current Visit: Yes Qualifiers: Leukocytosis type: unspecified Qualified Code(s): D72.829 - Elevated white blood cell count, unspecified - Problem List Review Problem List Initiated/Reviewed/Updated: Yes - My Orders Last 24 Hours: My Active Orders 09/11/17 07:30 Levothyroxine 75 mcg PO ACBREAKFAST 09/11/17 08:00 metroNIDAZOLE 500 mg PO Q8H 09/11/17 09:00 Amoxicillin/Clavulanate K [Augmentin 875 MG/125 MG] 1 tab PO Q12HR 09/12/17 05:11 BASIC METABOLIC PANEL,BMP [CHEM] AM CBC WITH AUTO DIFF [HEME] AM - Plan Plan:: 67 year old female admitted 09/08/17 for leukocytosis secondary to diverticulitis with pmh of htn, RA on Enbril, and asthma. 1. Diverticulitis: No pain again this morning. Patient became nauseated with Cipro and Flagyl but did receive full doses on previous 2 days. Will switch to oral Flagyl and Augmentin today. Will give phenergan for nausea. WBC down form 16K to 11k today. If patient able to tolerate oral intake may plan for discharge later this afternoon. 2. Htn: Stable, continue Imdur and Lisinopril. 3. RA: Stable. 4. Asthma: Stable. Restart home meds and monitor. VTE: Heparin, SCD Dispo: This afternoon or tomorrow am pending oral intake
[2017-09-11 16:03] VITALS: BP 153/75
--- NOTE | 2017-09-11 16:38 | PCM.DCSUM1 ---
Discharge Summary - Hospital Course HPI Initial Comments: 67 yo female admitted 09/08/17 for leukocytosis found to be secondary to diverticulitis with pmh of htn, RA on Enbril, and asthma. Brief History: Patient stated that her abdominal pain started early on morning of admission and was located primarily in the lower middle and left lower quadrant. It was "crampy" and constant. She had associated nausea and vomiting. Also reported 6 soft stools. She denied any bloody or tarry stools. She had a previous episode of "colitis" approximately 8 years ago with no subsequent episodes. She did have a recent colonscopy which was normal. She denied any foreign travel or other people in her home having similar symptoms. She did report that she ate at "[employer]" the evening before. No other members ate with her. She has had her gallbladder removed but still has her appendix. - Discharge Data Discharge Date: 09/11/17 Discharge Disposition: Home, Self-Care 01 Condition: Good - Discharge Diagnosis/Problem(s) (1) HTN (hypertension) SNOMED Code(s): 91240874 ICD Code: I10 - ESSENTIAL (PRIMARY) HYPERTENSION Status: Chronic Priority : Low Current Visit: Yes Qualifiers: Hypertension type: essential hypertension Qualified Code(s): I10 - Essential (primary) hypertension (2) Rheumatoid arthritis SNOMED Code(s): 14309025 ICD Code: M06.9 - RHEUMATOID ARTHRITIS, UNSPECIFIED Status: Chronic Priority: Low Current Visit: Yes Qualifiers: Rheumatoid factor presence: unspecified presence Laterality: unspecified laterality (3) Abdominal pain SNOMED Code(s): 23783687 ICD Code: R10.9 - UNSPECIFIED ABDOMINAL PAIN Status: Resolved Priority: High Current Visit: Yes Qualifiers: Abdominal location: left lower quadrant Qualified Code(s): R10.32 - Left lower quadrant pain (4) Leukocytosis SNOMED Code(s): 248363078 ICD Code: D72.829 - ELEVATED WHITE BLOOD CELL COUNT, UNSPECIFIED Status: Resolved Priority: High Current Visit: Yes Qualifiers: Leukocytosis type: unspecified Qualified Code(s): D72.829 - Elevated white blood cell count, unspecified - Patient Summary/Data Consults: Consultations 09/09/17 08:07 Consult to Physician [CONS] Routine Hospital Course: In the ED she was found to have leukocytosis of 22,000. She was afebrile and blood cultures were taken which remained negative throughout her stay. CT with contrast of the abdomen diverticulitis and a new 1 cm hyperdense right renal lesion at the anterior aspect of the midkidney. A solid renal lesion could not be excluded and it was recommended that a renal ultrasound or renal CT for further evaluation was preformed. We did do a renal ultrasound that did not identify the lesion so would suggest further renal CT as an outpatient to clarify that the lesion was not a solid mass. Patient was admitted and initially started on Cipro, Flagyl, made NPO, and Dr. Vigil surgery was consulted. Leukocytosis improved but patient had nausea with Cipro so on second day this was switched to Levaquin. Patient intially tolerated the Levaquin but then had subsequent nausea. On third day of admission Leukocytosis had mostly resolved and patient was tolerating oral diet. She was started on oral Augmentin and Flagyl and was able to tolerate. For patient's nausea she was intially treated with zofran but had no improvement so was switched to phenergan which resolved the nausea. The rest of the patient's stay was uneventful with progressive improvement. On day of discharge she was in good condition and requesting to go home. She was discharged with a prescription for Flagyl x5 days, Augmentin x5 days, Protonix, and Phenergan. She was also scheduled follow-up appointments with PCP Ekta Chambers and Dr. Vigil, surgeon. Patient was instructed to return to ED if she had return of her symtoms. - Patient Instructions Diet: GI Soft/Low Residue/Low Fiber Activity: Rest and Relax Today Driving: Do Not Drive Showering/Bathing: May Shower Notify Provider of: Fever, Increased Pain, Nausea and/or Vomiting Other/Special Instructions: Slowly increase diet. Start with bland diet and stay away from heavy fatty foods. Progress slowly as tolerated. Follow-up with PCP Ekta Chambers and Dr. Vigil, surgeon on 09/24/17. Return to ED if return or worsening symptoms. - Discharge Plan Prescriptions/Med Rec: Amoxicillin/Clavulanate K [Augmentin 875 MG/125 MG] 1 tab PO Q12HR 5 Days #10 tablet metroNIDAZOLE 500 mg PO Q8H 5 Days #15 tablet Pantoprazole [ProTONIX] 40 mg PO DAILY #14 tab.cr Promethazine [Phenergan] 25 mg PO Q6H #12 tablet Home Medications: Home Meds ALPRAZolam [Xanax] 0.25 mg PO ASDIRECTED PRN 01/14/17 [History] Isosorbide Mononitrate [Isosorbide Mononitrate ER] 30 mg PO DAILY 01/14/17 [ History] Levothyroxine [Synthroid] 75 mcg PO ACBREAKFAST 01/14/17 [History] Albuterol Sulfate [Proair Respiclick] 2 puff IH Q6HR 01/27/17 [History] Cholecalciferol (Vitamin D3) [D3-2000] 1,000 unit PO DAILY 01/27/17 [History] Etanercept [Enbrel] 50 mg SQ WEEKLY 01/27/17 [History] Fluticasone Propionate [Flovent HFA 220 mcg] 2 puff INH BID 01/27/17 [History] Lisinopril/Hydrochlorothiazide [Lisinopril-Hctz 20-12.5 mg Tab] 1 each PO DAILY 01/27/17 [History] Prednisone [IJD: predniSONE] 20 mg PO WITHBREAKFAST #8 tablet 01/30/17 [Rx] cloNIDine [Catapres] 0.1 mg PO Q8H PRN #8 tablet 01/30/17 [Rx] methylPREDNISolone [Medrol] 4 mg PO ASDIRECTED #1 dosepk 06/23/17 [Rx] Budesonide/Formoterol Fumarate [Symbicort 160-4.5 Mcg Inhaler] 2 puff INH BID [History] Amoxicillin/Clavulanate K [Augmentin 875 MG/125 MG] 1 tab PO Q12HR 5 Days #10 tablet 09/11/17 [Rx] Pantoprazole [ProTONIX] 40 mg PO DAILY #14 tab.cr 09/11/17 [Rx] Promethazine [Phenergan] 25 mg PO Q6H #12 tablet 09/11/17 [Rx] metroNIDAZOLE 500 mg PO Q8H 5 Days #15 tablet 09/11/17 [Rx] Patient Handouts: Amoxicillin; Clavulanic Acid tablets, Leukocytosis, Abdominal Pain, Adult, [id number], Promethazine tablets, Nausea and Vomiting, Adult, Pantoprazole tablets, Metronidazole tablets or capsules Referrals: Michael Chambers [Primary Care Provider] - (Patient will call for appointment to Michael Bates after 1 week. ) Brittaney Welch MD [Physician] - 09/24/17 1:30 pm - Discharge Summary/Plan Comment DC Time >30 min.: Yes Discharge Summary/Plan Comment: 67 yo female admitted 09/08/17 for leukocytosis found to be secondary to diverticulitis with pmh of htn, RA on Enbril, and asthma. Patient stated that her abdominal pain started early on morning of admission and was located primarily in the lower middle and left lower quadrant. It was "crampy" and constant. She had associated nausea and vomiting. Also reported 6 soft stools. She denied any bloody or tarry stools. She had a previous episode of "colitis" approximately 8 years ago with no subsequent episodes. She did have a recent colonscopy which was normal. She denied any foreign travel or other people in her home having similar symptoms. She did report that she ate at [employer]" the evening before. No other members ate with her. She has had her gallbladder removed but still has her appendix. In the ED she was found to have leukocytosis of 22,000. She was afebrile and blood cultures were taken which remained negative throughout her stay. CT with contrast of the abdomen diverticulitis and a new 1 cm hyperdense right renal lesion at the anterior aspect of the midkidney. A solid renal lesion could not be excluded and it was recommended that a renal ultrasound or renal CT for further evaluation was preformed. We did do a renal ultrasound that did not identify the lesion so would suggest further renal CT as an outpatient to clarify that the lesion was not a solid mass. Patient was admitted and initially started on Cipro, Flagyl, made NPO, and Dr. Vigil surgery was consulted. Leukocytosis improved but patient had nausea with Cipro so on second day this was switched to Levaquin. Patient intially tolerated the Levaquin but then had subsequent nausea. On third day of admission Leukocytosis had mostly resolved and patient was tolerating oral diet. She was started on oral Augmentin and Flagyl and was able to tolerate. For patient's nausea she was intially treated with zofran but had no improvement so was switched to phenergan which resolved the nausea. The rest of the patient's stay was uneventful with progressive improvement. On day of discharge she was in good condition and requesting to go home. She was discharged with a prescription for Flagyl x5 days, Augmentin x5 days, Protonix, and Phenergan. She was also scheduled follow-up appointments with PCP Ekta Chambers and Dr. Vigil, surgeon. Patient was instructed to return to ED if she had return of her symtoms. - General Info Date of Service: 09/11/17 Admission Dx/Problem (Free Text: Admission Diagnosis/Problem Admission Diagnosis/Problem Diverticulitis Subjective Update: Doing much better. Phenergan has relieved all nausea and she is now tolerating full diet. She was able to tolerate oral flagyl and augmentin. Having no abd pain. Wishing to go home. - Review of Systems General: Denies: Fever, Weakness, Fatigue, Chills HEENT: Denies: Headaches, Visual Changes Pulmonary: Denies: Shortness of Breath, Hemoptysis, Wheezing Cardiovascular: Denies: Chest Pain, Palpitations Gastrointestinal: Denies: Abdominal Pain, Constipation, Flatus, Hematochezia Genitourinary: Denies: Dysuria, Hematuria Musculoskeletal: Denies: Neck Pain, Leg Pain Skin: Denies: Cyanosis Neurological: Denies: Confusion, Dizziness Psychiatric: Denies: Confusion - Patient Data Vitals - Most Recent: Last Vital Signs Temp 97.8 F 09/11/17 16:00 Pulse 68 09/11/17 16:00 Resp 18 09/11/17 16:00 BP 153/75 H 09/11/17 16:00 Pulse Ox 95 09/11/17 16:00 Weight - Most Recent: 90.718 kg I&O - Last 24 hours: Intake & Output 09/11/17 09/11/17 09/11/17 06:59 14:59 22:59 Intake Total 400 Output Total 400 Balance 0 Lab Results - Last 24 hrs: Laboratory Results - last 24 hr 09/11/17 09/11/17 Range/Units 05:42 05:42 WBC 11.55 H (4.0-11.0) K/uL RBC 3.55 L (4.30-5.90) M/uL Hgb 10.6 L (12.0-16.0) g/dL Hct 33.8 L (36.0-46.0) % MCV 95.2 (80.0-98.0) fL MCH 29.9 (27.0-32.0) pg MCHC 31.4 (31.0-37.0) g/dL RDW Std Deviation 48.0 (28.0-62.0) fl RDW Coeff of Jessika 14 (11.0-15.0) % Plt Count 247 (150-400) K/uL MPV 10.60 (7.40-12.00) fL Neut % (Auto) 76.5 (48.0-80.0) % Lymph % (Auto) 14.2 L (16.0-40.0) % Callahan % (Auto) 7.1 (0.0-15.0) % Eos % (Auto) 2.0 (0.0-7.0) % Baso % (Auto) 0.2 (0.0-1.5) % Neut # (Auto) 8.8 H (1.4-5.7) K/uL Lymph # (Auto) 1.6 (0.6-2.4) K/uL Callahan # (Auto) 0.8 (0.0-0.8) K/uL Eos # (Auto) 0.2 (0.0-0.7) K/uL Baso # (Auto) 0.0 (0.0-0.1) K/uL Nucleated RBC % 0.0 /100WBC Nucleated RBCs # 0 K/uL Sodium 140 (136-146) mmol/L Potassium 3.6 (3.5-5.1) mmol/L Chloride 112 H (98-110) mmol/L Carbon Dioxide 20 L (21-31) mmol/L BUN 18 (6.0-23.0) mg/dL Creatinine 0.8 (0.6-1.5) mg/dL Est Cr Clr Drug Dosing 63.09 mL/min Estimated GFR (MDRD) > 60.0 ml/min Glucose 92 (60-110) mg/dL Calcium 8.7 L (8.8-10.8) mg/dL JESÚS Results - Last 24 hrs: Microbiology 09/09/17 16:31 Campylobacter Antigen Assay - Final Stool / Feces - Stool, Formed NEGATIVE CAMPYLOBACTER AG - Final NEGATIVE FOR SHIGA TOXIN 1 - Final NEGATIVE FOR SHIGA TOXIN 2 Med Orders - Current: Current Medications Acetaminophen (Tylenol) 650 mg PO Q4H PRN PRN Reason: Pain (Mild 1-3)/fever Last Admin: 09/08/17 20:21 Dose: 650 mg Alprazolam (Xanax) 0.25 mg PO BEDTIME PRN PRN Reason: Anxiety Amoxicillin/Clavulanate Potassium (Augmentin 875 Mg/125 Mg) 1 tab PO Q12HR [facility] Last Admin: 09/11/17 10:13 Dose: 1 tab Clonidine HCl (Catapres) 0.1 mg PO Q8H PRN PRN Reason: Other Isosorbide Mononitrate (Imdur) 30 mg PO DAILY [facility] Last Admin: 09/11/17 10:13 Dose: 30 mg Ketorolac Tromethamine (Toradol) 30 mg IVPUSH Q6H PRN PRN Reason: Pain (moderate 4-6) Last Admin: 09/10/17 20:44 Dose: 30 mg Levothyroxine Sodium (Levothyroxine) 75 mcg PO ACBREAKFAST [facility] Last Admin: 09/11/17 06:30 Dose: 75 mcg Lisinopril (Prinivil) 10 mg PO DAILY [facility] Last Admin: 09/11/17 10:12 Dose: Not Given Metronidazole (Metronidazole) 500 mg PO Q8H [facility] Last Admin: 09/11/17 10:12 Dose: 500 mg (Budesonide/Formoterol [id number] Mcg Patients Own Med 2 puff INH BID [facility] Last Admin: 09/11/17 10:11 Dose: Not Given Ondansetron HCl (Zofran Odt) 4 mg PO Q4H PRN PRN Reason: nausea, able to take PO Last Admin: 09/10/17 01:14 Dose: 4 mg Ondansetron HCl (Zofran) 4 mg IVPUSH Q4H PRN PRN Reason: Nausea Last Admin: 09/11/17 07:34 Dose: 4 mg Pantoprazole Sodium (Protonix Iv) 40 mg IVPUSH Q24H [facility] Last Admin: 09/11/17 11:42 Dose: 40 mg Simethicone (Simethicone) 80 mg PO Q4H PRN PRN Reason: gas pains Last Admin: 09/10/17 20:44 Dose: 80 mg Discontinued Medications Alprazolam (Xanax) 0.25 mg PO ASDIRECTED PRN PRN Reason: Anxiety Fluticasone Propionate (Flovent Hfa 220 Mcg) 0 gm INH BIDRT [facility] Last Admin: 09/09/17 09:16 Dose: Not Given Sodium Chloride (Normal Saline) 1,000 mls @ 999 mls/hr IV STAT ONE Stop: 09/08/17 17:43 Last Admin: 09/08/17 17:05 Dose: 999 mls/hr Ciprofloxacin/Dextrose 400 mg/ (Premix) 200 mls @ 200 mls/hr IV Q12H [facility] Last Admin: 09/08/17 22:07 Dose: Not Given Metronidazole 500 mg/ Premix 100 mls @ 100 mls/hr IV ONETIME ONE Stop: 09/08/17 19:59 Last Admin: 09/08/17 19:40 Dose: 100 mls/hr Sodium Chloride (Normal Saline) 1,000 mls @ 125 mls/hr IV STAT ONE Stop: 09/09/17 03:02 Last Admin: 09/08/17 19:40 Dose: 125 mls/hr Ciprofloxacin/Dextrose 400 mg/ (Premix) 200 mls @ 200 mls/hr IV Q12H [facility] Last Admin: 09/10/17 06:50 Dose: Not Given Metronidazole 500 mg/ Premix 100 mls @ 100 mls/hr IV QID [facility] Last Admin: 09/11/17 05:15 Dose: 100 mls/hr Sodium Chloride (Normal Saline) 1,000 mls @ 100 mls/hr IV ASDIRECTED [facility] Last Admin: 09/09/17 10:49 Dose: 100 mls/hr Magnesium Sulfate 2 gm/ Premix 50 mls @ 50 mls/hr IV ONETIME ONE Stop: 09/09/17 11:20 Last Admin: 09/09/17 10:59 Dose: 50 mls/hr Sodium Chloride (Normal Saline) 1,000 mls @ 125 mls/hr IV ASDIRECTED [facility] Last Admin: 09/10/17 00:35 Dose: 125 mls/hr Levofloxacin/Dextrose 750 mg/ (Premix) 150 mls @ 100 mls/hr IV Q24H [facility] Last Admin: 09/10/17 10:57 Dose: 100 mls/hr Iopamidol (Isovue Multipack-370 (76%)) 100 ml IVPUSH ONETIME STA Stop: 09/08/17 17:38 Last Admin: 09/08/17 17:38 Dose: 100 ml Ketorolac Tromethamine (Toradol) 30 mg IVPUSH ONETIME ONE Stop: 09/08/17 16:44 Last Admin: 09/08/17 17:05 Dose: 30 mg Ketorolac Tromethamine (Toradol) 30 mg IM Q6H PRN PRN Reason: Pain (moderate 4-6) Last Admin: 09/08/17 21:56 Dose: 30 mg Levothyroxine Sodium (Synthroid) 75 mcg PO ACBREAKFAST [facility] Last Admin: 09/10/17 06:44 Dose: 75 mcg Non-Formulary Medication (Lisinopril/Hydrochlorothiazide [Lisinopril-Hctz 20- 12.5 Mg Tab]) 1 each PO DAILY [facility] Last Admin: 09/10/17 09:11 Dose: Not Given Ondansetron HCl (Zofran) 4 mg IVPUSH ONETIME ONE Stop: 09/08/17 16:44 Last Admin: 09/08/17 17:05 Dose: 4 mg Pantoprazole Sodium (Protonix) 40 mg PO DAILY [facility] Last Admin: 09/09/17 09:17 Dose: Not Given Promethazine HCl (Phenergan) 25 mg PO ONETIME ONE Stop: 09/11/17 09:27 Last Admin: 09/11/17 10:25 Dose: 25 mg - Exam Quality Assessment: Reports: DVT Prophylaxis General: Reports: Alert, Oriented, Cooperative, No Acute Distress HEENT: Reports: Pupils Equal, Pupils Reactive, EOMI, Mucous Membr. Moist/[place] Neck: Reports: Supple Lungs: Reports: Clear to Auscultation, Normal Respiratory Effort Cardiovascular: Reports: Regular Rate, Regular Rhythm GI/Abdominal Exam: Normal Bowel Sounds, Soft, Non-Tender, No Organomegaly, No Distention, No Mass Back Exam: Reports: Normal Inspection Extremities: Normal Inspection, Non-Tender, Normal Capillary Refill, Pedal Edema Skin: Reports: Warm, Dry, Intact Wound/Incisions: Reports: Healing Well Neurological: Reports: No New Focal Deficit Psy/Mental Status: Reports: Alert, Normal Affect, Normal Mood *Q Meaningful Use (DIS) - VTE *Q VTE Criteria *Q: - Stroke *Q Stroke Criteria *Q: - AMI *Q AMI Criteria *Q:
== END 2017-09-11 17:15 | disposition home or self-care (01) | DRG 392 ==
LOC: MW.ED 16:19 → MW.MS 19:04 → MW.OB 09-09 09:25
PROVIDERS: ADMIT Family Medicine; ATTEND Family Medicine
DX: R10.9 Unspecified abdominal pain (principal); K57.32 Diverticulitis of large intestine without perforation or abscess without bleeding; R10.32 Left lower quadrant pain; F41.8 Other specified anxiety disorders; D72.829 Elevated white blood cell count, unspecified; I10 Essential (primary) hypertension; M06.9 Rheumatoid arthritis, unspecified; Z88.8 Allergy status to other drugs, medicaments and biological substances; R11.0 Nausea; Z79.899 Other long term (current) drug therapy; Z88.5 Allergy status to narcotic agent; Z88.2 Allergy status to sulfonamides; F32.9 Major depressive disorder, single episode, unspecified; E03.9 Hypothyroidism, unspecified; J45.909 Unspecified asthma, uncomplicated; R93.421 Abnormal radiologic findings on diagnostic imaging of right kidney
CPT/HCPCS: 74177; 80053; 81001; 82150; 83605; 83690; 85025; 87040 ×2; 87086; 96361; 96375; 99285; J1885; J2405; J7040; Q9967; 36415; 76775; 76775-26; 80048; 82272; 83630; 83735; 84100; 87046; 87899; 96365; 96374; 99284; A9270-GY; C9113; J0744; J1956; J3475

== ENCOUNTER 2020-04-26 09:57 | Inpatient (IN) | payer MEDICARE, OTHER ==
--- NOTE | 2020-04-26 10:02 | EDM.PDOC ---
ED HPI GENERAL MEDICAL PROBLEM - General Chief Complaint: General Stated Complaint: SENT BY JESUSRI Time Seen by Provider: 04/26/20 10:00 Source of Information: Reports: Patient History Limitations: Reports: No Limitations - History of Present Illness INITIAL COMMENTS - FREE TEXT/NARRATIVE: HISTORY AND PHYSICAL: History of present illness: Patient is a 69 year old female who presents to the ED with c/o abdominal pain, nausea and vomiting. Patient was initially seen at [facility] for some abdominal pain on 03/23/2010. Initially she was diagnosed with constipation and was given recommendation for [id number] products to help have a bowel movement. She states that she was able to have a normal bowel movement shortly after but continued to have some generalized abdominal pain. She was seen again at the clinic and had been placed on Cipro and Flagyl. When she got home she realized that she has the allergy to Cipro and decided to just take the Flagyl. She continues to have left lower abdominal pain which she describes as "crampy and sharp". Has had nausea and vomiting and generally feeling unwell over the past 2 to 3 days. Dates she feels light headed and subjective fever/chills. She called her primary care provider for further recommendation and they requested she come to the emergency room for evaluation. Patient denies any change in vision, syncope or near syncope. Denies any chest pain, back pain, shortness of breath or cough. Denies any diarrhea, constipation or dysuria. Has not noted any blood in urine or stool. Patient has been eating and drinking appropriately. Past medical history of hypertension, bronchitis, rheumatoid arthritis (on Remicade), anxiety, depression, hypothyroid, and diverticulitis. Review of systems: As per history of present illness and below otherwise all systems reviewed and negative. Past medical history: As per history of present illness and as reviewed below otherwise noncontributory. Surgical history: As per history of present illness and as reviewed below otherwise noncontributory. Social history: See social history for further information Family history: As per history of present illness and as reviewed below otherwise noncontributory. Physical exam: General: Well-developed and well-nourished 69-year-old female. Alert and oriented. Nontoxic-appearing and in no acute distress. HEENT: Atraumatic, normocephalic, pupils equal and reactive bilaterally, negative for conjunctival pallor or scleral icterus, mucous membranes moist, TMs normal bilaterally, throat clear, neck supple, nontender, trachea midline. No drooling or trismus noted. No meningeal signs. No hot potato voice noted. Lungs: Clear to auscultation, breath sounds equal bilaterally, chest nontender. Heart: S1S2, regular rate and rhythm without overt murmur Abdomen: Soft, nondistended, left lower quadrant tenderness with palpation. Negative for masses or hepatosplenomegaly. Negative for costovertebral tenderness. Pelvis: Stable nontender. Skin: Intact, warm, dry. No lesions or rashes noted. Extremities: Atraumatic, moves all extremities per self without difficulty or deficits, negative for cords or calf pain. Neurovascular unremarkable. Neuro: Awake, alert, oriented. Cranial nerves II through XII unremarkable. Cerebellum unremarkable. Motor and sensory unremarkable throughout. Exam nonfocal. Notes: Patient does have a leukocytosis. CT shows inflammatory changes around the portion of the sigmoid colon believed to represent mild diverticulitis. There is a 1.7 cm diverticular abscess or small cyst within the adjacent ovary. Rocephin and Flagyl given IV. Pain is tolerable, declines wanting anything additional at this time. I did talk with Dr. Saavedra, hospitalist on-call, we discussed doing a pelvic ultrasound to decipher between abscess and cyst. The patient does not want a male biometrics technician who was going to perform this study, female dental equipment technician is not available for a few hours due to having other scheduled images. Quentin was made aware of this. She requests that the surgeon on-call was notified of patient's CT findings. Dr. Arshad was informed of this patient's CT and the delay on getting an ultrasound. Dr. Arshad has reviewed the patient's CT and states she is appropriate for admission here and he will connect with the hospitalist if and as needed. Patient was made aware of the admission and she is agreeable. Vital signs remained stable. Diagnostics: CBC, CMP, Lactic, UA, CT abd/pelvis, pelvic US, COVID Therapeutics: IV fluids, Toradol, Zofran, Rocephin, Flagyl Impression: Diverticulitis Plan: Inpatient admission with telemetry Definitive disposition and diagnosis as appropriate pending reevaluation and review of above. lower abdomen Pain Score (Numeric/FACES): 8 - Related Data Allergies Allergy/AdvReac Type Severity Reaction Status Date / Time ciprofloxacin Allergy Nausea and Verified 04/26/20 10:09 Vomiting codeine Allergy Abdominal Verified 04/26/20 10:09 Pain morphine Allergy Abdominal Verified 04/26/20 10:09 Pain Sulfa (Sulfonamide Allergy Rash Verified 04/26/20 10:09 Antibiotics) Home Meds: Home Meds ALPRAZolam [Xanax] 0.5 mg PO DAILY PRN 04/26/20 [History] Albuterol [Proair HFA] 2 inh INH Q4H PRN 04/26/20 [History] Biotin 1,000 mcg PO DAILY 04/26/20 [History] Budesonide/Formoterol [Symbicort 160-4.5 MCG] 2 inh IH BID 04/26/20 [History] Cholecalciferol (Vitamin D3) [Vitamin D3] 1,000 unit PO DAILY 04/26/20 [History] InFLIXimab [Remicade] 0 mg IV Q56D 04/26/20 [History] Isosorbide Mononitrate [Imdur] 30 mg PO DAILY 04/26/20 [History] Levothyroxine [Synthroid] 50 mcg PO ACBREAKFAST 04/26/20 [History] Montelukast [Singulair] 5 mg PO DAILY 04/26/20 [History] Rosuvastatin [Crestor] 5 mg PO DAILY 04/26/20 [History] hydroCHLOROthiazide [Hydrochlorothiazide] 12.5 mg PO DAILY 04/26/20 [History] lisinopriL [Lisinopril] 20 mg PO DAILY 04/26/20 [History] Past Medical History - Past Health History Medical/Surgical History: Denies Medical/Surgical History HEENT History: Reports: None Cardiovascular History: Reports: Hypertension. Denies: Blood Clots/VTE/DVT, CAD, Heart Failure, High Cholesterol, [place] Respiratory History: Reports: Bronchitis, Recurrent Gastrointestinal History: Reports: None. Denies: GERD, GI Bleed Genitourinary History: Reports: None. Denies: Acute Renal Failure, Chronic Renal Insuffiency CLOTHES MODEL History: Reports: None Musculoskeletal History: Reports: RA Neurological History: Reports: None. Denies: CVA, TIA Psychiatric History: Reports: Anxiety, Depression Endocrine/Metabolic History: Reports: Hypothyroidism, Obesity/BMI 30+. Denies: Diabetes, Type II Hematologic History: Reports: None Immunologic History: Reports: None Oncologic (Cancer) History: Reports: None Dermatologic History: Reports: None - Infectious Disease History Infectious Disease History: Reports: None - Past Surgical History HEENT Surgical History: Reports: Tonsillectomy GI Surgical History: Reports: Cholecystectomy Social & Family History - Family History Family Medical History: Noncontributory Cardiac: Reports: [place] - Caffeine Use Caffeine Use: Reports: Coffee ED ROS GENERAL - Review of Systems Review Of Systems: Comprehensive ROS is negative, except as noted in HPI. ED EXAM, GENERAL - Physical Exam Exam: See Below (See dictation) Course - Vital Signs Last Recorded V/S: Last Vital Signs Temp 97.1 F 04/26/20 10:09 Pulse 64 04/26/20 11:46 Resp 18 04/26/20 11:46 BP 148/55 H 04/26/20 11:46 Pulse Ox 95 04/26/20 11:46 - Orders/Labs/Meds Orders: Active Orders 24 hr Category Date Time Status Pelvis Non OB Comp [US] Stat Exams 04/26/20 12:20 Ordered Lactated Ringers [Ringers, Lactated] 1,000 ml Med 04/26/20 10:30 Active IV ASDIRECTED Sodium Chloride 0.9% [Saline Flush] Med 04/26/20 10:04 Active 10 ml FLUSH ASDIRECTED PRN Sodium Chloride 0.9% [Saline Flush] Med 04/26/20 10:04 Active 2.5 ml FLUSH ASDIRECTED PRN Saline Lock Insert [OM.PC] Stat Oth 04/26/20 10:04 Ordered Medication Orders Lactated Ringer's (Ringers, Lactated) 1,000 mls @ 150 mls/hr IV ASDIRECTED LOBO Last Admin: 04/26/20 10:29 Dose: 150 mls/hr Documented by: ADELATALJesse Sodium Chloride (Saline Flush) 10 ml FLUSH ASDIRECTED PRN PRN Reason: Keep Vein Open Last Admin: 04/26/20 10:29 Dose: 10 ml Documented by: ALENA Sodium Chloride (Saline Flush) 2.5 ml FLUSH ASDIRECTED PRN PRN Reason: Keep Vein Open Last Admin: 04/26/20 10:29 Dose: 2.5 ml Documented by: ALENA Labs: Laboratory Tests 04/26/20 04/26/20 04/26/20 Range/Units 10:17 10:17 10:17 WBC 15.08 H (4.0-11.0) K/uL RBC 4.19 L (4.30-5.90) M/uL Hgb 12.8 (12.0-16.0) g/dL Hct 40.4 (36.0-46.0) % MCV 96.4 (80.0-98.0) fL MCH 30.5 (27.0-32.0) pg MCHC 31.7 (31.0-37.0) g/dL RDW Std Deviation 47.5 (28.0-62.0) fl RDW Coeff of Jessika 13 (11.0-15.0) % Plt Count 358 (150-400) K/uL MPV 9.80 (7.40-12.00) fL Neut % (Auto) 80.9 H (48.0-80.0) % Lymph % (Auto) 10.1 L (16.0-40.0) % [place] % (Auto) 7.4 (0.0-15.0) % Eos % (Auto) 1.4 (0.0-7.0) % Baso % (Auto) 0.2 (0.0-1.5) % Neut # (Auto) 12.2 H (1.4-5.7) K/uL Lymph # (Auto) 1.5 (0.6-2.4) K/uL [place] # (Auto) 1.1 H (0.0-0.8) K/uL Eos # (Auto) 0.2 (0.0-0.7) K/uL Baso # (Auto) 0.0 (0.0-0.1) K/uL Nucleated RBC % 0.0 /100WBC Nucleated RBCs # 0 K/uL Lactate 0.8 (0.20-2.00) mmol/L Sodium 141 (136-145) mmol/L Potassium 3.8 (3.5-5.1) mmol/L Chloride 104 (98-107) mmol/L Carbon Dioxide 28.4 (21.0-32.0) mmol/L BUN 18 (7.0-18.0) mg/dL Creatinine 1.1 H (0.6-1.0) mg/dL Est Cr Clr Drug Dosing 44.66 mL/min Estimated GFR (MDRD) 49.5 ml/min Glucose 128 H (74-106) mg/dL Calcium 8.8 (8.5-10.1) mg/dL Total Bilirubin 0.4 (0.2-1.0) mg/dL AST 18 (15-37) IU/L ALT 22 (14-63) IU/L Alkaline Phosphatase 129 H (46-116) U/L Total Protein 8.5 H (6.4-8.2) g/dL Albumin 3.4 (3.4-5.0) g/dL Globulin 5.1 H (2.6-4.0) g/dL Albumin/Globulin Ratio 0.7 L (0.9-1.6) Urine Color Urine Appearance Urine pH (5.0-8.0) Ur Specific [place] (1.001-1.035) Urine Protein (NEGATIVE) mg/dL Urine Glucose (UA) (NEGATIVE) mg/dL Urine Ketones (NEGATIVE) mg/dL Urine Occult Blood (NEGATIVE) Urine Nitrite (NEGATIVE) Urine Bilirubin (NEGATIVE) Urine Urobilinogen (<2.0) EU/dL Ur Leukocyte Esterase (NEGATIVE) COVID-19 (JOSE CARLOS) (NEGATIVE) 04/26/20 04/26/20 Range/Units 11:55 12:04 WBC (4.0-11.0) K/uL RBC (4.30-5.90) M/uL Hgb (12.0-16.0) g/dL Hct (36.0-46.0) % MCV (80.0-98.0) fL MCH (27.0-32.0) pg MCHC (31.0-37.0) g/dL RDW Std Deviation (28.0-62.0) fl RDW Coeff of Jessika (11.0-15.0) % Plt Count (150-400) K/uL MPV (7.40-12.00) fL Neut % (Auto) (48.0-80.0) % Lymph % (Auto) (16.0-40.0) % [place] % (Auto) (0.0-15.0) % Eos % (Auto) (0.0-7.0) % Baso % (Auto) (0.0-1.5) % Neut # (Auto) (1.4-5.7) K/uL Lymph # (Auto) (0.6-2.4) K/uL [place] # (Auto) (0.0-0.8) K/uL Eos # (Auto) (0.0-0.7) K/uL Baso # (Auto) (0.0-0.1) K/uL Nucleated RBC % /100WBC Nucleated RBCs # K/uL Lactate (0.20-2.00) mmol/L Sodium (136-145) mmol/L Potassium (3.5-5.1) mmol/L Chloride (98-107) mmol/L Carbon Dioxide (21.0-32.0) mmol/L BUN (7.0-18.0) mg/dL Creatinine (0.6-1.0) mg/dL Est Cr Clr Drug Dosing mL/min Estimated GFR (MDRD) ml/min Glucose (74-106) mg/dL Calcium (8.5-10.1) mg/dL Total Bilirubin (0.2-1.0) mg/dL AST (15-37) IU/L ALT (14-63) IU/L Alkaline Phosphatase (46-116) U/L Total Protein (6.4-8.2) g/dL Albumin (3.4-5.0) g/dL Globulin (2.6-4.0) g/dL Albumin/Globulin Ratio (0.9-1.6) Urine Color YELLOW Urine Appearance CLEAR Urine pH 5.0 (5.0-8.0) Ur Specific [place] <= 1.005 (1.001-1.035) Urine Protein NEGATIVE (NEGATIVE) mg/dL Urine Glucose (UA) NEGATIVE (NEGATIVE) mg/dL Urine Ketones NEGATIVE (NEGATIVE) mg/dL Urine Occult Blood NEGATIVE (NEGATIVE) Urine Nitrite NEGATIVE (NEGATIVE) Urine Bilirubin NEGATIVE (NEGATIVE) Urine Urobilinogen 0.2 (<2.0) EU/dL Ur Leukocyte Esterase NEGATIVE (NEGATIVE) COVID-19 (JOSE CARLOS) NEGATIVE (NEGATIVE) Meds: Medications Generic Name Dose Route Start Last Admin Trade Name Freq PRN Reason Stop Dose Admin Lactated Ringer's 1,000 mls @ 150 mls/hr 04/26/20 10:30 04/26/20 10:29 Ringers, Lactated IV 150 mls/hr ASDIRECTED LOBO Administration Sodium Chloride 10 ml 04/26/20 10:04 04/26/20 10:29 Saline Flush FLUSH 10 ml ASDIRECTED PRN Administration Keep Vein Open Sodium Chloride 2.5 ml 04/26/20 10:04 04/26/20 10:29 Saline Flush FLUSH 2.5 ml ASDIRECTED PRN Administration Keep Vein Open Discontinued Medications Generic Name Dose Route Start Last Admin Trade Name Fre[place]mett PRN Reason Stop Dose Admin Ceftriaxone Sodium/Dextrose 1 50 mls @ 100 mls/hr 04/26/20 11:33 04/26/20 11:45 gm/ Premix IV 04/26/20 12:02 100 mls/hr ONETIME ONE Administration Metronidazole 500 mg/ Premix 100 mls @ 100 mls/hr 04/26/20 11:48 04/26/20 12:33 IV 04/26/20 12:47 100 mls/hr ONETIME ONE Administration Iopamidol 100 ml 04/26/20 11:38 04/26/20 11:38 Isovue Multipack-370 (76%) IVPUSH 04/26/20 11:39 100 ml ONETIME ONE Administration Ketorolac Tromethamine 30 mg 04/26/20 10:17 04/26/20 10:29 Toradol IVPUSH 04/26/20 10:18 30 mg ONETIME ONE Administration Ondansetron HCl 4 mg 04/26/20 10:17 04/26/20 10:29 Zofran IVPUSH 04/26/20 10:18 4 mg ONETIME ONE Administration Departure - Departure Time of Disposition: 13:58 Disposition: Admitted As Inpatient 68 Clinical Impression: Diverticulitis - Discharge Information Sepsis Event Note (ED) - Focused Exam Vital Signs: Vital Signs Temp Pulse Resp BP Pulse Ox 04/26/20 11:46 64 18 148/55 H 95 04/26/20 10:09 97.1 F 90 18 147/55 H 94 L - My Orders Last 24 Hours: My Active Orders 04/26/20 10:04 Sodium Chloride 0.9% [Saline Flush] 10 ml FLUSH ASDIRECTED PRN Sodium Chloride 0.9% [Saline Flush] 2.5 ml FLUSH ASDIRECTED PRN Saline Lock Insert [OM.PC] Stat 04/26/20 10:30 Lactated Ringers [Ringers, Lactated] 1,000 ml IV ASDIRECTED 04/26/20 12:20 Pelvis Non OB Comp [US] Stat - Assessment/Plan Last 24 Hours: My Active Orders 04/26/20 10:04 Sodium Chloride 0.9% [Saline Flush] 10 ml FLUSH ASDIRECTED PRN Sodium Chloride 0.9% [Saline Flush] 2.5 ml FLUSH ASDIRECTED PRN Saline Lock Insert [OM.PC] Stat 04/26/20 10:30 Lactated Ringers [Ringers, Lactated] 1,000 ml IV ASDIRECTED 04/26/20 12:20 Pelvis Non OB Comp [US] Stat
[2020-04-26] MEDS ORDERED: Sodium Chloride 0.9% 10 ML Syringe FLUSH PRN (10:04)
[2020-04-26] MEDS ORDERED: Sodium Chloride 0.9% 2.5 ML Syringe FLUSH PRN (10:04)
[2020-04-26] MEDS ORDERED: Ketorolac 30 MG/ML SDV IVPUSH ONE (10:17)
[2020-04-26] MEDS ORDERED: Ondansetron 4 MG/2 ML SDV IVPUSH ONE (10:17)
[2020-04-26] MEDS ORDERED: Lactated Ringers 1,000 ML IV SCH (10:30)
[2020-04-26 10:49] LABS: CARBON DIOXIDE,CO2 28.4 mmol/L (21.0-32.0); POTASSIUM,K 3.8 mmol/L (3.5-5.1)
[2020-04-26] MEDS ORDERED: cefTRIAXone 1 GM in Premix Bag 1 BAG IV ONE (11:33)
[2020-04-26] MEDS ORDERED: Iopamidol 755 MG/ML 200 ML Multipack Bottle IVPUSH ONE (11:38)
[2020-04-26] MEDS ORDERED: metroNIDAZOLE/Normal Saline 500 MG in Premix Bag 1 BAG IV ONE (11:48)
--- NOTE | 2020-04-26 12:09 | CT ---
CT abdomen and pelvis Technique: Multiple axial sections were obtained from above the dome of the diaphragm inferiorly through the pubic symphysis. Intravenous contrast was utilized. No oral contrast has been given. Comparison: Prior CT abdomen and pelvis study of 09/08/17. Visualized lung bases show nothing acute. Liver contains no focal parenchymal abnormality. Spleen appears within normal limits. Adrenal glands show no nodule. Small cysts are noted within both kidneys. Largest cyst is located within the right kidney measuring 2.0 cm. Several of the cysts have increased in size from previous exam. Pancreas is atrophied. Surgical clips are seen from prior cholecystectomy. Aorta shows no aneurysm. No retroperitoneal adenopathy or mesenteric abnormalities are seen. Fat-containing umbilical hernia is noted. No pelvic mass or adenopathy is seen. No free fluid is seen. Inflammatory change is seen around a portion of the sigmoid colon believed to represent mild diverticulitis. Small low density finding is seen next to this area of inflammation measuring about 1.7 cm. Uncertain if this represents a small diverticular abscess or represents a small cyst within an adjacent ovary. Appendix is seen and appears to be normal in size. Bone window settings were reviewed which show scattered degenerative change within the spine. Hemangioma is noted within T12 Impression: 1. Findings which are felt compatible with mild diverticulitis. Small cystic area next to this area of diverticulitis. Uncertain if this represents a small 1.7 cm diverticular abscess or represents a small cyst within the adjacent ovary. 2. Other findings as noted above which are nonacute. Diagnostic code #3 This report was dictated in MDT
[2020-04-26] MEDS ORDERED: Ondansetron 4 MG/2 ML SDV IVPUSH PRN (14:42)
--- NOTE | 2020-04-26 15:23 | PCM.HP.2 ---
<Taylor Lawson M - Last Filed: 04/26/20 15:27> H&P History of Present Illness - General Date of Service: 04/26/20 Admit Problem/Dx: Admission Diagnosis/Problem Admission Diagnosis/Problem Diverticulitis Source of Information: Patient History Limitations: Reports: No Limitations - History of Present Illness Initial Comments - Free Text/Narative: This 69 year old female with pmh of diverticulosis, HTN, HLD, RA on Remicade, asthma and hypothyroidism presented to the ED with complaints of LLQ pain and cramping. She reports this has been going on for some weeks, initially being treated outpatient for constipation and then obtained a CT and was started on Cipro and Flagyl, but didn't take Cipro because she is allergic to it. She reports the last couple days she has because very tired, having subjective fever and chills with worsening abdominal pain. She has no appetite, tolerating liquids. She reports she had a colonoscopy 1 1/[address] Welch and only had diverticulosis. She reports she was hospitalized 3 years ago for diverticulitis, otherwise has been doing well since. She denies tobacco use, no alcohol use and no recreational drug use. In the ED leukocytosis noted, hgb 12.8, Na 141, K+ 3.8, Cr 1.1 BUN 18, alk phos 129/ CT abdomen/pelvis revealed inflammatory changes around sigmoid colon and possible abscess or cyst area measuring 1.[address] Arshad contacted by ED, he saw CT and evaluated patient. Recommended admission with IV antibiotics, NPO for now. follow up with General surgery as outpatient for outpatient colonoscopy. Recommend 2-3 weeks abx treatment. If pain worsens, reconsult surgery as needed. She will be admitted inpatient for acute sigmoid diverticulitis. She was due to receive Remicade yesterday , but was to sick to go to appointment. last infusion was 5 weeks ago. lower abdomen Pain Score (Numeric/FACES): 8 - Related Data Allergies/Adverse Reactions: Allergies Allergy/AdvReac Type Severity Reaction Status Date / Time ciprofloxacin Allergy Nausea and Verified 04/26/20 10:09 Vomiting codeine Allergy Abdominal Verified 04/26/20 10:09 Pain morphine Allergy Abdominal Verified 04/26/20 10:09 Pain Sulfa (Sulfonamide Allergy Rash Verified 04/26/20 10:09 Antibiotics) Home Medications: Home Meds ALPRAZolam [Xanax] 0.5 mg PO DAILY PRN 04/26/20 [History] Albuterol [Proair HFA] 2 inh INH Q4H PRN 04/26/20 [History] Biotin 1,000 mcg PO DAILY 04/26/20 [History] Budesonide/Formoterol [Symbicort 160-4.5 MCG] 2 inh IH BID 04/26/20 [History] Cholecalciferol (Vitamin D3) [Vitamin D3] 1,000 unit PO DAILY 04/26/20 [History] InFLIXimab [Remicade] 0 mg IV Q56D 04/26/20 [History] Isosorbide Mononitrate [Imdur] 30 mg PO DAILY 04/26/20 [History] Levothyroxine [Synthroid] 50 mcg PO ACBREAKFAST 04/26/20 [History] Montelukast [Singulair] 5 mg PO DAILY 04/26/20 [History] Rosuvastatin [Crestor] 5 mg PO DAILY 04/26/20 [History] hydroCHLOROthiazide [Hydrochlorothiazide] 12.5 mg PO DAILY 04/26/20 [History] lisinopriL [Lisinopril] 20 mg PO DAILY 04/26/20 [History] Past Medical History - Past Health History Medical/Surgical History: Denies Medical/Surgical History HEENT History: Reports: None Cardiovascular History: Reports: Hypertension. Denies: Blood Clots/VTE/DVT, CAD, Heart Failure, High Cholesterol, [place] Respiratory History: Reports: Bronchitis, Recurrent Gastrointestinal History: Reports: None. Denies: GERD, GI Bleed Genitourinary History: Reports: None. Denies: Acute Renal Failure, Chronic Renal Insuffiency BLAST [employer]ER History: Reports: None Musculoskeletal History: Reports: RA Neurological History: Reports: None. Denies: CVA, TIA Psychiatric History: Reports: Anxiety, Depression Endocrine/Metabolic History: Reports: Hypothyroidism, Obesity/BMI 30+. Denies: Diabetes, Type II Hematologic History: Reports: None Immunologic History: Reports: None Oncologic (Cancer) History: Reports: None Dermatologic History: Reports: None - Infectious Disease History Infectious Disease History: Reports: None - Past Surgical History HEENT Surgical History: Reports: Tonsillectomy GI Surgical History: Reports: Cholecystectomy Social & Family History - Family History Family Medical History: Noncontributory Cardiac: Reports: [place] - Tobacco Use Smoking Status *Q: Never Smoker - Caffeine Use Caffeine Use: Reports: Coffee - Recreational Drug Use Recreational Drug Use: No H&P Review of Systems - Review of Systems: Review Of Systems: See Below General: Reports: Fever, Chills, Malaise HEENT: Reports: No Symptoms. Denies: Headaches, Sinus Congestion Pulmonary: Reports: No Symptoms. Denies: Shortness of Breath Cardiovascular: Reports: No Symptoms. Denies: Chest Pain Gastrointestinal: Reports: Abdominal Pain, Constipation, Diarrhea, Decreased A ppetite, Nausea. Denies: Bloody Stool Genitourinary: Reports: No Symptoms. Denies: Dysuria, Frequency, Burning Musculoskeletal: Reports: No Symptoms Skin: Reports: No Symptoms Psychiatric: Reports: No Symptoms Neurological: Reports: No Symptoms Exam - Exam Exam: See Below - Vital Signs Vital Signs: Last Vital Signs Temp 97.1 F 04/26/20 10:09 Pulse 64 04/26/20 11:46 Resp 18 04/26/20 11:46 BP 148/55 H 04/26/20 11:46 Pulse Ox 95 04/26/20 11:46 Weight: 99.79 kg - Exam General: Alert, Oriented, Cooperative HEENT: Conjunctiva Clear, Posterior Pharynx Clear. No: Mucosa Moist & [place] (dry) Neck: Supple Lungs: Clear to Auscultation, Normal Respiratory Effort Cardiovascular: Regular Rate, Regular Rhythm GI/Abdominal Exam: Normal Bowel Sounds, Soft, Non-Tender, No Distention, No Mass Extremities: Normal Inspection, Normal Range of Motion, Non-Tender, No Pedal Edema Skin: Warm, Dry, Intact Neurological: Cranial Nerves Intact Neuro Extensive - Mental Status: Alert, Oriented x3 Neuro Extensive - Motor, Sensory, Reflexes: CN II-XII Intact Psychiatric: Alert, Normal Affect, Normal Mood - Patient Data Lab Results Last 24 hrs: Laboratory Results - last 24 hr 04/26/20 04/26/20 04/26/20 Range/Units 10:17 10:17 10:17 WBC 15.08 H (4.0-11.0) K/uL RBC 4.19 L (4.30-5.90) M/uL Hgb 12.8 (12.0-16.0) g/dL Hct 40.4 (36.0-46.0) % MCV 96.4 (80.0-98.0) fL MCH 30.5 (27.0-32.0) pg MCHC 31.7 (31.0-37.0) g/dL RDW Std Deviation 47.5 (28.0-62.0) fl RDW Coeff of Jessika 13 (11.0-15.0) % Plt Count 358 (150-400) K/uL MPV 9.80 (7.40-12.00) fL Neut % (Auto) 80.9 H (48.0-80.0) % Lymph % (Auto) 10.1 L (16.0-40.0) % [place] % (Auto) 7.4 (0.0-15.0) % Eos % (Auto) 1.4 (0.0-7.0) % Baso % (Auto) 0.2 (0.0-1.5) % Neut # (Auto) 12.2 H (1.4-5.7) K/uL Lymph # (Auto) 1.5 (0.6-2.4) K/uL [place] # (Auto) 1.1 H (0.0-0.8) K/uL Eos # (Auto) 0.2 (0.0-0.7) K/uL Baso # (Auto) 0.0 (0.0-0.1) K/uL Nucleated RBC % 0.0 /100WBC Nucleated RBCs # 0 K/uL Lactate 0.8 (0.20-2.00) mmol/L Sodium 141 (136-145) mmol/L Potassium 3.8 (3.5-5.1) mmol/L Chloride 104 (98-107) mmol/L Carbon Dioxide 28.4 (21.0-32.0) mmol/L BUN 18 (7.0-18.0) mg/dL Creatinine 1.1 H (0.6-1.0) mg/dL Est Cr Clr Drug Dosing 44.66 mL/min Estimated GFR (MDRD) 49.5 ml/min Glucose 128 H (74-106) mg/dL Calcium 8.8 (8.5-10.1) mg/dL Total Bilirubin 0.4 (0.2-1.0) mg/dL AST 18 (15-37) IU/L ALT 22 (14-63) IU/L Alkaline Phosphatase 129 H (46-116) U/L Total Protein 8.5 H (6.4-8.2) g/dL Albumin 3.4 (3.4-5.0) g/dL Globulin 5.1 H (2.6-4.0) g/dL Albumin/Globulin Ratio 0.7 L (0.9-1.6) Urine Color Urine Appearance Urine pH (5.0-8.0) Ur Specific [place] (1.001-1.035) Urine Protein (NEGATIVE) mg/dL Urine Glucose (UA) (NEGATIVE) mg/dL Urine Ketones (NEGATIVE) mg/dL Urine Occult Blood (NEGATIVE) Urine Nitrite (NEGATIVE) Urine Bilirubin (NEGATIVE) Urine Urobilinogen (<2.0) EU/dL Ur Leukocyte Esterase (NEGATIVE) COVID-19 (JOSE CARLOS) (NEGATIVE) 04/26/20 04/26/20 Range/Units 11:55 12:04 WBC (4.0-11.0) K/uL RBC (4.30-5.90) M/uL Hgb (12.0-16.0) g/dL Hct (36.0-46.0) % MCV (80.0-98.0) fL MCH (27.0-32.0) pg MCHC (31.0-37.0) g/dL RDW Std Deviation (28.0-62.0) fl RDW Coeff of Jessika (11.0-15.0) % Plt Count (150-400) K/uL MPV (7.40-12.00) fL Neut % (Auto) (48.0-80.0) % Lymph % (Auto) (16.0-40.0) % [place] % (Auto) (0.0-15.0) % Eos % (Auto) (0.0-7.0) % Baso % (Auto) (0.0-1.5) % Neut # (Auto) (1.4-5.7) K/uL Lymph # (Auto) (0.6-2.4) K/uL [place] # (Auto) (0.0-0.8) K/uL Eos # (Auto) (0.0-0.7) K/uL Baso # (Auto) (0.0-0.1) K/uL Nucleated RBC % /100WBC Nucleated RBCs # K/uL Lactate (0.20-2.00) mmol/L Sodium (136-145) mmol/L Potassium (3.5-5.1) mmol/L Chloride (98-107) mmol/L Carbon Dioxide (21.0-32.0) mmol/L BUN (7.0-18.0) mg/dL Creatinine (0.6-1.0) mg/dL Est Cr Clr Drug Dosing mL/min Estimated GFR (MDRD) ml/min Glucose (74-106) mg/dL Calcium (8.5-10.1) mg/dL Total Bilirubin (0.2-1.0) mg/dL AST (15-37) IU/L ALT (14-63) IU/L Alkaline Phosphatase (46-116) U/L Total Protein (6.4-8.2) g/dL Albumin (3.4-5.0) g/dL Globulin (2.6-4.0) g/dL Albumin/Globulin Ratio (0.9-1.6) Urine Color YELLOW Urine Appearance CLEAR Urine pH 5.0 (5.0-8.0) Ur Specific [place] <= 1.005 (1.001-1.035) Urine Protein NEGATIVE (NEGATIVE) mg/dL Urine Glucose (UA) NEGATIVE (NEGATIVE) mg/dL Urine Ketones NEGATIVE (NEGATIVE) mg/dL Urine Occult Blood NEGATIVE (NEGATIVE) Urine Nitrite NEGATIVE (NEGATIVE) Urine Bilirubin NEGATIVE (NEGATIVE) Urine Urobilinogen 0.2 (<2.0) EU/dL Ur Leukocyte Esterase NEGATIVE (NEGATIVE) COVID-19 (JOSE CARLOS) NEGATIVE (NEGATIVE) Result Diagrams: 04/26/20 10:17 04/26/20 10:17 Sepsis Event Note - Evaluation Sepsis Screening Result: No Definite Risk - Focused Exam Vital Signs: Vital Signs Temp Pulse Resp BP Pulse Ox 04/26/20 11:46 64 18 148/55 H 95 04/26/20 10:09 97.1 F 90 18 147/55 H 94 L Date Exam was Performed: 04/26/20 Time Exam was Performed: 15:27 - Problem List (1) Diverticulitis of sigmoid colon SNOMED Code(s): 382794372 ICD Code: K57.32 - DVTRCLI OF LG INT W/O PERFORATION OR ABSCESS W/O BLEEDING Status: Acute Current Visit: No (2) HTN (hypertension) SNOMED Code(s): 72533835 ICD Code: I10 - ESSENTIAL (PRIMARY) HYPERTENSION Status: Chronic Priority: Low Current Visit: No Qualifiers: Hypertension type: essential hypertension Qualified Code(s): I10 - Essential (primary) hypertension (3) History of asthma SNOMED Code(s): 544641006 ICD Code: Z87.09 - PERSONAL HISTORY OF OTHER DISEASES OF THE RESPIRATORY SYSTEM Status: Chronic Current Visit: No (4) Hypothyroid SNOMED Code(s): 18578384 ICD Code: E03.9 - HYPOTHYROIDISM, UNSPECIFIED Status: Chronic Current Visit: No Qualifiers: Hypothyroidism type: unspecified Qualified Code(s): E03.9 - Hypothyroidism, unspecified (5) Rheumatoid arthritis SNOMED Code(s): 58512090 ICD Code: M06.9 - RHEUMATOID ARTHRITIS, UNSPECIFIED Status: Chronic Priority: Low Current Visit: No Qualifiers: Rheumatoid factor presence: unspecified presence Laterality: unspecified laterality Problem List Initiated/Reviewed/Updated: No Orders Last 24hrs: Active Orders 24 hr Category Date Time Status Admission Status [Patient Status] [ADT] Stat ADT 04/26/20 13:02 Active Intake and Output [RC] QSHIFT Care 04/26/20 14:42 Active Oxygen Therapy [RC] PRN Care 04/26/20 14:42 Active Up With Assistance [RC] ASDIRECTED Care 04/26/20 14:42 Active VTE/DVT Education [RC] PER UNIT ROUTINE Care 04/26/20 14:42 Active Vital Signs [RC] Q4H Care 04/26/20 14:42 Active NPO [Nothing Per Oral Diet] [DIET] Diet 04/26/20 Dinner Ordered Pelvis Non OB Comp [US] Stat Exams 04/26/20 12:20 Stop Req CBC WITH AUTO DIFF [HEME] AM Lab 04/27/20 05:11 Ordered COMPREHENSIVE METABOLIC PN,CMP [CHEM] AM Lab 04/27/20 05:11 Ordered MAGNESIUM [CHEM] AM Lab 04/27/20 05:11 Ordered Enoxaparin [Lovenox] Med 04/26/20 16:00 Active 40 mg SUBCUT Q24H Ketorolac [Toradol] Med 04/26/20 15:10 Ordered 15 mg IVPUSH Q6H PRN Lactated Ringers [Ringers, Lactated] 1,000 ml Med 04/26/20 14:45 Active IV Q8H Ondansetron [Zofran] Med 04/26/20 14:42 Active 4 mg IVPUSH Q4H PRN Piperacillin/Tazobactam [Piperacil-Tazobact] 3.375 gm Med 04/26/20 14:45 Active Sodium Chloride 0.9% [Normal Saline] 50 ml IV Q6H Sodium Chloride 0.9% [Saline Flush] Med 04/26/20 10:04 Active 2.5 ml FLUSH ASDIRECTED PRN Saline Lock Insert [OM.PC] Stat Oth 04/26/20 10:04 Ordered Resuscitation Status Routine Resus Stat 04/26/20 14:42 Ordered Medication Orders Enoxaparin Sodium (Lovenox) 40 mg SUBCUT Q24H LOBO Lactated Ringer's (Ringers, Lactated) 1,000 mls @ 125 mls/hr IV Q8H LOBO Piperacillin Sod/Tazobactam (Sod 3.375 gm/ Sodium Chloride) 50 mls @ 100 mls/hr IV Q6H LOBO Ketorolac Tromethamine (Toradol) 15 mg IVPUSH Q6H PRN PRN Reason: Pain Ondansetron HCl (Zofran) 4 mg IVPUSH Q4H PRN PRN Reason: Nausea Sodium Chloride (Saline Flush) 2.5 ml FLUSH ASDIRECTED PRN PRN Reason: Keep Vein Open Last Admin: 04/26/20 10:29 Dose: 2.5 ml Documented by: ALENA Assessment/Plan Comment:: This 69 year old female admitted with acute sigmoid diverticulitis 1 Acute diverticulitis, sigmoid colon - NPO, except for ice and sips for meds - Zosyn - IVFs LR 125 - Toradol 15 mg IV eery 6 hours PRN pain, patient does not want opioids - Dr Arshad, evaluated in the ED. Re-consult if needed, continue with medical management for now - Arrange follow up with Dr Welch for Colonscopy 2. Asthma; - Continue Symbicort 3. HTN/HLD - Hold Lisinopril and HCTZ for now VTE prophylaxis: Lovenox Dispo 2-3 days - Mortality Measure Prognosis:: Good <Keren Saavedra - Last Filed: 04/26/20 22:48> H&P History of Present Illness - General Admit Problem/Dx: Admission Diagnosis/Problem Admission Diagnosis/Problem Diverticulitis Exam - Vital Signs Vital Signs: Last Vital Signs Temp 37.3 C 04/26/20 19:30 Pulse 61 04/26/20 19:30 Resp 17 04/26/20 14:42 BP 152/70 H 04/26/20 19:30 Pulse Ox 96 04/26/20 19:30 - Patient Data Lab Results Last 24 hrs: Laboratory Results - last 24 hr 04/26/20 04/26/20 04/26/20 Range/Units 10:17 10:17 10:17 WBC 15.08 H (4.0-11.0) K/uL RBC 4.19 L (4.30-5.90) M/uL Hgb 12.8 (12.0-16.0) g/dL Hct 40.4 (36.0-46.0) % MCV 96.4 (80.0-98.0) fL MCH 30.5 (27.0-32.0) pg MCHC 31.7 (31.0-37.0) g/dL RDW Std Deviation 47.5 (28.0-62.0) fl RDW Coeff of Jessika 13 (11.0-15.0) % Plt Count 358 (150-400) K/uL MPV 9.80 (7.40-12.00) fL Neut % (Auto) 80.9 H (48.0-80.0) % Lymph % (Auto) 10.1 L (16.0-40.0) % [place] % (Auto) 7.4 (0.0-15.0) % Eos % (Auto) 1.4 (0.0-7.0) % Baso % (Auto) 0.2 (0.0-1.5) % Neut # (Auto) 12.2 H (1.4-5.7) K/uL Lymph # (Auto) 1.5 (0.6-2.4) K/uL [place] # (Auto) 1.1 H (0.0-0.8) K/uL Eos # (Auto) 0.2 (0.0-0.7) K/uL Baso # (Auto) 0.0 (0.0-0.1) K/uL Nucleated RBC % 0.0 /100WBC Nucleated RBCs # 0 K/uL Lactate 0.8 (0.20-2.00) mmol/L Sodium 141 (136-145) mmol/L Potassium 3.8 (3.5-5.1) mmol/L Chloride 104 (98-107) mmol/L Carbon Dioxide 28.4 (21.0-32.0) mmol/L BUN 18 (7.0-18.0) mg/dL Creatinine 1.1 H (0.6-1.0) mg/dL Est Cr Clr Drug Dosing 44.66 mL/min Estimated GFR (MDRD) 49.5 ml/min Glucose 128 H (74-106) mg/dL Calcium 8.8 (8.5-10.1) mg/dL Total Bilirubin 0.4 (0.2-1.0) mg/dL AST 18 (15-37) IU/L ALT 22 (14-63) IU/L Alkaline Phosphatase 129 H (46-116) U/L Total Protein 8.5 H (6.4-8.2) g/dL Albumin 3.4 (3.4-5.0) g/dL Globulin 5.1 H (2.6-4.0) g/dL Albumin/Globulin Ratio 0.7 L (0.9-1.6) Urine Color Urine Appearance Urine pH (5.0-8.0) Ur Specific [place] (1.001-1.035) Urine Protein (NEGATIVE) mg/dL Urine Glucose (UA) (NEGATIVE) mg/dL Urine Ketones (NEGATIVE) mg/dL Urine Occult Blood (NEGATIVE) Urine Nitrite (NEGATIVE) Urine Bilirubin (NEGATIVE) Urine Urobilinogen (<2.0) EU/dL Ur Leukocyte Esterase (NEGATIVE) COVID-19 (JOSE CARLOS) (NEGATIVE) 04/26/20 04/26/20 Range/Units 11:55 12:04 WBC (4.0-11.0) K/uL RBC (4.30-5.90) M/uL Hgb (12.0-16.0) g/dL Hct (36.0-46.0) % MCV (80.0-98.0) fL MCH (27.0-32.0) pg MCHC (31.0-37.0) g/dL RDW Std Deviation (28.0-62.0) fl RDW Coeff of [place] (11.0-15.0) % Plt Count (150-400) K/uL MPV (7.40-12.00) fL Neut % (Auto) (48.0-80.0) % Lymph % (Auto) (16.0-40.0) % [place] % (Auto) (0.0-15.0) % Eos % (Auto) (0.0-7.0) % Baso % (Auto) (0.0-1.5) % Neut # (Auto) (1.4-5.7) K/uL Lymph # (Auto) (0.6-2.4) K/uL [place] # (Auto) (0.0-0.8) K/uL Eos # (Auto) (0.0-0.7) K/uL Baso # (Auto) (0.0-0.1) K/uL Nucleated RBC % /100WBC Nucleated RBCs # K/uL Lactate (0.20-2.00) mmol/L Sodium (136-145) mmol/L Potassium (3.5-5.1) mmol/L Chloride (98-107) mmol/L Carbon Dioxide (21.0-32.0) mmol/L BUN (7.0-18.0) mg/dL Creatinine (0.6-1.0) mg/dL Est Cr Clr Drug Dosing mL/min Estimated GFR (MDRD) ml/min Glucose (74-106) mg/dL Calcium (8.5-10.1) mg/dL Total Bilirubin (0.2-1.0) mg/dL AST (15-37) IU/L ALT (14-63) IU/L Alkaline Phosphatase (46-116) U/L Total Protein (6.4-8.2) g/dL Albumin (3.4-5.0) g/dL Globulin (2.6-4.0) g/dL Albumin/Globulin Ratio (0.9-1.6) Urine Color YELLOW Urine Appearance CLEAR Urine pH 5.0 (5.0-8.0) Ur Specific [place] <= 1.005 (1.001-1.035) Urine Protein NEGATIVE (NEGATIVE) mg/dL Urine Glucose (UA) NEGATIVE (NEGATIVE) mg/dL Urine Ketones NEGATIVE (NEGATIVE) mg/dL Urine Occult Blood NEGATIVE (NEGATIVE) Urine Nitrite NEGATIVE (NEGATIVE) Urine Bilirubin NEGATIVE (NEGATIVE) Urine Urobilinogen 0.2 (<2.0) EU/dL Ur Leukocyte Esterase NEGATIVE (NEGATIVE) COVID-19 (JOSE CARLOS) NEGATIVE (NEGATIVE) Result Diagrams: 04/26/20 10:17 04/26/20 10:17 Ha Results Last 24 hrs: Microbiology 04/26/20 16:22 Anaerobic Blood Culture - Final Blood - Venous - Lab Draw Sepsis Event Note - Focused Exam Vital Signs: Vital Signs Temp Pulse Resp BP Pulse Ox 04/26/20 19:30 37.3 C 61 152/70 H 96 04/26/20 14:42 36.4 C 62 17 134/56 L 96 04/26/20 11:46 64 18 148/55 H 95 Date Exam was Performed: 04/26/20 Time Exam was Performed: 22:48 Orders Last 24hrs: Active Orders 24 hr Category Date Time Status Admission Status [Patient Status] [ADT] Stat ADT 04/26/20 13:02 Active Communication Order [RC] ROUTINE Care 04/26/20 16:21 Active Intake and Output [RC] QSHIFT Care 04/26/20 14:42 Active Oxygen Therapy [RC] PRN Care 04/26/20 14:42 Active RT Post Treatment Assessment [RC] Click to Edit Care 04/26/20 15:26 Active RT Pre-Treatment Assessment [RC] Click to Edit Care 04/26/20 15:26 Active Up With Assistance [RC] ASDIRECTED Care 04/26/20 14:42 Active VTE/DVT Education [RC] PER UNIT ROUTINE Care 04/26/20 14:42 Active Vital Signs [RC] Q4H Care 04/26/20 14:42 Active NPO [Nothing Per Oral Diet] [DIET] Diet 04/26/20 Dinner Active CBC WITH AUTO DIFF [HEME] AM Lab 04/27/20 05:11 Ordered COMPREHENSIVE METABOLIC PN,CMP [CHEM] AM Lab 04/27/20 05:11 Ordered CULTURE BLOOD [BC] Stat Lab 04/26/20 16:12 Received CULTURE BLOOD [BC] Stat Lab 04/26/20 16:22 Results MAGNESIUM [CHEM] AM Lab 04/27/20 05:11 Ordered ALPRAZolam [Xanax] Med 04/26/20 15:29 Active 0.5 mg PO BEDTIME PRN Albuterol [Ventolin HFA] Med 04/26/20 15:28 Active 0 gm INH Q4H PRN Enoxaparin [Lovenox] Med 04/26/20 16:00 Active 40 mg SUBCUT Q24H Isosorbide Mononitrate [Imdur] Med 04/27/20 09:00 Active 30 mg PO DAILY Ketorolac [Toradol] Med 04/26/20 15:10 Active 15 mg IVPUSH Q6H PRN Lactated Ringers [Ringers, Lactated] 1,000 ml Med 04/26/20 14:45 Active IV Q8H Levothyroxine [Synthroid] Med 04/27/20 07:30 Active 50 mcg PO ACBREAKFAST Montelukast [Singulair] Med 04/27/20 09:00 Active 5 mg PO DAILY Ondansetron [Zofran] Med 04/26/20 14:42 Active 4 mg IVPUSH Q4H PRN Patient's Own Medication [Ptom] Med 04/26/20 21:00 Active 0 each INH BIDRT Piperacillin/Tazobactam [Piperacil-Tazobact] 3.375 gm Med 04/26/20 14:45 Active Sodium Chloride 0.9% [Normal Saline] 50 ml IV Q6H Sodium Chloride 0.9% [Saline Flush] Med 04/26/20 10:04 Active 2.5 ml FLUSH ASDIRECTED PRN hydrALAZINE [Apresoline] Med 04/26/20 22:22 Active 20 mg IVPUSH Q6H PRN Blood Culture x2 Reflex Set [OM.PC] Stat Oth 04/26/20 15:37 Ordered Saline Lock Insert [OM.PC] Stat Oth 04/26/20 10:04 Ordered Resuscitation Status Routine Resus Stat 04/26/20 14:42 Ordered Medication Orders Albuterol (Ventolin Hfa) 0 gm INH Q4H PRN PRN Reason: Shortness of Breath Alprazolam (Xanax) 0.5 mg PO BEDTIME PRN PRN Reason: Anxiety Enoxaparin Sodium (Lovenox) 40 mg SUBCUT Q24H LOBO Last Admin: 08/07/20 16:18 Dose: 40 mg Documented by: BAKEMOL Hydralazine HCl (Apresoline) 20 mg IVPUSH Q6H PRN PRN Reason: Hypertension Lactated Ringer's (Ringers, Lactated) 1,000 mls @ 125 mls/hr IV Q8H [facility] Last Admin: 04/26/20 16:18 Dose: 125 mls/hr Documented by: ANTONETTEEMTHOR Piperacillin Sod/Tazobactam (Sod 3.375 gm/ Sodium Chloride) 50 mls @ 100 mls/hr IV Q6H [facility] Last Admin: 04/26/20 20:46 Dose: 100 mls/hr Documented by: Infusion: 04/26/20 16:48 Dose: 100 mls/hr Documented by: Admin: 04/26/20 16:18 Dose: 100 mls/hr Documented by: RACHAEL Isosorbide Mononitrate (Imdur) 30 mg PO DAILY [facility] Ketorolac Tromethamine (Toradol) 15 mg IVPUSH Q6H PRN PRN Reason: Pain Levothyroxine Sodium (Synthroid) 50 mcg PO ACBREAKFAST [facility] Montelukast Sodium (Singulair) 5 mg PO DAILY [facility] Ondansetron HCl (Zofran) 4 mg IVPUSH Q4H PRN PRN Reason: Nausea Budesonide/Formoterol 160-4.5 Mcg/Puff 6 Gm Inhaler Own Med 0 each INH BIDRT [facility] Last Admin: 04/26/20 20:47 Dose: 1 each Documented by: MARINA Sodium Chloride (Saline Flush) 2.5 ml FLUSH ASDIRECTED PRN PRN Reason: Keep Vein Open Last Admin: 04/26/20 10:29 Dose: 2.5 ml Documented by: ALENA
[2020-04-26] MEDS ORDERED: Albuterol 8 GM Inhaler INH PRN (15:28)
[2020-04-26] MEDS: Lactated Ringers 1,000 ML IV SCH (16:18)
[2020-04-26] MEDS: Enoxaparin 40 MG/0.4 ML Syringe SUBCUT SCH (16:18)
[2020-04-26] MEDS: Piperacillin/Tazobactam 3.375 GM in Sodium Chloride 0.9% 50 ML IV SCH ×2 (16:18→20:46)
--- NOTE | 2020-04-26 18:40 | CONS ---
DATE OF CONSULTATION: 04/26/2020 DATE OF : 1950 PRIMARY CARE PHYSICIAN: Altaf Rosenberg M.D. REASON FOR CONSULTATION: Consult from Dr. Saavedra and Janae, ER provider. Consulting question is flare up of diverticulitis. HISTORY OF PRESENT ILLNESS: The patient is 69-year-old obese lady and complained of a 2-week history of diarrhea and abdominal pain. Apparently, the patient saw her primary care provider and was started on antibiotic 2 days ago, but pain did not get better, so came in the emergency room, got a CAT scan. It shows a possible 1.7 cm collection or ovarian cyst in the neighborhood. The patient was admitted to Dr. Saavedra's hospitalist service, and Dr. Arshad was consulted for help in the management. The patient had a similar episode in 2017. White count was 18,000 and seen by my colleague, Dr. Welch, and conservative management for only 24 hours. She responded to IV antibiotic, was sent home. She got a colonoscopy in 2018, one year later at [place]. I guess over there better food, better treatment. Report is not available for the time being. Today, she thinks that her pain prior to coming to the hospital was about 8/10 on a 10 pain scale. Currently, she denied absolutely no pain, although she has some pain medication. ALLERGIES: Please refer to nursing note for details. MEDICATIONS: Please refer to nursing note for details. FAMILY HISTORY: Noncontributory. PAST MEDICAL HISTORY: Denied diabetes, OK, CVA. The patient has hypertension, on medication. PAST SURGICAL HISTORY: Laparoscopic cholecystectomy and colonoscopy. SOCIAL HISTORY: Denied tobacco or alcohol abuse. PHYSICAL EXAMINATION: GENERAL: A very pleasant lady in absolutely no acute distress HEENT: Normocephalic, atraumatic. Sclerae anicteric. LUNGS: Clear to auscultation. HEART: Regular rate and rhythm. ABDOMEN: Mild tenderness on the left lower quadrant and no rebound tenderness. A well-healed laparoscopic surgical scar. No hernia appreciated. LABORATORY DATA: On examination, white count was 15. CAT scan reports mildly inflammatory on the sigmoid colon with a 1.7 cm either collection or ovarian cyst. IMPRESSION: Diverticulitis and flare up the second time. Will benefit from n.p.o., IV fluids, and IV antibiotics. When pain is completely resolved, would benefit from complete 3 weeks of Levaquin plus Flagyl, and I will be more than happy to see her in my office if discharged and will follow with you on the patient. Again, IV fluids, n.p.o., Protonix, and IV Flagyl and IV Levaquin. With another flare up, probably will benefit to have a colonoscopy 6 to 8 weeks from now and should please request her colonoscopy report from wherever the [facility] is. We will follow the patient with you. Thanks for the consult. As always, thank you for the kind referral. JUDITH GRISSOM /[id number] [place]
[2020-04-26] MEDS: BUDESONIDE INH SCH (20:47)
[2020-04-26] MEDS: FORMOTEROL INH SCH (20:47)
[2020-04-26] MEDS ORDERED: hydrALAZINE 20 MG/ML SDV IVPUSH PRN (22:22)
[2020-04-27] MEDS: Lactated Ringers 1,000 ML IV SCH ×2 (00:01→06:45)
[2020-04-27] MEDS: Piperacillin/Tazobactam 3.375 GM in Sodium Chloride 0.9% 50 ML IV SCH ×4 (02:50→21:05)
[2020-04-27] MEDS: ALPRAZolam 0.5 MG Tab PO PRN ×2 (05:13→21:05)
[2020-04-27] MEDS: FORMOTEROL INH SCH ×2 (05:58→21:05)
[2020-04-27] MEDS: BUDESONIDE INH SCH ×2 (05:58→21:05)
[2020-04-27 06:35] LABS: CARBON DIOXIDE,CO2 26.1 mmol/L (21.0-32.0); POTASSIUM,K 3.8 mmol/L (3.5-5.1)
[2020-04-27] MEDS: Levothyroxine 50 MCG Tab PO SCH (06:41)
[2020-04-27] MEDS: Montelukast 10 MG Tab PO SCH (09:16)
[2020-04-27] MEDS: Isosorbide Mononitrate 30 MG Tab.ER PO SCH (09:16)
--- NOTE | 2020-04-27 09:31 | PCM.SURGPN ---
- General Info Date of Service: 04/27/20 Functional Status: Reports: Pain Controlled - Review of Systems General: Reports: No Symptoms (afeb, wbc 11) - Patient Data Vitals - Most Recent: Last Vital Signs Temp 98.3 F 04/27/20 07:40 Pulse 67 04/27/20 07:40 Resp 18 04/27/20 07:40 BP 151/67 H 04/27/20 09:16 Pulse Ox 95 04/27/20 07:40 Weight - Most Recent: 220 lb I&O - Last 24 Hours: Intake & Output 04/26/20 04/27/20 04/27/20 22:59 06:59 14:59 Intake Total 889 Output Total 700 Balance 189 Lab Results Last 24 Hrs: Laboratory Results - last 24 hr 04/26/20 04/26/20 04/26/20 Range/Units 10:17 10:17 10:17 WBC 15.08 H (4.0-11.0) K/uL RBC 4.19 L (4.30-5.90) M/uL Hgb 12.8 (12.0-16.0) g/dL Hct 40.4 (36.0-46.0) % MCV 96.4 (80.0-98.0) fL MCH 30.5 (27.0-32.0) pg MCHC 31.7 (31.0-37.0) g/dL RDW Std Deviation 47.5 (28.0-62.0) fl RDW Coeff of Jessika 13 (11.0-15.0) % Plt Count 358 (150-400) K/uL MPV 9.80 (7.40-12.00) fL Neut % (Auto) 80.9 H (48.0-80.0) % Lymph % (Auto) 10.1 L (16.0-40.0) % Nance % (Auto) 7.4 (0.0-15.0) % Eos % (Auto) 1.4 (0.0-7.0) % Baso % (Auto) 0.2 (0.0-1.5) % Neut # (Auto) 12.2 H (1.4-5.7) K/uL Lymph # (Auto) 1.5 (0.6-2.4) K/uL Nance # (Auto) 1.1 H (0.0-0.8) K/uL Eos # (Auto) 0.2 (0.0-0.7) K/uL Baso # (Auto) 0.0 (0.0-0.1) K/uL Nucleated RBC % 0.0 /100WBC Nucleated RBCs # 0 K/uL Lactate 0.8 (0.20-2.00) mmol/L Sodium 141 (136-145) mmol/L Potassium 3.8 (3.5-5.1) mmol/L Chloride 104 (98-107) mmol/L Carbon Dioxide 28.4 (21.0-32.0) mmol/L BUN 18 (7.0-18.0) mg/dL Creatinine 1.1 H (0.6-1.0) mg/dL Est Cr Clr Drug Dosing 44.66 mL/min Estimated GFR (MDRD) 49.5 ml/min Glucose 128 H (74-106) mg/dL Calcium 8.8 (8.5-10.1) mg/dL Magnesium (1.8-2.4) mg/dL Total Bilirubin 0.4 (0.2-1.0) mg/dL AST 18 (15-37) IU/L ALT 22 (14-63) IU/L Alkaline Phosphatase 129 H (46-116) U/L Total Protein 8.5 H (6.4-8.2) g/dL Albumin 3.4 (3.4-5.0) g/dL Globulin 5.1 H (2.6-4.0) g/dL Albumin/Globulin Ratio 0.7 L (0.9-1.6) Urine Color Urine Appearance Urine pH (5.0-8.0) Ur Specific [place] (1.001-1.035) Urine Protein (NEGATIVE) mg/dL Urine Glucose (UA) (NEGATIVE) mg/dL Urine Ketones (NEGATIVE) mg/dL Urine Occult Blood (NEGATIVE) Urine Nitrite (NEGATIVE) Urine Bilirubin (NEGATIVE) Urine Urobilinogen (<2.0) EU/dL Ur Leukocyte Esterase (NEGATIVE) COVID-19 (JOSE CARLOS) (NEGATIVE) 04/26/20 04/26/20 04/27/20 Range/Units 11:55 12:04 05:33 WBC 11.23 H (4.0-11.0) K/uL RBC 3.83 L (4.30-5.90) M/uL Hgb 11.4 L (12.0-16.0) g/dL Hct 37.2 (36.0-46.0) % MCV 97.1 (80.0-98.0) fL MCH 29.8 (27.0-32.0) pg MCHC 30.6 L (31.0-37.0) g/dL RDW Std Deviation 48.3 (28.0-62.0) fl RDW Coeff of Jessika 14 (11.0-15.0) % Plt Count 330 (150-400) K/uL MPV 10.10 (7.40-12.00) fL Neut % (Auto) 76.5 (48.0-80.0) % Lymph % (Auto) 13.6 L (16.0-40.0) % Nance % (Auto) 7.3 (0.0-15.0) % Eos % (Auto) 2.4 (0.0-7.0) % Baso % (Auto) 0.2 (0.0-1.5) % Neut # (Auto) 8.6 H (1.4-5.7) K/uL Lymph # (Auto) 1.5 (0.6-2.4) K/uL Nance # (Auto) 0.8 (0.0-0.8) K/uL Eos # (Auto) 0.3 (0.0-0.7) K/uL Baso # (Auto) 0.0 (0.0-0.1) K/uL Nucleated RBC % 0.0 /100WBC Nucleated RBCs # 0 K/uL Lactate (0.20-2.00) mmol/L Sodium (136-145) mmol/L Potassium (3.5-5.1) mmol/L Chloride (98-107) mmol/L Carbon Dioxide (21.0-32.0) mmol/L BUN (7.0-18.0) mg/dL Creatinine (0.6-1.0) mg/dL Est Cr Clr Drug Dosing mL/min Estimated GFR (MDRD) ml/min Glucose (74-106) mg/dL Calcium (8.5-10.1) mg/dL Magnesium (1.8-2.4) mg/dL Total Bilirubin (0.2-1.0) mg/dL AST (15-37) IU/L ALT (14-63) IU/L Alkaline Phosphatase (46-116) U/L Total Protein (6.4-8.2) g/dL Albumin (3.4-5.0) g/dL Globulin (2.6-4.0) g/dL Albumin/Globulin Ratio (0.9-1.6) Urine Color YELLOW Urine Appearance CLEAR Urine pH 5.0 (5.0-8.0) Ur Specific [place] <= 1.005 (1.001-1.035) Urine Protein NEGATIVE (NEGATIVE) mg/dL Urine Glucose (UA) NEGATIVE (NEGATIVE) mg/dL Urine Ketones NEGATIVE (NEGATIVE) mg/dL Urine Occult Blood NEGATIVE (NEGATIVE) Urine Nitrite NEGATIVE (NEGATIVE) Urine Bilirubin NEGATIVE (NEGATIVE) Urine Urobilinogen 0.2 (<2.0) EU/dL Ur Leukocyte Esterase NEGATIVE (NEGATIVE) COVID-19 (JOSE CARLOS) NEGATIVE (NEGATIVE) 04/27/20 Range/Units 05:33 WBC (4.0-11.0) K/uL RBC (4.30-5.90) M/uL Hgb (12.0-16.0) g/dL Hct (36.0-46.0) % MCV (80.0-98.0) fL MCH (27.0-32.0) pg MCHC (31.0-37.0) g/dL RDW Std Deviation (28.0-62.0) fl RDW Coeff of Jessika (11.0-15.0) % Plt Count (150-400) K/uL MPV (7.40-12.00) fL Neut % (Auto) (48.0-80.0) % Lymph % (Auto) (16.0-40.0) % Nance % (Auto) (0.0-15.0) % Eos % (Auto) (0.0-7.0) % Baso % (Auto) (0.0-1.5) % Neut # (Auto) (1.4-5.7) K/uL Lymph # (Auto) (0.6-2.4) K/uL Nance # (Auto) (0.0-0.8) K/uL Eos # (Auto) (0.0-0.7) K/uL Baso # (Auto) (0.0-0.1) K/uL Nucleated RBC % /100WBC Nucleated RBCs # K/uL Lactate (0.20-2.00) mmol/L Sodium 142 (136-145) mmol/L Potassium 3.8 (3.5-5.1) mmol/L Chloride 106 (98-107) mmol/L Carbon Dioxide 26.1 (21.0-32.0) mmol/L BUN 17 (7.0-18.0) mg/dL Creatinine 1.1 H (0.6-1.0) mg/dL Est Cr Clr Drug Dosing 44.66 mL/min Estimated GFR (MDRD) 49.5 ml/min Glucose 102 (74-106) mg/dL Calcium 8.7 (8.5-10.1) mg/dL Magnesium 1.9 (1.8-2.4) mg/dL Total Bilirubin 0.3 (0.2-1.0) mg/dL AST 17 (15-37) IU/L ALT 20 (14-63) IU/L Alkaline Phosphatase 114 (46-116) U/L Total Protein 7.7 (6.4-8.2) g/dL Albumin 3.0 L (3.4-5.0) g/dL Globulin 4.7 H (2.6-4.0) g/dL Albumin/Globulin Ratio 0.6 L (0.9-1.6) Urine Color Urine Appearance Urine pH (5.0-8.0) Ur Specific [place] (1.001-1.035) Urine Protein (NEGATIVE) mg/dL Urine Glucose (UA) (NEGATIVE) mg/dL Urine Ketones (NEGATIVE) mg/dL Urine Occult Blood (NEGATIVE) Urine Nitrite (NEGATIVE) Urine Bilirubin (NEGATIVE) Urine Urobilinogen (<2.0) EU/dL Ur Leukocyte Esterase (NEGATIVE) COVID-19 (JOSE CARLOS) (NEGATIVE) Ha Results Last 24 Hrs: Microbiology 04/26/20 16:22 Anaerobic Blood Culture - Final Blood - Venous - Lab Draw Med Orders - Current: Current Medications Albuterol (Ventolin Hfa) 0 gm INH Q4H PRN PRN Reason: Shortness of Breath Alprazolam (Xanax) 0.5 mg PO BEDTIME PRN PRN Reason: Anxiety Last Admin: 04/27/20 05:13 Dose: 0.5 mg Documented by: Enoxaparin Sodium (Lovenox) 40 mg SUBCUT Q24H [facility] Last Admin: 04/26/20 16:18 Dose: 40 mg Documented by: Hydralazine HCl (Apresoline) 20 mg IVPUSH Q6H PRN PRN Reason: Hypertension Lactated Ringer's (Ringers, Lactated) 1,000 mls @ 125 mls/hr IV Q8H [facility] Last Admin: 04/27/20 06:45 Dose: 125 mls/hr Documented by: Piperacillin Sod/Tazobactam (Sod 3.375 gm/ Sodium Chloride) 50 mls @ 100 mls/hr IV Q6H [facility] Last Admin: 04/27/20 09:20 Dose: 100 mls/hr Documented by: Isosorbide Mononitrate (Imdur) 30 mg PO DAILY [facility] Last Admin: 04/27/20 09:16 Dose: 30 mg Documented by: Ketorolac Tromethamine (Toradol) 15 mg IVPUSH Q6H PRN PRN Reason: Pain Levothyroxine Sodium (Synthroid) 50 mcg PO ACBREAKFAST [facility] Last Admin: 04/27/20 06:41 Dose: 50 mcg Documented by: Montelukast Sodium (Singulair) 5 mg PO DAILY [facility] Last Admin: 04/27/20 09:16 Dose: 5 mg Documented by: Ondansetron HCl (Zofran) 4 mg IVPUSH Q4H PRN PRN Reason: Nausea Last Admin: 04/27/20 03:17 Dose: 4 mg Documented by: Budesonide/Formoterol 160-4.5 Mcg/Puff 6 Gm Inhaler Own Med 0 each INH BIDRT [facility] Last Admin: 04/27/20 05:58 Dose: 2 each Documented by: Sodium Chloride (Saline Flush) 2.5 ml FLUSH ASDIRECTED PRN PRN Reason: Keep Vein Open Last Admin: 04/26/20 10:29 Dose: 2.5 ml Documented by: Discontinued Medications Lactated Ringer's (Ringers, Lactated) 1,000 mls @ 150 mls/hr IV ASDIRECTED [facility] Last Admin: 04/26/20 10:29 Dose: 150 mls/hr Documented by: Ceftriaxone Sodium/Dextrose 1 (gm/ Premix) 50 mls @ 100 mls/hr IV ONETIME ONE Stop: 04/26/20 12:02 Last Admin: 04/26/20 11:45 Dose: 100 mls/hr Documented by: Metronidazole 500 mg/ Premix 100 mls @ 100 mls/hr IV ONETIME ONE Stop: 04/26/20 12:47 Last Admin: 04/26/20 12:33 Dose: 100 mls/hr Documented by: Iopamidol (Isovue Multipack-370 (76%)) 100 ml IVPUSH ONETIME ONE Stop: 04/26/20 11:39 Last Admin: 04/26/20 11:38 Dose: 100 ml Documented by: Ketorolac Tromethamine (Toradol) 30 mg IVPUSH ONETIME ONE Stop: 04/26/20 10:18 Last Admin: 04/26/20 10:29 Dose: 30 mg Documented by: Ondansetron HCl (Zofran) 4 mg IVPUSH ONETIME ONE Stop: 04/26/20 10:18 Last Admin: 04/26/20 10:29 Dose: 4 mg Documented by: Sodium Chloride (Saline Flush) 10 ml FLUSH ASDIRECTED PRN PRN Reason: Keep Vein Open Last Admin: 04/26/20 10:29 Dose: 10 ml Documented by: - Exam GI/Abdominal Exam: Normal Bowel Sounds, Soft, Non-Tender Sepsis Event Note - Evaluation Sepsis Screening Result: No Definite Risk - Focused Exam Vital Signs: Vital Signs Temp Pulse Resp BP BP Pulse Ox 04/27/20 09:16 151/67 H 04/27/20 07:40 98.3 F 67 18 151/67 H 95 04/27/20 04:16 97.3 F 69 16 138/64 93 L 04/26/20 23:59 97 F 64 18 141/65 H 95 Date Exam was Performed: 04/27/20 Time Exam was Performed: 09:27 - Problem List Review Problem List Initiated/Reviewed/Updated: Yes - My Orders Last 24 Hours: Active Orders 24 hr Category Date Time Status Admission Status [Patient Status] [ADT] Stat ADT 04/26/20 13:02 Active Communication Order [RC] ROUTINE Care 04/26/20 16:21 Active Intake and Output [RC] Q12H Care 04/26/20 14:42 Active Oxygen Therapy [RC] PRN Care 04/26/20 14:42 Active RT Post Treatment Assessment [RC] Click to Edit Care 04/26/20 15:26 Active RT Pre-Treatment Assessment [RC] Click to Edit Care 04/26/20 15:26 Active Up With Assistance [RC] ASDIRECTED Care 04/26/20 14:42 Active VTE/DVT Education [RC] PER UNIT ROUTINE Care 04/26/20 14:42 Active Vital Signs [RC] Q4H Care 04/26/20 14:42 Active Full Liquid Diet [DIET] Diet 04/27/20 Breakfast Active CULTURE BLOOD [BC] Stat Lab 04/26/20 16:12 Received CULTURE BLOOD [BC] Stat Lab 04/26/20 16:22 Results ALPRAZolam [Xanax] Med 04/26/20 15:29 Active 0.5 mg PO BEDTIME PRN Albuterol [Ventolin HFA] Med 04/26/20 15:28 Active 0 gm INH Q4H PRN Enoxaparin [Lovenox] Med 04/26/20 16:00 Active 40 mg SUBCUT Q24H Isosorbide Mononitrate [Imdur] Med 04/27/20 09:00 Active 30 mg PO DAILY Ketorolac [Toradol] Med 04/26/20 15:10 Active 15 mg IVPUSH Q6H PRN Lactated Ringers [Ringers, Lactated] 1,000 ml Med 04/26/20 14:45 Active IV Q8H Levothyroxine [Synthroid] Med 04/27/20 07:30 Active 50 mcg PO ACBREAKFAST Montelukast [Singulair] Med 04/27/20 09:00 Active 5 mg PO DAILY Ondansetron [Zofran] Med 04/26/20 14:42 Active 4 mg IVPUSH Q4H PRN Patient's Own Medication [Ptom] Med 04/26/20 21:00 Active 0 each INH BIDRT Piperacillin/Tazobactam [Piperacil-Tazobact] 3.375 gm Med 04/26/20 14:45 Active Sodium Chloride 0.9% [Normal Saline] 50 ml IV Q6H Sodium Chloride 0.9% [Saline Flush] Med 04/26/20 10:04 Active 2.5 ml FLUSH ASDIRECTED PRN hydrALAZINE [Apresoline] Med 04/26/20 22:22 Active 20 mg IVPUSH Q6H PRN Blood Culture x2 Reflex Set [OM.PC] Stat Ot 04/26/20 15:37 Ordered Saline Lock Insert [OM.PC] Stat Ot 04/26/20 10:04 Ordered Resuscitation Status Routine Resus Stat 04/26/20 14:42 Ordered Medication Orders Albuterol (Ventolin Hfa) 0 gm INH Q4H PRN PRN Reason: Shortness of Breath Alprazolam (Xanax) 0.5 mg PO BEDTIME PRN PRN Reason: Anxiety Last Admin: 04/27/20 05:13 Dose: 0.5 mg Documented by: MARINA Enoxaparin Sodium (Lovenox) 40 mg SUBCUT Q24H [facility] Last Admin: 04/26/20 16:18 Dose: 40 mg Documented by: BAKEMTHOR Hydralazine HCl (Apresoline) 20 mg IVPUSH Q6H PRN PRN Reason: Hypertension Lactated Ringer's (Ringers, Lactated) 1,000 mls @ 125 mls/hr IV Q8H [facility] Last Admin: 04/27/20 06:45 Dose: 125 mls/hr Documented by: Infusion: 04/27/20 06:45 Dose: 125 mls/hr Documented by: Admin: 04/27/20 00:01 Dose: 125 mls/hr Documented by: Infusion: 04/27/20 00:01 Dose: 125 mls/hr Documented by: Admin: 04/26/20 16:18 Dose: 125 mls/hr Documented by: RACHAEL Piperacillin Sod/Tazobactam (Sod 3.375 gm/ Sodium Chloride) 50 mls @ 100 mls/hr IV Q6H [facility] Last Admin: 04/27/20 09:20 Dose: 100 mls/hr Documented by: Infusion: 04/27/20 03:20 Dose: 100 mls/hr Documented by: Admin: 04/27/20 02:50 Dose: 100 mls/hr Documented by: Infusion: 04/26/20 21:16 Dose: 100 mls/hr Documented by: Admin: 04/26/20 20:46 Dose: 100 mls/hr Documented by: Infusion: 04/26/20 16:48 Dose: 100 mls/hr Documented by: Admin: 04/26/20 16:18 Dose: 100 mls/hr Documented by: BAKEMOL Isosorbide Mononitrate (Imdur) 30 mg PO DAILY [facility] Last Admin: 04/27/20 09:16 Dose: 30 mg Documented by: SILAS Ketorolac Tromethamine (Toradol) 15 mg IVPUSH Q6H PRN PRN Reason: Pain Levothyroxine Sodium (Synthroid) 50 mcg PO ACBREAKFAST [facility] Last Admin: 04/27/20 06:41 Dose: 50 mcg Documented by: MARINA Montelukast Sodium (Singulair) 5 mg PO DAILY [facility] Last Admin: 04/27/20 09:16 Dose: 5 mg Documented by: SILAS Ondansetron HCl (Zofran) 4 mg IVPUSH Q4H PRN PRN Reason: Nausea Last Admin: 04/27/20 03:17 Dose: 4 mg Documented by: MARINA Budesonide/Formoterol 160-4.5 Mcg/Puff 6 Gm Inhaler Own Med 0 each INH BIDRT [facility] Last Admin: 04/27/20 05:58 Dose: 2 each Documented by: Admin: 04/26/20 20:47 Dose: 1 each Documented by: MARINA Sodium Chloride (Saline Flush) 2.5 ml FLUSH ASDIRECTED PRN PRN Reason: Keep Vein Open Last Admin: 04/26/20 10:29 Dose: 2.5 ml Documented by: ALENA - Assessment Assessment (Free Text/Narrative):: hd#1 w iv abx for diverticulitis; doing very well w iv abx; pt remarked no pain at all! and is hungry; start po full liquid, and another day for iv abx, then if continue to do well, switch to po abx X 3 wks; 8 wks later a colonoscopy to assess diverticulitis; home on low fiber diet X 3 month; will sign off, recall if question; thanks for the consult and the opportunity to help in take care of the pleasant patient; - Plan Plan (Free Text/Narrative):: hd#1 w iv abx for diverticulitis; doing very well w iv abx; pt remarked no pain at all! and is hungry; start po full liquid, and another day for iv abx, then if continue to do well, switch to po abx X 3 wks; 8 wks later a colonoscopy to assess diverticulitis; home on low fiber diet X 3 month; will sign off, recall if question; thanks for the consult and the opportunity to help in take care of the pleasant patient;
[2020-04-27] MEDS ORDERED: Lactated Ringers 500 ML IV ONE (11:12)
[2020-04-27] MEDS: Pantoprazole 40 MG in Sodium Chloride 0.9% 10 ML IV SCH (11:58)
--- NOTE | 2020-04-27 12:52 | PCM.PN ---
<Kyle Montgomery M - Last Filed: 04/27/20 12:48> - General Info Date of Service: 04/27/20 Subjective Update: Denies any abdominal pain, vomiting or diarrhea this morning. Reports mild nausea yesterday evening. No fevers or chills. States that she is hungry and would like to eat. - Patient Data Vitals - Most Recent: Last Vital Signs Temp 36.2 C 04/27/20 11:00 Pulse 62 04/27/20 11:00 Resp 16 04/27/20 11:00 BP 141/61 H 04/27/20 11:00 Pulse Ox 95 04/27/20 11:00 Weight - Most Recent: 99.79 kg I&O - Last 24 Hours: Intake & Output 04/26/20 04/27/20 04/27/20 22:59 06:59 14:59 Intake Total 889 Output Total 700 Balance 189 Lab Results Last 24 Hours: Laboratory Results - last 24 hr 04/27/20 04/27/20 Range/Units 05:33 05:33 WBC 11.23 H (4.0-11.0) K/uL RBC 3.83 L (4.30-5.90) M/uL Hgb 11.4 L (12.0-16.0) g/dL Hct 37.2 (36.0-46.0) % MCV 97.1 (80.0-98.0) fL MCH 29.8 (27.0-32.0) pg MCHC 30.6 L (31.0-37.0) g/dL RDW Std Deviation 48.3 (28.0-62.0) fl RDW Coeff of Jessika 14 (11.0-15.0) % Plt Count 330 (150-400) K/uL MPV 10.10 (7.40-12.00) fL Neut % (Auto) 76.5 (48.0-80.0) % Lymph % (Auto) 13.6 L (16.0-40.0) % Wells % (Auto) 7.3 (0.0-15.0) % Eos % (Auto) 2.4 (0.0-7.0) % Baso % (Auto) 0.2 (0.0-1.5) % Neut # (Auto) 8.6 H (1.4-5.7) K/uL Lymph # (Auto) 1.5 (0.6-2.4) K/uL Wells # (Auto) 0.8 (0.0-0.8) K/uL Eos # (Auto) 0.3 (0.0-0.7) K/uL Baso # (Auto) 0.0 (0.0-0.1) K/uL Nucleated RBC % 0.0 /100WBC Nucleated RBCs # 0 K/uL Sodium 142 (136-145) mmol/L Potassium 3.8 (3.5-5.1) mmol/L Chloride 106 (98-107) mmol/L Carbon Dioxide 26.1 (21.0-32.0) mmol/L BUN 17 (7.0-18.0) mg/dL Creatinine 1.1 H (0.6-1.0) mg/dL Est Cr Clr Drug Dosing 44.66 mL/min Estimated GFR (MDRD) 49.5 ml/min Glucose 102 (74-106) mg/dL Calcium 8.7 (8.5-10.1) mg/dL Magnesium 1.9 (1.8-2.4) mg/dL Total Bilirubin 0.3 (0.2-1.0) mg/dL AST 17 (15-37) IU/L ALT 20 (14-63) IU/L Alkaline Phosphatase 114 (46-116) U/L Total Protein 7.7 (6.4-8.2) g/dL Albumin 3.0 L (3.4-5.0) g/dL Globulin 4.7 H (2.6-4.0) g/dL Albumin/Globulin Ratio 0.6 L (0.9-1.6) Ha Results Last 24 Hours: Microbiology 04/26/20 16:22 Anaerobic Blood Culture - Final Blood - Venous - Lab Draw Med Orders - Current: Current Medications Albuterol (Ventolin Hfa) 0 gm INH Q4H PRN PRN Reason: Shortness of Breath Alprazolam (Xanax) 0.5 mg PO BEDTIME PRN PRN Reason: Anxiety Last Admin: 04/27/20 05:13 Dose: 0.5 mg Documented by: Enoxaparin Sodium (Lovenox) 40 mg SUBCUT Q24H [facility] Last Admin: 04/26/20 16:18 Dose: 40 mg Documented by: Hydralazine HCl (Apresoline) 20 mg IVPUSH Q6H PRN PRN Reason: Hypertension Piperacillin Sod/Tazobactam (Sod 3.375 gm/ Sodium Chloride) 50 mls @ 100 mls/hr IV Q6H [facility] Last Admin: 04/27/20 09:20 Dose: 100 mls/hr Documented by: Pantoprazole Sodium 40 mg/ (Sodium Chloride) 10 mls @ 300 mls/hr IV DAILY [facility] Last Admin: 04/27/20 11:58 Dose: 300 mls/hr Documented by: Isosorbide Mononitrate (Imdur) 30 mg PO DAILY [facility] Last Admin: 04/27/20 09:16 Dose: 30 mg Documented by: Ketorolac Tromethamine (Toradol) 15 mg IVPUSH Q6H PRN PRN Reason: Pain Levothyroxine Sodium (Synthroid) 50 mcg PO ACBREAKFAST [facility] Last Admin: 04/27/20 06:41 Dose: 50 mcg Documented by: Montelukast Sodium (Singulair) 5 mg PO DAILY [facility] Last Admin: 04/27/20 09:16 Dose: 5 mg Documented by: Ondansetron HCl (Zofran) 4 mg IVPUSH Q4H PRN PRN Reason: Nausea Last Admin: 04/27/20 03:17 Dose: 4 mg Documented by: Budesonide/Formoterol 160-4.5 Mcg/Puff 6 Gm Inhaler Own Med 0 each INH BIDRT [facility] Last Admin: 04/27/20 05:58 Dose: 2 each Documented by: Sodium Chloride (Saline Flush) 2.5 ml FLUSH ASDIRECTED PRN PRN Reason: Keep Vein Open Last Admin: 04/26/20 10:29 Dose: 2.5 ml Documented by: Discontinued Medications Lactated Ringer's (Ringers, Lactated) 1,000 mls @ 150 mls/hr IV ASDIRECTED [facility] Last Admin: 04/26/20 10:29 Dose: 150 mls/hr Documented by: Ceftriaxone Sodium/Dextrose 1 (gm/ Premix) 50 mls @ 100 mls/hr IV ONETIME ONE Stop: 04/26/20 12:02 Last Admin: 04/26/20 11:45 Dose: 100 mls/hr Documented by: Metronidazole 500 mg/ Premix 100 mls @ 100 mls/hr IV ONETIME ONE Stop: 04/26/20 12:47 Last Admin: 04/26/20 12:33 Dose: 100 mls/hr Documented by: Lactated Ringer's (Ringers, Lactated) 1,000 mls @ 125 mls/hr IV Q8H [facility] Last Admin: 04/27/20 06:45 Dose: 125 mls/hr Documented by: Lactated Ringer's (Ringers, Lactated) 500 mls @ 999 mls/hr IV .BOLUS ONE Stop: 04/27/20 11:42 Last Admin: 04/27/20 12:04 Dose: 999 mls/hr Documented by: Iopamidol (Isovue Multipack-370 (76%)) 100 ml IVPUSH ONETIME ONE Stop: 04/26/20 11:39 Last Admin: 04/26/20 11:38 Dose: 100 ml Documented by: Ketorolac Tromethamine (Toradol) 30 mg IVPUSH ONETIME ONE Stop: 04/26/20 10:18 Last Admin: 04/26/20 10:29 Dose: 30 mg Documented by: Ondansetron HCl (Zofran) 4 mg IVPUSH ONETIME ONE Stop: 04/26/20 10:18 Last Admin: 04/26/20 10:29 Dose: 4 mg Documented by: Sodium Chloride (Saline Flush) 10 ml FLUSH ASDIRECTED PRN PRN Reason: Keep Vein Open Last Admin: 04/26/20 10:29 Dose: 10 ml Documented by: - Exam General: Alert, Oriented, Cooperative, No Acute Distress Lungs: Clear to Auscultation, Normal Respiratory Effort Cardiovascular: Regular Rate, Regular Rhythm GI/Abdominal Exam: Normal Bowel Sounds, Soft, Non-Tender, No Distention Extremities: Normal Inspection, No Pedal Edema Sepsis Event Note - Evaluation Sepsis Screening Result: No Definite Risk - Focused Exam Vital Signs: Vital Signs Temp Pulse Resp BP BP Pulse Ox 04/27/20 11:00 36.2 C 62 16 141/61 H 95 04/27/20 09:16 151/67 H 04/27/20 07:40 36.8 C 67 18 151/67 H 95 04/27/20 04:16 36.3 C 69 16 138/64 93 L Date Exam was Performed: 04/27/20 Time Exam was Performed: 12:48 - Problem List Review Problem List Initiated/Reviewed/Updated: Yes - My Orders Last 24 Hours: My Active Orders 04/27/20 09:31 Consult to Physician [CONS] Routine 04/27/20 09:32 Notify Provider Consults [RC] ASDIRECTED 04/27/20 11:15 Pantoprazole [ProTONIX IV] 40 mg Sodium Chloride 0.9% [Normal Saline] 10 ml IV DAILY - Plan Plan:: Assessment and Plan: 1 Acute diverticulitis: - Advance diet to full liquids per general surgery. Will give IV LR 500 cc bolus and discontinue maintenance fluids. Continue IV zosyn. - Per general surgery, patient will require outpatient PO antibiotics for 3 weeks, recommend colonoscopy 8 weeks after and low fiber diet for 3 months. 2. Asthma: - Continue Symbicort. 3. HTN/HLD - Patient's lisinopril and HCTZ held. 4. DVT prophylaxis: Lovenox. <Keren Saavedra - Last Filed: 04/29/20 19:12> - General Info Subjective Update: I have seen and evaluated the patient and agree with the residents note unless specified in my note - Patient Data Vitals - Most Recent: Last Vital Signs Temp 36.7 C 04/29/20 08:00 Pulse 70 04/29/20 08:00 Resp 14 04/29/20 08:00 BP 140/70 04/29/20 09:26 Pulse Ox 93 L 04/29/20 08:00 I&O - Last 24 Hours: Intake & Output 04/29/20 04/29/20 04/29/20 06:59 14:59 22:59 Intake Total 513 Output Total 500 Balance 13 Ha Results Last 24 Hours: Microbiology 04/26/20 16:22 Aerobic Blood Culture - Preliminary Blood - Venous - Lab Draw NO GROWTH AFTER 3 DAYS Anaerobic Blood Culture - Final 04/26/20 16:12 Aerobic Blood Culture - Preliminary Blood - Venous NO GROWTH AFTER 3 DAYS Anaerobic Blood Culture - Preliminary NO GROWTH AFTER 3 DAYS 04/28/20 14:18 C. difficile Antigen & Toxins A,B - Final Stool / Feces Med Orders - Current: Current Medications Discontinued Medications Albuterol (Ventolin Hfa) 0 gm INH Q4H PRN PRN Reason: Shortness of Breath Alprazolam (Xanax) 0.5 mg PO BEDTIME PRN PRN Reason: Anxiety Last Admin: 04/28/20 19:56 Dose: 0.5 mg Documented by: Amoxicillin/Clavulanate Potassium (Augmentin 875 Mg/125 Mg) 1 tab PO ONETIME ONE Stop: 04/29/20 11:10 Enoxaparin Sodium (Lovenox) 40 mg SUBCUT Q24H [facility] Last Admin: 04/28/20 15:31 Dose: 40 mg Documented by: Hydralazine HCl (Apresoline) 20 mg IVPUSH Q6H PRN PRN Reason: Hypertension Lactated Ringer's (Ringers, Lactated) 1,000 mls @ 150 mls/hr IV ASDIRECTED [facility] Last Admin: 04/26/20 10:29 Dose: 150 mls/hr Documented by: Ceftriaxone Sodium/Dextrose 1 (gm/ Premix) 50 mls @ 100 mls/hr IV ONETIME ONE Stop: 04/26/20 12:02 Last Admin: 04/26/20 11:45 Dose: 100 mls/hr Documented by: Metronidazole 500 mg/ Premix 100 mls @ 100 mls/hr IV ONETIME ONE Stop: 04/26/20 12:47 Last Admin: 04/26/20 12:33 Dose: 100 mls/hr Documented by: Lactated Ringer's (Ringers, Lactated) 1,000 mls @ 125 mls/hr IV Q8H [facility] Last Admin: 04/27/20 06:45 Dose: 125 mls/hr Documented by: Piperacillin Sod/Tazobactam (Sod 3.375 gm/ Sodium Chloride) 50 mls @ 100 mls/hr IV Q6H [facility] Last Admin: 04/29/20 10:02 Dose: Not Given Documented by: Lactated Ringer's (Ringers, Lactated) 500 mls @ 999 mls/hr IV .BOLUS ONE Stop: 04/27/20 11:42 Last Admin: 04/27/20 12:04 Dose: 999 mls/hr Documented by: Pantoprazole Sodium 40 mg/ (Sodium Chloride) 10 mls @ 300 mls/hr IV DAILY [facility] Last Admin: 04/29/20 09:28 Dose: 300 mls/hr Documented by: Lactated Ringer's (Ringers, Lactated) 500 mls @ 1,000 mls/hr IV .BOLUS ONE Stop: 04/28/20 11:52 Last Admin: 04/28/20 12:11 Dose: 1,000 mls/hr Documented by: Iopamidol (Isovue Multipack-370 (76%)) 100 ml IVPUSH ONETIME ONE Stop: 04/26/20 11:39 Last Admin: 04/26/20 11:38 Dose: 100 ml Documented by: Isosorbide Mononitrate (Imdur) 30 mg PO DAILY [facility] Last Admin: 04/29/20 09:26 Dose: 30 mg Documented by: Ketorolac Tromethamine (Toradol) 30 mg IVPUSH ONETIME ONE Stop: 04/26/20 10:18 Last Admin: 04/26/20 10:29 Dose: 30 mg Documented by: Ketorolac Tromethamine (Toradol) 15 mg IVPUSH Q6H PRN PRN Reason: Pain Last Admin: 04/28/20 19:55 Dose: 15 mg Documented by: Levothyroxine Sodium (Synthroid) 50 mcg PO ACBREAKFAST [facility] Last Admin: 04/29/20 09:26 Dose: 50 mcg Documented by: Lisinopril (Prinivil) 20 mg PO ONETIME ONE Stop: 04/28/20 10:41 Last Admin: 04/28/20 11:40 Dose: 20 mg Documented by: Montelukast Sodium (Singulair) 5 mg PO DAILY [facility] Last Admin: 04/29/20 09:27 Dose: 5 mg Documented by: Ondansetron HCl (Zofran) 4 mg IVPUSH ONETIME ONE Stop: 04/26/20 10:18 Last Admin: 04/26/20 10:29 Dose: 4 mg Documented by: Ondansetron HCl (Zofran) 4 mg IVPUSH Q4H PRN PRN Reason: Nausea Last Admin: 04/27/20 03:17 Dose: 4 mg Documented by: Budesonide/Formoterol 160-4.5 Mcg/Puff 6 Gm Inhaler Own Med 0 each INH BIDRT [facility] Last Admin: 04/29/20 05:48 Dose: 2 each Documented by: Sodium Chloride (Saline Flush) 10 ml FLUSH ASDIRECTED PRN PRN Reason: Keep Vein Open Last Admin: 04/26/20 10:29 Dose: 10 ml Documented by: Sodium Chloride (Saline Flush) 2.5 ml FLUSH ASDIRECTED PRN PRN Reason: Keep Vein Open Last Admin: 04/26/20 10:29 Dose: 2.5 ml Documented by: Sepsis Event Note - Focused Exam Vital Signs: Vital Signs Temp Pulse Resp BP BP Pulse Ox 04/29/20 09:26 140/70 04/29/20 08:00 36.7 C 70 14 140/70 93 L Date Exam was Performed: 04/29/20 Time Exam was Performed: 19:11 - Problem List & Annotations (1) Diverticulitis SNOMED Code(s): 819244107 Code(s): K57.92 - DVTRCLI OF INTEST, PART UNSP, W/O PERF OR ABSCESS W/O BLEED Status: Acute (2) Diarrhea SNOMED Code(s): 06670094 Code(s): R19.7 - DIARRHEA, UNSPECIFIED Status: Acute (3) HTN (hypertension) SNOMED Code(s): 84822548 Code(s): I10 - ESSENTIAL (PRIMARY) HYPERTENSION Status: Chronic Priority: Low Qualifiers: Hypertension type: essential hypertension Qualified Code(s): I10 - Essential (primary) hypertension (4) History of asthma SNOMED Code(s): 174011361 Code(s): Z87.09 - PERSONAL HISTORY OF OTHER DISEASES OF THE RESPIRATORY SYSTEM Status: Chronic
[2020-04-27] MEDS: Enoxaparin 40 MG/0.4 ML Syringe SUBCUT SCH (15:51)
[2020-04-27] MEDS: Ketorolac 15 MG/ML SDV IVPUSH PRN (16:50)
[2020-04-28] MEDS: Piperacillin/Tazobactam 3.375 GM in Sodium Chloride 0.9% 50 ML IV SCH ×4 (02:43→20:35)
[2020-04-28] MEDS: BUDESONIDE INH SCH ×2 (05:41→20:08)
[2020-04-28] MEDS: FORMOTEROL INH SCH ×2 (05:41→20:08)
[2020-04-28] MEDS: Levothyroxine 50 MCG Tab PO SCH (06:34)
[2020-04-28 07:20] LABS: CARBON DIOXIDE,CO2 28.2 mmol/L (21.0-32.0); POTASSIUM,K 3.6 mmol/L (3.5-5.1)
[2020-04-28] MEDS: Pantoprazole 40 MG in Sodium Chloride 0.9% 10 ML IV SCH (08:44)
[2020-04-28] MEDS: Isosorbide Mononitrate 30 MG Tab.ER PO SCH (08:48)
[2020-04-28] MEDS: Montelukast 10 MG Tab PO SCH (08:49)
[2020-04-28] MEDS ORDERED: Lisinopril 10 MG Tab PO ONE (10:40)
[2020-04-28] MEDS ORDERED: Lactated Ringers 500 ML IV ONE (11:23)
--- NOTE | 2020-04-28 11:36 | PCM.DCSUM1 ---
Discharge Summary - Hospital Course Diagnosis: Stroke: No - Discharge Data Discharge Date: 04/28/20 Discharge Disposition: Home, Self-Care 01 Condition: Good - Referral to Home Health Primary Care Physician: Jaky Nelson MD - Discharge Diagnosis/Problem(s) (1) Diverticulitis SNOMED Code(s): 470804640 ICD Code: K57.92 - DVTRCLI OF INTEST, PART UNSP, W/O PERF OR ABSCESS W/O BLEED Status: Acute Current Visit: Yes - Patient Summary/Data Consults: Consultations 04/27/20 09:31 Consult to Physician [CONS] Routine - Patient Instructions Diet: GI Soft/Low Residue/Low Fiber Activity: As Tolerated Driving: May Drive Today Showering/Bathing: May Shower Notify Provider of: Fever, Increased Pain, Swelling and Redness, Nausea and/or Vomiting - Discharge Plan *PRESCRIPTION DRUG MONITORING PROGRAM REVIEWED*: No *COPY OF PRESCRIPTION DRUG MONITORING REPORT IN PATIENT ADA: No Prescriptions/Med Rec: metroNIDAZOLE [Flagyl] 500 mg PO Q8H #85 tab Levofloxacin 750 mg PO DAILY #28 tablet Pantoprazole Sodium [Protonix] 40 mg PO ACBREAKFAST #20 tablet. Ondansetron [Zofran ODT] 4 mg PO Q12H PRN #10 tab.dis PRN Reason: Nausea/Vomiting Home Medications: Home Meds ALPRAZolam [Xanax] 0.5 mg PO DAILY PRN 04/26/20 [History] Albuterol [Proair HFA] 2 inh INH Q4H PRN 04/26/20 [History] Biotin 1,000 mcg PO DAILY 04/26/20 [History] Budesonide/Formoterol [Symbicort 160-4.5 MCG] 2 inh IH BID 04/26/20 [History] Cholecalciferol (Vitamin D3) [Vitamin D3] 1,000 unit PO DAILY 04/26/20 [History] InFLIXimab [Remicade] 0 mg IV Q56D 04/26/20 [History] Isosorbide Mononitrate [Imdur] 30 mg PO DAILY 04/26/20 [History] Levothyroxine [Synthroid] 50 mcg PO ACBREAKFAST 04/26/20 [History] Montelukast [Singulair] 5 mg PO DAILY 04/26/20 [History] Rosuvastatin [Crestor] 5 mg PO DAILY 04/26/20 [History] hydroCHLOROthiazide [Hydrochlorothiazide] 12.5 mg PO DAILY 04/26/20 [History] lisinopriL [Lisinopril] 20 mg PO DAILY 04/26/20 [History] Levofloxacin 750 mg PO DAILY #28 tablet 04/28/20 [Rx] Ondansetron [Zofran ODT] 4 mg PO Q12H PRN #10 tab.dis 04/28/20 [Rx] Pantoprazole Sodium [Protonix] 40 mg PO ACBREAKFAST #20 tablet.dr 04/28/20 [Rx] metroNIDAZOLE [Flagyl] 500 mg PO Q8H #85 tab 04/28/20 [Rx] Patient Handouts: Diverticulitis, [id number] Referrals: Brittaney Welch MD [Physician] - 05/08/20 1:30 pm Jaky Nelson MD [Primary Care Provider] - 05/06/20 1:00 pm - Patient Data Vitals - Most Recent: Last Vital Signs Temp 36.6 C 04/28/20 08:00 Pulse 76 04/28/20 08:00 Resp 16 04/28/20 08:00 BP 162/70 H 04/28/20 08:48 Pulse Ox 94 L 04/28/20 08:00 Weight - Most Recent: 99.79 kg I&O - Last 24 hours: Intake & Output 04/27/20 04/28/20 04/28/20 22:59 06:59 14:59 Intake Total 700 450 Output Total 340 450 Balance 360 0 Lab Results - Last 24 hrs: Laboratory Results - last 24 hr 04/28/20 04/28/20 04/28/20 Range/Units 06:33 06:33 06:33 WBC 10.08 (4.0-11.0) K/uL RBC 3.47 L (4.30-5.90) M/uL Hgb 10.6 L (12.0-16.0) g/dL Hct 33.9 L (36.0-46.0) % MCV 97.7 (80.0-98.0) fL MCH 30.5 (27.0-32.0) pg MCHC 31.3 (31.0-37.0) g/dL RDW Std Deviation 44.4 (28.0-62.0) fl RDW Coeff of Jessika 13 (11.0-15.0) % Plt Count 278 (150-400) K/uL MPV 9.90 (7.40-12.00) fL Add Manual Diff YES Neutrophils % (Manual) 68 (48.0-80.0) % Band Neutrophils % 1 % Lymphocytes % (Manual) 17 (16.0-40.0) % Monocytes % (Manual) 4 (0.0-15.0) % Eosinophils % (Manual) 10 H (0.0-7.0) % Absolute Seg Neuts 6.9 H (1.4-5.7) Band Neutrophils # 0.1 Lymphocytes # (Manual) 1.7 (0.6-2.4) Monocytes # (Manual) 0.4 (0.0-0.8) Eosinophils # (Manual) 1.0 H (0.0-0.7) Sodium 141 (136-145) mmol/L Potassium 3.6 (3.5-5.1) mmol/L Chloride 107 (98-107) mmol/L Carbon Dioxide 28.2 (21.0-32.0) mmol/L BUN 13 (7.0-18.0) mg/dL Creatinine 1.2 H (0.6-1.0) mg/dL Est Cr Clr Drug Dosing 40.94 mL/min Estimated GFR (MDRD) 44.8 ml/min Glucose 97 (74-106) mg/dL Calcium 8.0 L (8.5-10.1) mg/dL Magnesium 1.9 (1.8-2.4) mg/dL Total Bilirubin 0.2 (0.2-1.0) mg/dL AST 17 (15-37) IU/L ALT 19 (14-63) IU/L Alkaline Phosphatase 101 (46-116) U/L Total Protein 6.7 (6.4-8.2) g/dL Albumin 2.5 L (3.4-5.0) g/dL Globulin 4.2 H (2.6-4.0) g/dL Albumin/Globulin Ratio 0.6 L (0.9-1.6) JESÚS Results - Last 24 hrs: Microbiology 04/26/20 16:22 Aerobic Blood Culture - Preliminary Blood - Venous - Lab Draw NO GROWTH AFTER 1 DAY Anaerobic Blood Culture - Final 04/26/20 16:12 Aerobic Blood Culture - Preliminary Blood - Venous NO GROWTH AFTER 1 DAY Anaerobic Blood Culture - Preliminary NO GROWTH AFTER 1 DAY Med Orders - Current: Current Medications Albuterol (Ventolin Hfa) 0 gm INH Q4H PRN PRN Reason: Shortness of Breath Alprazolam (Xanax) 0.5 mg PO BEDTIME PRN PRN Reason: Anxiety Last Admin: 04/27/20 21:05 Dose: 0.5 mg Documented by: Enoxaparin Sodium (Lovenox) 40 mg SUBCUT Q24H [facility] Last Admin: 04/27/20 15:51 Dose: 40 mg Documented by: Hydralazine HCl (Apresoline) 20 mg IVPUSH Q6H PRN PRN Reason: Hypertension Piperacillin Sod/Tazobactam (Sod 3.375 gm/ Sodium Chloride) 50 mls @ 100 mls/hr IV Q6H [facility] Last Admin: 04/28/20 08:51 Dose: 100 mls/hr Documented by: Pantoprazole Sodium 40 mg/ (Sodium Chloride) 10 mls @ 300 mls/hr IV DAILY [facility] Last Admin: 04/28/20 08:44 Dose: 300 mls/hr Documented by: Lactated Ringer's (Ringers, Lactated) 500 mls @ 1,000 mls/hr IV .BOLUS ONE Stop: 04/28/20 11:52 Isosorbide Mononitrate (Imdur) 30 mg PO DAILY [facility] Last Admin: 04/28/20 08:48 Dose: 30 mg Documented by: Ketorolac Tromethamine (Toradol) 15 mg IVPUSH Q6H PRN PRN Reason: Pain Last Admin: 04/27/20 16:50 Dose: 15 mg Documented by: Levothyroxine Sodium (Synthroid) 50 mcg PO ACBREAKFAST [facility] Last Admin: 04/28/20 06:34 Dose: 50 mcg Documented by: Montelukast Sodium (Singulair) 5 mg PO DAILY [facility] Last Admin: 04/28/20 08:49 Dose: 5 mg Documented by: Ondansetron HCl (Zofran) 4 mg IVPUSH Q4H PRN PRN Reason: Nausea Last Admin: 04/27/20 03:17 Dose: 4 mg Documented by: Budesonide/Formoterol 160-4.5 Mcg/Puff 6 Gm Inhaler Own Med 0 each INH BIDRT [facility] Last Admin: 04/28/20 05:41 Dose: 2 each Documented by: Sodium Chloride (Saline Flush) 2.5 ml FLUSH ASDIRECTED PRN PRN Reason: Keep Vein Open Last Admin: 04/26/20 10:29 Dose: 2.5 ml Documented by: Discontinued Medications Lactated Ringer's (Ringers, Lactated) 1,000 mls @ 150 mls/hr IV ASDIRECTED [facility] Last Admin: 04/26/20 10:29 Dose: 150 mls/hr Documented by: Ceftriaxone Sodium/Dextrose 1 (gm/ Premix) 50 mls @ 100 mls/hr IV ONETIME ONE Stop: 04/26/20 12:02 Last Admin: 04/26/20 11:45 Dose: 100 mls/hr Documented by: Metronidazole 500 mg/ Premix 100 mls @ 100 mls/hr IV ONETIME ONE Stop: 04/26/20 12:47 Last Admin: 04/26/20 12:33 Dose: 100 mls/hr Documented by: Lactated Ringer's (Ringers, Lactated) 1,000 mls @ 125 mls/hr IV Q8H [facility] Last Admin: 04/27/20 06:45 Dose: 125 mls/hr Documented by: Lactated Ringer's (Ringers, Lactated) 500 mls @ 999 mls/hr IV .BOLUS ONE Stop: 04/27/20 11:42 Last Admin: 04/27/20 12:04 Dose: 999 mls/hr Documented by: Iopamidol (Isovue Multipack-370 (76%)) 100 ml IVPUSH ONETIME ONE Stop: 04/26/20 11:39 Last Admin: 04/26/20 11:38 Dose: 100 ml Documented by: Ketorolac Tromethamine (Toradol) 30 mg IVPUSH ONETIME ONE Stop: 04/26/20 10:18 Last Admin: 04/26/20 10:29 Dose: 30 mg Documented by: Lisinopril (Prinivil) 20 mg PO ONETIME ONE Stop: 04/28/20 10:41 Ondansetron HCl (Zofran) 4 mg IVPUSH ONETIME ONE Stop: 04/26/20 10:18 Last Admin: 04/26/20 10:29 Dose: 4 mg Documented by: Sodium Chloride (Saline Flush) 10 ml FLUSH ASDIRECTED PRN PRN Reason: Keep Vein Open Last Admin: 04/26/20 10:29 Dose: 10 ml Documented by:
[2020-04-28] MEDS: Enoxaparin 40 MG/0.4 ML Syringe SUBCUT SCH (15:31)
--- NOTE | 2020-04-28 17:05 | PCM.PN ---
- General Info Date of Service: 04/28/20 Admission Dx/Problem (Free Text): Admission Diagnosis/Problem Admission Diagnosis/Problem Diverticulitis Subjective Update: Denies any abdominal pain, vomiting, No fevers or chills. has been having loose stools since AM. able to tolerate soft diet well. - Review of Systems General: Denies: Fever, Weakness Cardiovascular: Denies: Chest Pain, Palpitations Gastrointestinal: Reports: Diarrhea. Denies: Abdominal Pain, Decreased Appetite, Nausea, Vomiting Genitourinary: Denies: Dysuria, Frequency, Burning Musculoskeletal: Denies: Neck Pain, Shoulder Pain, Arm Pain Skin: Denies: Jaundice, Mottled, Pallor Neurological: Denies: Dizziness, Headache - Patient Data Vitals - Most Recent: Last Vital Signs Temp 36.5 C 04/28/20 11:42 Pulse 68 04/28/20 11:42 Resp 16 04/28/20 11:42 BP 150/55 H 04/28/20 11:42 Pulse Ox 94 L 04/28/20 14:00 Weight - Most Recent: 99.79 kg I&O - Last 24 Hours: Intake & Output 04/28/20 04/28/20 04/28/20 06:59 14:59 22:59 Intake Total 450 740 Output Total 450 300 Balance 0 440 Lab Results Last 24 Hours: Laboratory Results - last 24 hr 04/28/20 04/28/20 04/28/20 Range/Units 06:33 06:33 06:33 WBC 10.08 (4.0-11.0) K/uL RBC 3.47 L (4.30-5.90) M/uL Hgb 10.6 L (12.0-16.0) g/dL Hct 33.9 L (36.0-46.0) % MCV 97.7 (80.0-98.0) fL MCH 30.5 (27.0-32.0) pg MCHC 31.3 (31.0-37.0) g/dL RDW Std Deviation 44.4 (28.0-62.0) fl RDW Coeff of Jessika 13 (11.0-15.0) % Plt Count 278 (150-400) K/uL MPV 9.90 (7.40-12.00) fL Add Manual Diff YES Neutrophils % (Manual) 68 (48.0-80.0) % Band Neutrophils % 1 % Lymphocytes % (Manual) 17 (16.0-40.0) % Monocytes % (Manual) 4 (0.0-15.0) % Eosinophils % (Manual) 10 H (0.0-7.0) % Absolute Seg Neuts 6.9 H (1.4-5.7) Band Neutrophils # 0.1 Lymphocytes # (Manual) 1.7 (0.6-2.4) Monocytes # (Manual) 0.4 (0.0-0.8) Eosinophils # (Manual) 1.0 H (0.0-0.7) Sodium 141 (136-145) mmol/L Potassium 3.6 (3.5-5.1) mmol/L Chloride 107 (98-107) mmol/L Carbon Dioxide 28.2 (21.0-32.0) mmol/L BUN 13 (7.0-18.0) mg/dL Creatinine 1.2 H (0.6-1.0) mg/dL Est Cr Clr Drug Dosing 40.94 mL/min Estimated GFR (MDRD) 44.8 ml/min Glucose 97 (74-106) mg/dL Calcium 8.0 L (8.5-10.1) mg/dL Magnesium 1.9 (1.8-2.4) mg/dL Total Bilirubin 0.2 (0.2-1.0) mg/dL AST 17 (15-37) IU/L ALT 19 (14-63) IU/L Alkaline Phosphatase 101 (46-116) U/L Total Protein 6.7 (6.4-8.2) g/dL Albumin 2.5 L (3.4-5.0) g/dL Globulin 4.2 H (2.6-4.0) g/dL Albumin/Globulin Ratio 0.6 L (0.9-1.6) Ha Results Last 24 Hours: Microbiology 04/26/20 16:22 Aerobic Blood Culture - Preliminary Blood - Venous - Lab Draw NO GROWTH AFTER 2 DAYS Anaerobic Blood Culture - Final 04/26/20 16:12 Aerobic Blood Culture - Preliminary Blood - Venous NO GROWTH AFTER 2 DAYS Anaerobic Blood Culture - Preliminary NO GROWTH AFTER 2 DAYS Med Orders - Current: Current Medications Albuterol (Ventolin Hfa) 0 gm INH Q4H PRN PRN Reason: Shortness of Breath Alprazolam (Xanax) 0.5 mg PO BEDTIME PRN PRN Reason: Anxiety Last Admin: 04/27/20 21:05 Dose: 0.5 mg Documented by: Enoxaparin Sodium (Lovenox) 40 mg SUBCUT Q24H [facility] Last Admin: 04/28/20 15:31 Dose: 40 mg Documented by: Hydralazine HCl (Apresoline) 20 mg IVPUSH Q6H PRN PRN Reason: Hypertension Piperacillin Sod/Tazobactam (Sod 3.375 gm/ Sodium Chloride) 50 mls @ 100 mls/hr IV Q6H [facility] Last Admin: 04/28/20 15:27 Dose: 100 mls/hr Documented by: Pantoprazole Sodium 40 mg/ (Sodium Chloride) 10 mls @ 300 mls/hr IV DAILY [facility] Last Admin: 04/28/20 08:44 Dose: 300 mls/hr Documented by: Isosorbide Mononitrate (Imdur) 30 mg PO DAILY [facility] Last Admin: 04/28/20 08:48 Dose: 30 mg Documented by: Ketorolac Tromethamine (Toradol) 15 mg IVPUSH Q6H PRN PRN Reason: Pain Last Admin: 04/27/20 16:50 Dose: 15 mg Documented by: Levothyroxine Sodium (Synthroid) 50 mcg PO ACBREAKFAST [facility] Last Admin: 04/28/20 06:34 Dose: 50 mcg Documented by: Montelukast Sodium (Singulair) 5 mg PO DAILY [facility] Last Admin: 04/28/20 08:49 Dose: 5 mg Documented by: Ondansetron HCl (Zofran) 4 mg IVPUSH Q4H PRN PRN Reason: Nausea Last Admin: 04/27/20 03:17 Dose: 4 mg Documented by: Budesonide/Formoterol 160-4.5 Mcg/Puff 6 Gm Inhaler Own Med 0 each INH BIDRT [facility] Last Admin: 04/28/20 05:41 Dose: 2 each Documented by: Sodium Chloride (Saline Flush) 2.5 ml FLUSH ASDIRECTED PRN PRN Reason: Keep Vein Open Last Admin: 04/26/20 10:29 Dose: 2.5 ml Documented by: Discontinued Medications Lactated Ringer's (Ringers, Lactated) 1,000 mls @ 150 mls/hr IV ASDIRECTED [facility] Last Admin: 04/26/20 10:29 Dose: 150 mls/hr Documented by: Ceftriaxone Sodium/Dextrose 1 (gm/ Premix) 50 mls @ 100 mls/hr IV ONETIME ONE Stop: 04/26/20 12:02 Last Admin: 04/26/20 11:45 Dose: 100 mls/hr Documented by: Metronidazole 500 mg/ Premix 100 mls @ 100 mls/hr IV ONETIME ONE Stop: 04/26/20 12:47 Last Admin: 04/26/20 12:33 Dose: 100 mls/hr Documented by: Lactated Ringer's (Ringers, Lactated) 1,000 mls @ 125 mls/hr IV Q8H [facility] Last Admin: 04/27/20 06:45 Dose: 125 mls/hr Documented by: Lactated Ringer's (Ringers, Lactated) 500 mls @ 999 mls/hr IV .BOLUS ONE Stop: 04/27/20 11:42 Last Admin: 04/27/20 12:04 Dose: 999 mls/hr Documented by: Lactated Ringer's (Ringers, Lactated) 500 mls @ 1,000 mls/hr IV .BOLUS ONE Stop: 04/28/20 11:52 Last Admin: 04/28/20 12:11 Dose: 1,000 mls/hr Documented by: Iopamidol (Isovue Multipack-370 (76%)) 100 ml IVPUSH ONETIME ONE Stop: 04/26/20 11:39 Last Admin: 04/26/20 11:38 Dose: 100 ml Documented by: Ketorolac Tromethamine (Toradol) 30 mg IVPUSH ONETIME ONE Stop: 04/26/20 10:18 Last Admin: 04/26/20 10:29 Dose: 30 mg Documented by: Lisinopril (Prinivil) 20 mg PO ONETIME ONE Stop: 04/28/20 10:41 Last Admin: 04/28/20 11:40 Dose: 20 mg Documented by: Ondansetron HCl (Zofran) 4 mg IVPUSH ONETIME ONE Stop: 04/26/20 10:18 Last Admin: 04/26/20 10:29 Dose: 4 mg Documented by: Sodium Chloride (Saline Flush) 10 ml FLUSH ASDIRECTED PRN PRN Reason: Keep Vein Open Last Admin: 04/26/20 10:29 Dose: 10 ml Documented by: - Exam Quality Assessment: No: Supplemental Oxygen General: Alert, Oriented, Cooperative Neck: Supple, Trachea Midline Lungs: Clear to Auscultation, Normal Respiratory Effort Cardiovascular: Regular Rate, Regular Rhythm GI/Abdominal Exam: Soft, Non-Tender, No Distention, Abnormal Bowel Sounds (increased). No: Distended, Guarding, Rigid, Hepatomegaly, Splenomegaly Sepsis Event Note - Evaluation Sepsis Screening Result: No Definite Risk - Focused Exam Vital Signs: Vital Signs Temp Pulse Resp BP BP Pulse Ox Pulse Ox 04/28/20 14:00 94 L 04/28/20 11:42 36.5 C 68 16 150/55 H 94 L 04/28/20 11:40 150/55 H 04/28/20 08:48 162/70 H 04/28/20 08:00 36.6 C 76 16 162/70 H 94 L Date Exam was Performed: 04/28/20 Time Exam was Performed: 17:00 - Problem List & Annotations (1) Diverticulitis SNOMED Code(s): 949456620 Code(s): K57.92 - DVTRCLI OF INTEST, PART UNSP, W/O PERF OR ABSCESS W/O BLEED Status: Acute Current Visit: Yes (2) Diarrhea SNOMED Code(s): 69662314 Code(s): R19.7 - DIARRHEA, UNSPECIFIED Status: Acute Current Visit: Yes (3) HTN (hypertension) SNOMED Code(s): 54913578 Code(s): I10 - ESSENTIAL (PRIMARY) HYPERTENSION Status: Chronic Priority: Low Current Visit: No Qualifiers: Hypertension type: essential hypertension Qualified Code(s): I10 - Essential (primary) hypertension (4) History of asthma SNOMED Code(s): 412100648 Code(s): Z87.09 - PERSONAL HISTORY OF OTHER DISEASES OF THE RESPIRATORY SYSTEM Status: Chronic Current Visit: No - Problem List Review Problem List Initiated/Reviewed/Updated: Yes - My Orders Last 24 Hours: My Active Orders 04/28/20 Breakfast Soft Diet [DIET] 04/28/20 14:18 OVA & PARASITES BY IMMUNOASSAY [MREF] Routine STOOL CULTURE/SHIGA TOXIN [MREF] Routine - Plan Plan:: Assessment and Plan: 1 Acute diverticulitis: - Diet advanced to soft. Will give IV LR 500 cc bolus, and cont IV fluids, Cylinder Honer slightly up, Continue IV zosyn. -Check stools studies and Cdiff for diarrhea - Per general surgery, patient will require outpatient PO antibiotics for 3 weeks, recommend colonoscopy 8 weeks after and low fiber diet for 3 months. 2. Asthma: - Continue Symbicort. 3. HTN/HLD - cont hctz, lisinopril. 4. DVT prophylaxis: Lovenox.
[2020-04-28] MEDS: Ketorolac 15 MG/ML SDV IVPUSH PRN (19:55)
[2020-04-28] MEDS: ALPRAZolam 0.5 MG Tab PO PRN (19:56)
[2020-04-29] MEDS: Piperacillin/Tazobactam 3.375 GM in Sodium Chloride 0.9% 50 ML IV SCH ×3 (03:03→10:02)
[2020-04-29] MEDS: FORMOTEROL INH SCH (05:48)
[2020-04-29] MEDS: BUDESONIDE INH SCH (05:48)
[2020-04-29] MEDS: Levothyroxine 50 MCG Tab PO SCH ×2 (06:47→09:26)
[2020-04-29] MEDS: Isosorbide Mononitrate 30 MG Tab.ER PO SCH (09:26)
[2020-04-29] MEDS: Montelukast 10 MG Tab PO SCH (09:27)
[2020-04-29] MEDS: Pantoprazole 40 MG in Sodium Chloride 0.9% 10 ML IV SCH (09:28)
[2020-04-29 09:29] VITALS: BP 140/70
[2020-04-29 09:38] VITALS: PULSE 70
[2020-04-29] MEDS ORDERED: Amoxicillin/Clavulanate K 875-125 MG Tab PO ONE (11:09)
--- NOTE | 2020-04-29 11:10 | PCM.DCSUM1 ---
Discharge Summary - Hospital Course Brief History: This 69 year old female with pmh of diverticulosis, HTN, HLD, RA on Remicade, asthma and hypothyroidism presented to the ED with complaints of LLQ pain and cramping. She reports this has been going on for some weeks, initially being treated outpatient for constipation and then obtained a CT and was started on Cipro and Flagyl, but didn't take Cipro because she is allergic to it. She reports the last couple days she has because very tired, having subjective fever and chills with worsening abdominal pain. She has no appetite, tolerating liquids. She reports she had a colonoscopy 1 1/[address] Welch and only had diverticulosis. She reports she was hospitalized 3 years ago for diverticulitis, otherwise has been doing well since. She denies tobacco use, no alcohol use and no recreational drug use. In the ED leukocytosis noted, hgb 12.8, Na 141, K+ 3.8, Cr 1.1 BUN 18, alk phos 129/ CT abdomen/pelvis revealed inflammatory changes around sigmoid colon and possible abscess or cyst area measuring 1.[address] Arshad contacted by ED, he saw CT and evaluated patient. Recommended admission with IV antibiotics, NPO for now. follow up with General surgery as outpatient for outpatient colonoscopy. Recommend 2-3 weeks abx treatment. If pain worsens, reconsult surgery as needed. She will be admitted inpatient for acute sigmoid diverticulitis. She was due to receive Remicade yesterday , but was to sick to go to appointment. last infusion was 5 weeks ago. Diagnosis: Stroke: No - Discharge Data Discharge Date: 04/29/20 Discharge Disposition: Home, Self-Care 01 Condition: Good - Referral to Home Health Primary Care Physician: Jaky Nelson MD - Discharge Diagnosis/Problem(s) (1) Diverticulitis of sigmoid colon SNOMED Code(s): 799604359 ICD Code: K57.32 - DVTRCLI OF LG INT W/O PERFORATION OR ABSCESS W/O BLEEDING Status: Acute Current Visit: No (2) HTN (hypertension) SNOMED Code(s): 36296851 ICD Code: I10 - ESSENTIAL (PRIMARY) HYPERTENSION Status: Chronic Priority: Low Current Visit: No Qualifiers: Hypertension type: essential hypertension Qualified Code(s): I10 - Essential (primary) hypertension (3) History of asthma SNOMED Code(s): 691027923 ICD Code: Z87.09 - PERSONAL HISTORY OF OTHER DISEASES OF THE RESPIRATORY SYSTEM Status: Chronic Current Visit: No (4) Hypothyroid SNOMED Code(s): 78283891 ICD Code: E03.9 - HYPOTHYROIDISM, UNSPECIFIED Status: Chronic Current Visit: No Qualifiers: Hypothyroidism type: unspecified Qualified Code(s): E03.9 - Hypothyroidism, unspecified (5) Rheumatoid arthritis SNOMED Code(s): 85355856 ICD Code: M06.9 - RHEUMATOID ARTHRITIS, UNSPECIFIED Status: Chronic Priority: Low Current Visit: No Qualifiers: Rheumatoid factor presence: unspecified presence Laterality: unspecified laterality - Patient Summary/Data Consults: Consultations 04/27/20 09:31 Consult to Physician [CONS] Routine Hospital Course: Admitting Diagnoses: Acute sigmoid diverticulitis Discharge Diagnoses: Acute sigmoid diverticulitis Kristyn was admitted after CT scan revealed acute sigmoid diverticulitis. There was question regarding tiny abscess, Dr Arshad consulted and recommended medical management. She was admitted and treated with Zosyn, due to fluoroquinolone allergy. She was kept NPO and pain improved. Diet was slowly increased which she tolerated well. Leukocytosis improved. SHe did have some mild diarrhea, stool studies obtained, Cdiff negative.Other studies still pending. Likely related to antibiotics. She will be discharged home today on 11 more days of Augmentin. Outpatient appointment with general surgery was arranged, previously she saw Dr Welch and requested to see her again. She will also have follow up with PCP in 1 week. She is to continue soft low fiber diet, slowly increasing to regular over next few days. Keep low fiber for next 1-2 weeks, then return to high fiber diet. She is to return to ED or clinic if concerns should arise. - Patient Instructions Diet: GI Soft/Low Residue/Low Fiber (Keep low fiber diet for 1-2 weeks, slowly increase to normal diet consistency over next couple days. ) Activity: As Tolerated Driving: May Drive Today Showering/Bathing: May Shower Notify Provider of: Fever, Increased Pain, Swelling and Redness, Nausea and/or Vomiting - Discharge Plan *PRESCRIPTION DRUG MONITORING PROGRAM REVIEWED*: No *COPY OF PRESCRIPTION DRUG MONITORING REPORT IN PATIENT ADA: No Prescriptions/Med Rec: Amoxicillin/Clavulanate K [Augmentin 875-125 MG] 1 tab PO BID #22 tablet L.acidoph,Paracasei, B.lactis [Probiotic] 1 each PO DAILY #1 bottle Pantoprazole Sodium [Protonix] 40 mg PO ACBREAKFAST #20 tablet. Ondansetron [Zofran ODT] 4 mg PO Q12H PRN #10 tab.dis PRN Reason: Nausea/Vomiting Home Medications: Home Meds ALPRAZolam [Xanax] 0.5 mg PO DAILY PRN 04/26/20 [History] Albuterol [Proair HFA] 2 inh INH Q4H PRN 04/26/20 [History] Biotin 1,000 mcg PO DAILY 04/26/20 [History] Budesonide/Formoterol [Symbicort 160-4.5 MCG] 2 inh IH BID 04/26/20 [History] Cholecalciferol (Vitamin D3) [Vitamin D3] 1,000 unit PO DAILY 04/26/20 [History] InFLIXimab [Remicade] 0 mg IV Q56D 04/26/20 [History] Isosorbide Mononitrate [Imdur] 30 mg PO DAILY 04/26/20 [History] Levothyroxine [Synthroid] 50 mcg PO ACBREAKFAST 04/26/20 [History] Montelukast [Singulair] 5 mg PO DAILY 04/26/20 [History] Rosuvastatin [Crestor] 5 mg PO DAILY 04/26/20 [History] hydroCHLOROthiazide [Hydrochlorothiazide] 12.5 mg PO DAILY 04/26/20 [History] lisinopriL [Lisinopril] 20 mg PO DAILY 04/26/20 [History] Ondansetron [Zofran ODT] 4 mg PO Q12H PRN #10 tab.dis 04/28/20 [Rx] Pantoprazole Sodium [Protonix] 40 mg PO ACBREAKFAST #20 tablet. 04/28/20 [Rx] Amoxicillin/Clavulanate K [Augmentin 875-125 MG] 1 tab PO BID #22 tablet 04/29/20 [Rx] L.acidoph,Paracasei, B.lactis [Probiotic] 1 each PO DAILY #1 bottle 04/29/20 [Rx] Patient Handouts: Amoxicillin; Clavulanic Acid tablets, Diverticulitis, [id number], Ondansetron tablets, Pantoprazole tablets, Low-Fiber Eating Plan Referrals: Brittaney Welch MD [Physician] - 05/08/20 1:30 pm Jaky Nelson MD [Primary Care Provider] - 05/06/20 1:00 pm - Discharge Summary/Plan Comment DC Time >30 min.: No - Patient Data Vitals - Most Recent: Last Vital Signs Temp 98.1 F 04/29/20 08:00 Pulse 70 04/29/20 08:00 Resp 14 04/29/20 08:00 BP 140/70 04/29/20 09:26 Pulse Ox 93 L 04/29/20 08:00 Weight - Most Recent: 99.79 kg I&O - Last 24 hours: Intake & Output 04/28/20 04/29/20 04/29/20 22:59 06:59 14:59 Intake Total 740 513 Output Total 300 500 Balance 440 13 JESÚS Results - Last 24 hrs: Microbiology 04/28/20 14:18 C. difficile Antigen & Toxins A,B - Final Stool / Feces 04/26/20 16:22 Aerobic Blood Culture - Preliminary Blood - Venous - Lab Draw NO GROWTH AFTER 2 DAYS Anaerobic Blood Culture - Final 04/26/20 16:12 Aerobic Blood Culture - Preliminary Blood - Venous NO GROWTH AFTER 2 DAYS Anaerobic Blood Culture - Preliminary NO GROWTH AFTER 2 DAYS Med Orders - Current: Current Medications Albuterol (Ventolin Hfa) 0 gm INH Q4H PRN PRN Reason: Shortness of Breath Alprazolam (Xanax) 0.5 mg PO BEDTIME PRN PRN Reason: Anxiety Last Admin: 04/28/20 19:56 Dose: 0.5 mg Documented by: Amoxicillin/Clavulanate Potassium (Augmentin 875 Mg/125 Mg) 1 tab PO ONETIME ONE Stop: 04/29/20 11:10 Enoxaparin Sodium (Lovenox) 40 mg SUBCUT Q24H [facility] Last Admin: 04/28/20 15:31 Dose: 40 mg Documented by: Hydralazine HCl (Apresoline) 20 mg IVPUSH Q6H PRN PRN Reason: Hypertension Piperacillin Sod/Tazobactam (Sod 3.375 gm/ Sodium Chloride) 50 mls @ 100 mls/hr IV Q6H [facility] Last Admin: 04/29/20 10:02 Dose: Not Given Documented by: Pantoprazole Sodium 40 mg/ (Sodium Chloride) 10 mls @ 300 mls/hr IV DAILY [facility] Last Admin: 04/29/20 09:28 Dose: 300 mls/hr Documented by: Isosorbide Mononitrate (Imdur) 30 mg PO DAILY [facility] Last Admin: 04/29/20 09:26 Dose: 30 mg Documented by: Ketorolac Tromethamine (Toradol) 15 mg IVPUSH Q6H PRN PRN Reason: Pain Last Admin: 04/28/20 19:55 Dose: 15 mg Documented by: Levothyroxine Sodium (Synthroid) 50 mcg PO ACBREAKFAST [facility] Last Admin: 04/29/20 09:26 Dose: 50 mcg Documented by: Montelukast Sodium (Singulair) 5 mg PO DAILY [facility] Last Admin: 04/29/20 09:27 Dose: 5 mg Documented by: Ondansetron HCl (Zofran) 4 mg IVPUSH Q4H PRN PRN Reason: Nausea Last Admin: 04/27/20 03:17 Dose: 4 mg Documented by: Budesonide/Formoterol 160-4.5 Mcg/Puff 6 Gm Inhaler Own Med 0 each INH BIDRT [facility] Last Admin: 04/29/20 05:48 Dose: 2 each Documented by: Sodium Chloride (Saline Flush) 2.5 ml FLUSH ASDIRECTED PRN PRN Reason: Keep Vein Open Last Admin: 04/26/20 10:29 Dose: 2.5 ml Documented by: Discontinued Medications Lactated Ringer's (Ringers, Lactated) 1,000 mls @ 150 mls/hr IV ASDIRECTED [facility] Last Admin: 04/26/20 10:29 Dose: 150 mls/hr Documented by: Ceftriaxone Sodium/Dextrose 1 (gm/ Premix) 50 mls @ 100 mls/hr IV ONETIME ONE Stop: 04/26/20 12:02 Last Admin: 04/26/20 11:45 Dose: 100 mls/hr Documented by: Metronidazole 500 mg/ Premix 100 mls @ 100 mls/hr IV ONETIME ONE Stop: 04/26/20 12:47 Last Admin: 04/26/20 12:33 Dose: 100 mls/hr Documented by: Lactated Ringer's (Ringers, Lactated) 1,000 mls @ 125 mls/hr IV Q8H [facility] Last Admin: 04/27/20 06:45 Dose: 125 mls/hr Documented by: Lactated Ringer's (Ringers, Lactated) 500 mls @ 999 mls/hr IV .BOLUS ONE Stop: 04/27/20 11:42 Last Admin: 04/27/20 12:04 Dose: 999 mls/hr Documented by: Lactated Ringer's (Ringers, Lactated) 500 mls @ 1,000 mls/hr IV .BOLUS ONE Stop: 04/28/20 11:52 Last Admin: 04/28/20 12:11 Dose: 1,000 mls/hr Documented by: Iopamidol (Isovue Multipack-370 (76%)) 100 ml IVPUSH ONETIME ONE Stop: 04/26/20 11:39 Last Admin: 04/26/20 11:38 Dose: 100 ml Documented by: Ketorolac Tromethamine (Toradol) 30 mg IVPUSH ONETIME ONE Stop: 04/26/20 10:18 Last Admin: 04/26/20 10:29 Dose: 30 mg Documented by: Lisinopril (Prinivil) 20 mg PO ONETIME ONE Stop: 04/28/20 10:41 Last Admin: 04/28/20 11:40 Dose: 20 mg Documented by: Ondansetron HCl (Zofran) 4 mg IVPUSH ONETIME ONE Stop: 04/26/20 10:18 Last Admin: 04/26/20 10:29 Dose: 4 mg Documented by: Sodium Chloride (Saline Flush) 10 ml FLUSH ASDIRECTED PRN PRN Reason: Keep Vein Open Last Admin: 04/26/20 10:29 Dose: 10 ml Documented by: - Exam General: Reports: Alert, Oriented, Cooperative, No Acute Distress Lungs: Reports: Clear to Auscultation, Normal Respiratory Effort Cardiovascular: Reports: Regular Rate, Regular Rhythm GI/Abdominal Exam: Normal Bowel Sounds, Soft, Non-Tender, No Mass Neurological: Reports: No New Focal Deficit Psy/Mental Status: Reports: Alert, Normal Affect, Normal Mood
== END 2020-04-29 12:55 | disposition home or self-care (01) | DRG 392 ==
LOC: MW.ED 09:57 → MW.MS 13:02
PROVIDERS: ADMIT Student in an Organized Health Care Education/Training Program; ATTEND Student in an Organized Health Care Education/Training Program
DX: K57.92 Diverticulitis of intestine, part unspecified, without perforation or abscess without bleeding (principal); K57.32 Diverticulitis of large intestine without perforation or abscess without bleeding; K59.00 Constipation, unspecified; I10 Essential (primary) hypertension; E03.9 Hypothyroidism, unspecified; M06.9 Rheumatoid arthritis, unspecified; E78.5 Hyperlipidemia, unspecified; Z20.828 Contact with and (suspected) exposure to other viral communicable diseases; Z88.6 Allergy status to analgesic agent; F41.9 Anxiety disorder, unspecified; F32.9 Major depressive disorder, single episode, unspecified; E66.9 Obesity, unspecified; Z79.890 Hormone replacement therapy; Z90.49 Acquired absence of other specified parts of digestive tract; Z87.09 Personal history of other diseases of the respiratory system; Z79.899 Other long term (current) drug therapy; Z88.1 Allergy status to other antibiotic agents; Z88.5 Allergy status to narcotic agent; Z88.2 Allergy status to sulfonamides; Z68.36 Body mass index [BMI] 36.0-36.9, adult; J45.909 Unspecified asthma, uncomplicated
CPT/HCPCS: 36415; 74177; 80053; 81003; 83605; 85025; 96361; 96365; 96367; 96375; 99285; J0696; J1885; J2405; J3490; J7120; Q9967; U0002; 83735; 87040; 87045; 87046; 87324; 87328; 87329; 87449; 87899; 94640; 99284; A9270-GY; C9113; J1650; J2543; J7050

== ENCOUNTER 2022-11-08 13:52 | Emergency (ER) | payer MEDICARE ==
[2022-11-08] MEDS ORDERED: Ibuprofen 400 MG Tab PO ONE (14:48)
[2022-11-08] MEDS ORDERED: Acetaminophen/oxyCODONE 325-5 MG Tab PO ONE ×2 (14:48→18:06)
[2022-11-08] MEDS ORDERED: Ondansetron 4 MG Tab.DIS PO ONE (15:53)
[2022-11-08] MEDS ORDERED: HYDROmorphone 1 MG/ML Syringe IM ONE (15:53)
[2022-11-08 18:28] VITALS: BP 140/56; PULSE 64
== END 2022-11-08 18:26 | disposition home or self-care (01) ==
LOC: MW.ED 13:52
DX: S52.102A Unspecified fracture of upper end of left radius, initial encounter for closed fracture (principal); S52.002A Unspecified fracture of upper end of left ulna, initial encounter for closed fracture; S00.31XA Abrasion of nose, initial encounter; I10 Essential (primary) hypertension; E03.9 Hypothyroidism, unspecified; E66.9 Obesity, unspecified; Z68.34 Body mass index [BMI] 34.0-34.9, adult; Z88.1 Allergy status to other antibiotic agents; Z88.5 Allergy status to narcotic agent; Z88.2 Allergy status to sulfonamides; Z79.899 Other long term (current) drug therapy; W00.0XXA Fall on same level due to ice and snow, initial encounter
CPT/HCPCS: 73060; 73080; 73110; 96372; 99283; A9270; J1170